=== PATIENT | female | born 1980 | race Caucasian/White ===

== ENCOUNTER 2016-03-23 07:42 | Emergency (ER) | payer MEDICARE, BC ==
[2016-03-23 07:46] VITALS: BP 146/93; PULSE 120; RESP 20; TEMP 97.9
[2016-03-23] MEDS ORDERED: KETOROLAC 60 MG/2 ML VIAL IM STA (08:20)
--- NOTE | 2016-03-23 08:23 | ED ---
ENT HPI - General Chief complaint: Dental/Oral Stated complaint: dental Time Seen by Provider: 03/23/16 08:09 Source: patient, RN notes reviewed Mode of arrival: ambulatory Limitations: no limitations - History of Present Illness Initial comments: 36-year-old female presents emergency Department with chief complaint of dental pain. Patient states she's been having on and off dental pain since beginning of the year. Patient was on penicillin and multiple other antibiotics for pneumonia. Patient states that over the last which she's had increased pain. She states that she just got dental insurance no she has not scheduled appointment as she states she has to wait for her taxes to come in. I did explain to her that she should follow-up sooner and scheduled appointment if there is awaiting period. Patient denies fever, chills, neck stiffness, headache or dizziness. Patient states she has right upper dental pain. She states she's missing almost all her teeth. - Related Data Home Medications Medication Instructions Recorded Confirmed Gabapentin 800 mg PO QID 05/12/14 03/23/16 oxyCODONE-APAP 10-325MG [Percocet 1 tab PO QID PRN 08/21/15 03/23/16 10-325 mg] ALPRAZolam [Xanax] 0.5 mg PO BID PRN 03/23/16 03/23/16 Baclofen [Lioresal] 10 mg PO TID PRN 03/23/16 03/23/16 Lisdexamfetamine Dimesylate 70 mg PO QAM 03/23/16 03/23/16 [Vyvanse] Promethazine HCl/Codeine 5 ml PO TID PRN 03/23/16 03/23/16 [Prometh-Codein 6.25-10 mg/5 ml] Previous Rx's Medication Instructions Recorded Clindamycin HCl 300 mg PO Q6HR #40 cap 03/23/16 Allergies Allergy/AdvReac Type Severity Reaction Status Date / Time magnesium Allergy Unknown Verified 03/23/16 08:17 ondansetron HCl Allergy Unknown Verified 03/23/16 08:17 [From Zofran (as hydrochloride)] prochlorperazine Allergy Unknown Verified 03/23/16 08:17 [From Compazine] Sulfa (Sulfonamide Allergy Unknown Verified 03/23/16 08:17 Antibiotics) terbutaline sulfate Allergy Unknown Verified 03/23/16 08:17 [From Hari] Review of Systems ROS Statement: Those systems with pertinent positive or pertinent negative responses have been documented in the HPI. ROS Other: All systems not noted in ROS Statement are negative. Past Medical History Past Medical History: Osteoarthritis (OA) History of Any Multi-Drug Resistant Organisms: None Reported Past Surgical History: Appendectomy, Cholecystectomy, Hysterectomy, Orthopedic Surgery Additional Past Surgical History / Comment(s): chronic back pain herniated discs Past Psychological History: No Psychological Hx Reported Smoking Status: Current every day smoker Past Alcohol Use History: Occasional Past Drug Use History: None Reported General Exam Limitations: no limitations General appearance: alert, in no apparent distress Head exam: Present: atraumatic, normocephalic, normal inspection Eye exam: Present: normal appearance, PERRL, EOMI. Absent: scleral icterus, conjunctival injection, periorbital swelling ENT exam: Present: mucous membranes moist, TM's normal bilaterally, normal external ear exam, other (No trismus patient has no mandible tenderness). Absent: normal exam, normal oropharynx (Edentulous, all dentition are eroded with no definite abscess there is mild swelling the right upper region with no erythema) Neck exam: Present: normal inspection, tenderness, full ROM, lymphadenopathy Respiratory exam: Present: normal lung sounds bilaterally. Absent: respiratory distress, wheezes, rales, rhonchi, stridor Cardiovascular Exam: Present: regular rate, normal rhythm, normal heart sounds. Absent: systolic murmur, diastolic murmur, rubs, gallop, clicks GI/Abdominal exam: Present: soft, normal bowel sounds. Absent: distended, tenderness, guarding, rebound, rigid Neurological exam: Present: alert, oriented X3, CN II-XII intact Skin exam: Present: warm, dry, intact, normal color. Absent: rash Course Vital Signs 03/23/16 07:43 Temperature 97.9 F Pulse Rate 120 H Respiratory 20 Rate Blood Pressure 146/93 O2 Sat by Pulse 97 Oximetry Medical Decision Making - Medical Decision Making 28-year-old female presented for dental pain. Patient is very edentulous and has all her teeth eroded. Patient is advised to follow-up with dentist in one to 2 days. Patient was started on clindamycin. Patient has normal pain meds by her primary care physician Dr. Pineda. Patient is advised to follow-up with him for further pain medication which includes Percocet. Disposition Clinical Impression: Pain due to dental caries, Fracture of tooth Disposition: HOME SELF-CARE Condition: Stable Instructions: Dental Caries (ED), Toothache (ED) Additional Instructions: Please return to the Emergency Department if symptoms worsen or any other concerns. Follow-up with your primary care physician for pain medications.Schedule an appointment in one to 2 days with your dentist. Referrals: Tom Anguiano MD [Primary Care Provider] - 1-2 days Time of Disposition: 08:23
== END 2016-03-23 08:42 | disposition home or self-care (01) ==
LOC: EC 07:42
DX: S02.5XXA Fracture of tooth (traumatic), initial encounter for closed fracture (principal); K02.9 Dental caries, unspecified; M19.90 Unspecified osteoarthritis, unspecified site; F17.200 Nicotine dependence, unspecified, uncomplicated; Z79.899 Other long term (current) drug therapy; Z88.2 Allergy status to sulfonamides; Z88.8 Allergy status to other drugs, medicaments and biological substances
CPT/HCPCS: 99282; 96372; J1885

== ENCOUNTER → 2016-04-06 | Outpatient (CLI) | payer BC, MEDICARE ==
[2016-04-03 17:40] VITALS: BMI 23.9
[2016-04-06 13:21] VITALS: BP 125/84; PULSE 90; RESP 16; TEMP 97.8
--- NOTE | 2016-04-06 13:34 | P.HPIM ---
History of Present Illness H&P Date: 04/06/16 Chief Complaint: neck and low back pain This is a 36-year-old patient referred by Dr. Anguiano for chronic pain in neck and low back with some radiation to legs. Patient has been taking medications from primary care physician including Percocet medications with some relief; patient states that she used to be on Oxycontin at extremely high doses but came off these medications herself. Patient denies adverse drug effects from medications. Patient also denies new-onset weakness, bowel/bladder incontinence , or any other signs or symptoms of cauda equina syndrome. There are no signs of acute intoxication, and no indications of medication diversion or overuse. Patient notes that pain worsens significantly with physical activity and walking , and improves with rest, ice and medication. Patient has used several types of medications for pain, including NSAIDS, OPIOIDS (including Percocet and Oxycontin), TRAMADOL, ANTIDEPRESSANTS, and BENZODIAZEPINES. Patient HAS NOT had surgery, but has been told that she needs it on her lumbar spine. Patient HAS had injections previously at our institution, but records are unavailable at this time. Patient HAS NOT had physical therapy recently. In addition to above, 13-point review of systems is also negative for chest pain , shortness of breath, changes in vision, changes in hearing, new onset weakness , abdominal pain, diarrhea, extreme fatigue, malaise, fever, skin changes, homicidal or suicidal ideation, or bowel or bladder incontinence. Vital Signs: Reviewed in EMR Gen: WDWN, AAOx3, NAD HEENT: NCAT, EOMI, hearing grossly normal; + tenderness over bilateral occipital ridges Pulm: resp unlabored Abd: soft, NT, ND Neck: supple, trachea midline ROM in flexion cervical spine: reduced ROM in extension cervical spine: reduced Cervical paravertebral tenderness: + Cervical Facet tenderness: + bilateral Spurling's: negative Upper extremity: decreased artist color separation strength due to pain ROM in flexion lumbar spine: reduced ROM in extension lumbar spine: reduced Lumbar paravertebral tenderness: + Facet loading: + bilateral SI joint tenderness: + R side Raman's test: + R side Straight leg raise: neg Neuro: CN II-XII grossly intact, muscle strength lower extremities PRESERVED Past Medical History Past Medical History: Hypertension, Musculoskeletal Disorder, Osteoarthritis (OA ), Syncope Additional Past Medical History / Comment(s): herniated & ruptured discs, on & off issues w/elevated BP-not taking anything for @this time, hx. of low potassium, dysregulation of brain per pt-has had some "passing out" spells-last one August 2015 History of Any Multi-Drug Resistant Organisms: None Reported Past Surgical History: Appendectomy, Cholecystectomy, Hysterectomy, Orthopedic Surgery Additional Past Surgical History / Comment(s): 14 knee surgeries, recent dental surg. Past Anesthesia/Blood Transfusion Reactions: No Reported Reaction Past Psychological History: No Psychological Hx Reported Smoking Status: Current every day smoker Past Alcohol Use History: None Reported Additional Past Alcohol Use History / Comment(s): up to 1ppd >20 yrs. Past Drug Use History: None Reported - Past Family History Mother Family Medical History: Cancer Father Family Medical History: Cancer Medications and Allergies Home Medications Medication Instructions Recorded Confirmed Type Gabapentin 800 mg PO QID 05/12/14 04/06/16 History oxyCODONE-APAP 10-325MG [Percocet 1 tab PO QID PRN 08/21/15 04/06/16 History 10-325 mg] ALPRAZolam [Xanax] 0.5 mg PO BID PRN 03/23/16 04/06/16 History Baclofen [Lioresal] 10 mg PO TID PRN 03/23/16 04/06/16 History Ibuprofen [Motrin] 800 mg PO Q8HR PRN 04/06/16 04/06/16 History Allergies Allergy/AdvReac Type Severity Reaction Status Date / Time ondansetron HCl Allergy Anaphylaxis Verified 04/06/16 13:01 [From Zofran (as hydrochloride)] prochlorperazine Allergy Anaphylaxis Verified 04/06/16 13:01 [From Compazine] terbutaline sulfate Allergy Anaphylaxis Verified 04/06/16 13:01 [From Brethine] magnesium sulfate Allergy Anaphylaxis Uncoded 04/06/16 13:01 Physical Exam Vitals: Vital Signs Temp Pulse Resp BP Pulse Ox 04/06/16 13:03 97.8 F 90 16 125/84 96 Results Comments: MRI lumbar spine dated 12/28/2013 demonstrates degenerative disc disease at multiple levels in lumbar spine and also spondylosis and facet arthropathy at the L3 through S1 levels. Patient does have mild circumferential disc bulges at the L2-L3 L3-L4 L4-L5 and L5-S1 levels. There is effacement of the thecal sac at the L5-S1 and L4-L5 levels. There is also mild central canal stenosis at the L4-L5 level secondary to ligamentum flavum hypertrophy and facet joint arthropathy. Assessment and Plan (1) Occipital neuralgia Status: Chronic (2) Spondylosis of lumbar region without myelopathy or radiculopathy Status: Chronic (3) Cervical spondylosis without myelopathy Status: Chronic Plan: Plan: 1. Explanation: Opioid and psychological risk scores were reviewed. Diagnoses , prognoses, and multiple treatment options including but not limited to physical therapy, interventional therapies, adjuvant medical therapies, narcotic medication therapies, and surgery were discussed with the patient and all questions were answered to the patient's satisfaction. 2. Opioid agreement: no opioids prescribed today 3. Counseling: The patient was counseled extensively on SMOKING CESSATION, BODY MASS INDEX, EXERCISE. Specifically, the patient was instructed regarding the importance of smoking cessation, obesity, and exercise in the context of both chronic pain and overall health. 4. Procedures: awaiting new MRI scans of cervical and lumbar spines 5. Consultations: none 6. Investigations: MRIs ordered 7. Medications: none prescribed 8. Disposition: The patient will obtain MRIs of her lumbar and cervical spine and will return for further evaluation in 4-6 weeks to see if she is a candidate for any procedures. I anticipate that occipital nerve blocks and lumbar medial branch RFAs will help her most. PQRS measures: 1-Patient's medications are documented in the chart. 2-Tobacco use is positive, counseling given 3-Patient has not had a pneumococcal vaccine. 4-Advanced care planning discussed, patient unable to give. 5-Opioid contract NOT signed with the patient today. 6-Pain positive, follow-up visit or procedure scheduled 7-Patient's blood pressure measured and documented, and WNL. 8-Patient's weight was measured, and body mass index within the normal limits. 9-Patient WAS NOT identified as an unhealthy alcohol user. Time with Patient: Greater than 30
== END | disposition home or self-care (01) ==
LOC: PNWHC3 12:45
PROVIDERS: ATTEND Anesthesiology
DX: M54.81 Occipital neuralgia (principal); M47.816 Spondylosis without myelopathy or radiculopathy, lumbar region; M47.812 Spondylosis without myelopathy or radiculopathy, cervical region; M51.36 Other intervertebral disc degeneration, lumbar region; M51.26 Other intervertebral disc displacement, lumbar region; M46.96 Unspecified inflammatory spondylopathy, lumbar region; M48.06 Spinal stenosis, lumbar region; Z79.899 Other long term (current) drug therapy; F17.200 Nicotine dependence, unspecified, uncomplicated; Z88.8 Allergy status to other drugs, medicaments and biological substances; I10 Essential (primary) hypertension; M19.90 Unspecified osteoarthritis, unspecified site
CPT/HCPCS: 99201

== ENCOUNTER → 2016-11-05 | Outpatient (CLI) | payer MEDICARE, BC ==
--- NOTE | 2016-11-05 23:26 | MR ---
EXAMINATION TYPE: MR lumbar spine wo con DATE OF EXAM: 11/05/2016 COMPARISON: NONE HISTORY: Radiculopathy TECHNIQUE: Multiplanar, multisequence images of the lumbar spine were acquired. There is 6 mm anterior subluxation of L4 in relation L5. There is mild narrowing of the spinal canal due to the subluxation. There is probably bilateral L4 spondylolysis. There is no compression fracture. There is narrowing of L4-5 and L5-S1 disc spaces. I see no focal ghulam ne destruction. There is no paraspinal mass. The sacroiliac joints appear intact. There is a moderate disc herniation posteriorly at T10-11. The neural foramina are fairly well maintained. IMPRESSION: Moderate-sized posterior disc herniation at T10-11 without change. spondylolysis of L4 with first deg ree L4-5 spondylolisthesis. This is slightly worse than last exam. There is a mild relative spinal st enosis at this level. There is posterior right-sided L5-S1 disc herniation on the old exam that appears significantly small er on today's exam. This is best seen on the sagittal T2 images.
== END | disposition home or self-care (01) ==
LOC: RADMRIMAIN 17:57
PROVIDERS: ATTEND Family Medicine
DX: M48.06 Spinal stenosis, lumbar region (principal); M51.17 Intervertebral disc disorders with radiculopathy, lumbosacral region; M43.16 Spondylolisthesis, lumbar region
CPT/HCPCS: 72148

== ENCOUNTER 2018-09-15 11:34 | Inpatient (IN) | payer MEDICARE, BC ==
[2018-09-15] MEDS ORDERED: LORazepam 1 MG TAB PO PRN (13:20)
[2018-09-15] MEDS ORDERED: MAGNESIUM HYDROXIDE 2,400 MG/10 ML CUP PO PRN (13:20)
[2018-09-15] MEDS ORDERED: ACETAMINOPHEN TAB 325 MG TAB PO PRN (13:20)
[2018-09-15] MEDS ORDERED: MAG HYDROX/AL HYDROX/SIMETH 30 ML CUP PO PRN (13:20)
[2018-09-15] MEDS ORDERED: ZIPRASIDONE 20 MG VIAL IM PRN (13:20)
[2018-09-15] MEDS ORDERED: LORazepam 2 MG/ML INJ IM PRN (13:27)
[2018-09-15] MEDS: GABAPENTIN 400 MG CAP PO SCH ×3 (13:57→21:07)
[2018-09-15] MEDS: HYDROcodone/APAP 5-325MG 1 EACH TAB PO PRN (13:57)
[2018-09-15] MEDS: NICOTINE 14MG/24HR PATCH TRANSDERM SCH (13:57)
[2018-09-15 14:39] VITALS: BMI 25.7
[2018-09-15 19:04] LABS: Appearance,Urine Clear (Clear); Bilirubin,Urine Negative (Negative); Blood,Urine Negative (Negative); Color,Urine Yellow; Glucose,Urine (UA) Negative (Negative); Ketones,Urine Negative (Negative); Leukocyte Esterase,Urine Moderate (Negative); Mucus,Urine Many /hpf; Nitrite,Urine Negative (Negative); Protein,Urine Negative (Negative); RBC,Urine 1 /hpf (0-5); Specific Gravity,Urine 1.018 (1.001-1.035); Squamous Epithelial Cell,Urine 3 /hpf (0-4); Urobilinogen,Urine <2.0 mg/dL (<2.0); WBC,Urine 1 /hpf (0-5)
[2018-09-16 01:07] LABS: Urine Alcohol Negative (Negative); Urine Barbiturate Positive (Negative); Urine Cocaine Negative (Negative); Urine Methadone Negative (Negative); Urine Opiates Positive (Negative); Urine Phencyclidine Negative (Negative)
[2018-09-16] MEDS: HYDROcodone/APAP 5-325MG 1 EACH TAB PO PRN ×2 (06:34→15:31)
[2018-09-16] MEDS: GABAPENTIN 400 MG CAP PO SCH ×4 (08:29→20:46)
[2018-09-16] MEDS: NICOTINE 14MG/24HR PATCH TRANSDERM SCH (08:29)
[2018-09-16 10:34] LABS: Basophils % (A) 0 %; Eosinophils # (A) 0.3 k/uL (0-0.7); Eosinophils % (A) 3 %; HCT 40.3 % (34.0-46.0); HGB 13.6 gm/dL (11.4-16.0); Lymphocytes # (A) 2.3 k/uL (1.0-4.8); Lymphocytes % (A) 28 %; MCH 30.6 pg (25.0-35.0); MCHC 33.8 g/dL (31.0-37.0); MCV 90.7 fL (80.0-100.0); Mean Platelet Volume 7.2; Monocytes # (A) 0.4 k/uL (0-1.0); Monocytes % (A) 5 %; Neutrophils # (A) 5.1 k/uL (1.3-7.7); Neutrophils % (A) 62 %; Platelet Count 372 k/uL (150-450); RBC 4.44 m/uL (3.80-5.40); RDW 13.2 % (11.5-15.5); WBC 8.2 k/uL (3.8-10.6)
[2018-09-16 10:46] LABS: ALT 10 U/L (9-52); AST 14 U/L (14-36); African American GFR (CKD) >90 (>60 ml/min/1.73 sqM); Albumin 4.7 g/dL (3.5-5.0); Alkaline Phosphatase 61 U/L (38-126); Anion Gap 10 mmol/L; Bilirubin,Unconjugated 0.3 mg/dL (0.0-1.1); Blood Urea Nitrogen 14 mg/dL (7-17); Calcium 10.2 mg/dL (8.4-10.2); Carbon Dioxide 28 mmol/L (22-30); Chloride 104 mmol/L (98-107); Cholesterol 258 mg/dL (<200); Glucose 89 mg/dL (74-99); HDL Cholesterol 42 mg/dL (40-60); LDL Cholesterol,Calculated 152 mg/dL (0-99); Non-African American GFR(CKD) >90 (>60 ml/min/1.73 sqM); Potassium 4.1 mmol/L (3.5-5.1); Sodium 142 mmol/L (137-145); Total Bilirubin 0.2 mg/dL (0.2-1.3); Total Protein 7.7 g/dL (6.3-8.2); Triglycerides 318 mg/dL (<150)
[2018-09-16 10:49] LABS: Bilirubin, Delta -0.1 mg/dL (0.0-0.2)
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
[2018-09-16] MEDS ORDERED: NAPROXEN 250 MG TAB PO STA (13:09)
[2018-09-16] MEDS ORDERED: FAMOTIDINE 20 MG TAB PO STA (13:09)
[2018-09-16] MEDS ORDERED: ACETAMINOPHEN TAB 500 MG TAB PO STA (13:09)
[2018-09-16 17:43] LABS: Hemoglobin A1C 5.7 % (4.0-6.0)
--- NOTE | 2018-09-16 17:44 | P.CONS ---
History of Present Illness - Reason for Consult Consult date: 09/16/18 Medical management requested by Dr. Keller Requesting physician: Ivan Keller - Chief Complaint Suicidal - History of Present Illness History of presenting complaint: This is a 38-year-old patient who follows with Dr. maxwell out of [place]. Patient is a long-standing history of anxiety depression. 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 Patient has 3 teenagers sons in school. Patient started getting depressed anxious and her relationship with her is not very good. Moneys divided up and about the spent things. Patient took 1 g of methamphetamine and about 50 Percocet that was about 4 days ago. Then she wanted to take effect and kill her. As nothing really happen she went down next to the the [place] and hoping the overdose to take effect. She realizes what she was doing and she feels that the children needed her and she decided to present to the hospital. She says is rather anxious depressed. Patient has a chronic pain in the lower back from slipped disc. No fever no chills. Appetite is okay. No bowel or urinary symptoms. No trouble with getting about. Patient is not employed. Is on disability. Review of systems: GEN.: None EYES: None HEENT: None NECK: None RESPIRATORY: None CARDIOVASCULAR: None GASTROINTESTINAL: None GENITOURINARY: None MUSCULOSKELETAL: Chronic low back pain LYMPHATICS: None HEMATOLOGICAL: None PSYCHIATRY: Anxious depression NEUROLOGICAL: None Past medical history: Anxiety depression, or back pain from slipped disc Social history: Smokes about a pack a day. Denies alcohol. Is on disability. with 3 children. 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 EYES: Pupils equal. Conjunctiva normal. HEENT: External appearance of nose and ears normal, oral cavity grossly normal. NECK: JVD not raised; masses not palpable. HEART: First and second heart sounds are normal; no edema. LUNGS: Respiratory rate normal; clear to auscultation. ABDOMEN: Soft, nontender, liver spleen not palpable, no masses palpable. PSYCH: Alert and oriented x3; mood and affect anxiousl. NEUROLOGICAL: Cranial nerves grossly intact; no facial asymmetry, power and sensation grossly intact. LYMPHATICS: No lymph nodes palpable in the axilla and neck INVESTIGATIONS, reviewed in the clinical context: White count 8.2 hemoglobin 13.6 potassium 4.1 creatinine 0.59 LDL 152 TSH 0.169 Assessment: -Overdose of 1 g of meth and 50 Percocet about 4 days ago. Patient liver functions are normal. -Chronic nicotine dependence patient cigarette smoker -Chronic low back pain from slipped disc -Abdominal TSH Plan: We'll repeat patient's TSH and a free T4. To rule out hyperthyroidism. Patient advised against smoking and will be given a nicotine patch. The psychiatry floor has policies about pain medication to be followed. Patient advised to get a second fall in different activities and get a good [facility] getting good care at the psychiatry unit [address] Keller Past Medical History Past Medical History: Osteoarthritis (OA) History of Any Multi-Drug Resistant Organisms: None Reported Past Surgical History: Appendectomy, Cholecystectomy, Hysterectomy, Orthopedic Surgery Additional Past Surgical History / Comment(s): chronic back pain herniated discs Past Psychological History: No Psychological Hx Reported Smoking Status: Current every day smoker Past Alcohol Use History: Occasional Additional Past Alcohol Use History / Comment(s): Stated she use to drink 10 years ago Past Drug Use History: Methamphetamine, Opiates Medications and Allergies Home Medications Medication Instructions Recorded Confirmed Type Gabapentin 800 mg PO QID 05/12/14 09/15/18 History oxyCODONE-APAP 10-325MG [Percocet 1 tab PO QID PRN 08/21/15 09/15/18 History 10-325 mg] Baclofen [Lioresal] 10 mg PO TID PRN 03/23/16 09/15/18 History ALPRAZolam [Xanax] 0.25 mg PO BID PRN 09/15/18 09/15/18 History Rizatriptan Benzoate [Maxalt] 10 mg PO DAILY PRN 09/15/18 09/15/18 History Allergies Allergy/AdvReac Type Severity Reaction Status Date / Time ondansetron HCl Allergy Anaphylaxis Verified 09/15/18 14:17 [From Zofran (as hydrochloride)] prochlorperazine Allergy Anaphylaxis Verified 09/15/18 14:17 [From Compazine] terbutaline sulfate Allergy Anaphylaxis Verified 08/08/19 14:17 [From Brethine] magnesium sulfate Allergy Anaphylaxis Uncoded 09/15/18 14:17 Physical Exam Vitals: Vital Signs Temp Pulse Pulse Resp BP BP Pulse Ox 09/16/18 06:48 98.2 F 95 16 123/74 09/15/18 14:28 97.5 F L 106 H 18 144/112 97 09/15/18 14:16 97.5 F L 106 H 18 144/112 97 09/15/18 11:42 98.8 F 108 H 20 142/96 98 Results CBC & Chem 7: 09/16/18 09:48 09/16/18 09:48 Labs: Abnormal Lab Results - Last 24 Hours (Table) 09/15/18 09/15/18 Range/Units 18:50 18:50 Ur Leukocyte Esterase Moderate H (Negative) Urine Mucus Many H (None) /hpf Urine Opiates Screen Positive H (Negative) ng/mL Urine Barbiturates Positive H (Negative) ng/mL Ur Amphetamine Screen Positive H (Negative) ng/mL
[2018-09-16] MEDS ORDERED: hydrOXYzine PAMOATE 25 MG CAP PO STA (22:04)
[2018-09-17] MEDS: HYDROcodone/APAP 5-325MG 1 EACH TAB PO PRN ×3 (06:27→22:07)
[2018-09-17 06:39] VITALS: RESP 16
[2018-09-17] MEDS: GABAPENTIN 400 MG CAP PO SCH ×4 (08:29→21:14)
[2018-09-17] MEDS: NICOTINE 21MG/24HR PATCH TRANSDERM SCH ×2 (08:29→13:16)
[2018-09-17] MEDS ORDERED: FAMOTIDINE 20 MG TAB PO STA (11:47)
[2018-09-17] MEDS ORDERED: NAPROXEN 250 MG TAB PO STA (11:48)
[2018-09-17] MEDS ORDERED: ACETAMINOPHEN TAB 500 MG TAB PO STA (11:48)
--- NOTE | 2018-09-17 16:26 | P.PN ---
Progress Note - Text Progress Note Date: 09/17/18 Interval history: Patient is seen in cross coverage today. She describes that she feels she's having some opioid withdrawal type symptoms. She does inquire regarding something as needed for anxiety, she recently was on Xanax. We discussed Vistaril when necessary which she states the one-time dose last night did give her a little benefit. She makes reference to wanting to be discharged in time for her son's birthday on Wednesday. She states the last time she had any thoughts of suicide was on . She is agreeable with initiating mood stabilizer Lamictal. MEntal status exam: She is alert and cooperative with the interview. Her speech is fluent, not rapid or pressured. Her thought processes are organized. She states the last time she had a thought of suicide was on . She does not show any active psychosis symptoms. Mood overall seems to be improved. Plan: We will initiate Lamictal 25 motives at bedtime for mood stabilization. We'll order Vistaril as needed for any significant anxiety. We'll continue to cover this patient through the weekend. We'll continue to monitor for any medication side effects and monitor her ongoing response to treatment.
[2018-09-17] MEDS: hydrOXYzine PAMOATE 25 MG CAP PO PRN (17:08)
[2018-09-17] MEDS: lamoTRIgine 25 MG TAB PO SCH (21:14)
--- NOTE | 2018-09-17 21:27 | XR ---
EXAMINATION TYPE: XR knee limited LT DATE OF EXAM: 09/17/2018 COMPARISON: NONE HISTORY: Knee pain TECHNIQUE: 2 views FINDINGS: I see no fracture nor dislocation. There is some hypertrophic osteoarthritis in the medial and lateral joint space of the knee. There is no sign of joint effusion. There is spurring at the tib ial tubercle. IMPRESSION: Moderate osteoarthritis for the patient's age. No fracture seen.
[2018-09-18] MEDS: HYDROcodone/APAP 5-325MG 1 EACH TAB PO PRN ×3 (07:07→22:49)
[2018-09-18] MEDS: NICOTINE 21MG/24HR PATCH TRANSDERM SCH (08:32)
[2018-09-18] MEDS: GABAPENTIN 400 MG CAP PO SCH ×4 (08:32→21:05)
[2018-09-18] MEDS: hydrOXYzine PAMOATE 25 MG CAP PO PRN ×2 (08:35→21:50)
--- NOTE | 2018-09-18 08:50 | P.CNOR ---
History of Present Illness - HPI Consult date: 09/18/18 History of present illness: This is a 38-year-old female who is admitted for major depression with psychosis. Orthopedics is consulted due to left knee pain. Patient states that she has had multiple surgeries on the left knee by Dr. Joe. Patient states that yesterday she hit her left knee on the corner of her bed and feels that her kneecap is moving out of place. Patient states that this has happened to her before and she has multiple knee braces. Patient states that she has been able to ambulate, but she feels clicking in the knee. Patient denies any fever/chills, numbness, weakness, tingling, abdominal pain, shortness of breath or chest pain. Review of Systems See HPI. Past Medical History Past Medical History: Osteoarthritis (OA) History of Any Multi-Drug Resistant Organisms: None Reported Past Surgical History: Appendectomy, Cholecystectomy, Hysterectomy, Orthopedic Surgery Additional Past Surgical History / Comment(s): chronic back pain herniated discs Past Psychological History: No Psychological Hx Reported Smoking Status: Current every day smoker Past Alcohol Use History: Occasional Additional Past Alcohol Use History / Comment(s): Stated she use to drink 10 years ago Past Drug Use History: Methamphetamine, Opiates Medications and Allergies Home Medications Medication Instructions Recorded Confirmed Type Gabapentin 800 mg PO QID 05/12/14 09/15/18 History oxyCODONE-APAP 10-325MG [Percocet 1 tab PO QID PRN 08/21/15 09/15/18 History 10-325 mg] Baclofen [Lioresal] 10 mg PO TID PRN 03/23/16 09/15/18 History ALPRAZolam [Xanax] 0.25 mg PO BID PRN 09/15/18 09/15/18 History Rizatriptan Benzoate [Maxalt] 10 mg PO DAILY PRN 09/15/18 09/15/18 History Allergies Allergy/AdvReac Type Severity Reaction Status Date / Time ondansetron HCl Allergy Anaphylaxis Verified 09/15/18 14:17 [From Zofran (as hydrochloride)] prochlorperazine Allergy Anaphylaxis Verified 09/15/18 14:17 [From Compazine] terbutaline sulfate Allergy Anaphylaxis Verified 09/15/18 14:17 [From Brethine] magnesium sulfate Allergy Anaphylaxis Uncoded 09/15/18 14:17 Physical Examination On exam patient is able to ambulate with a mild limp. There is mild tenderness to palpation over the inferior border of the patella and over the tibial tubercle. There is minimal swelling. Patient has well-healed surgical scars present. Skin is intact. Patient has flexion of the left knee to 95. Patient has limited active knee extension due to pain. 4/5 strength with resisted knee extension. Calf is soft and nontender to palpation. Sensation intact. Neurovascular status and circulatory status are intact. Results X-rays of the left knee dated 09/17/2018 are negative for any fracture or dislocation. There are mild arthritic changes. - Labs Labs: H & H 09/16/18 Range/Units 09:48 Hgb 13.6 (11.4-16.0) gm/dL Hct 40.3 (34.0-46.0) % Result Diagrams: 09/16/18 09:48 09/16/18 09:48 Assessment and Plan (1) Contusion of left knee Current Visit: Yes Status: Acute Code(s): S80.02XA - CONTUSION OF LEFT KNEE, INITIAL ENCOUNTER SNOMED Code(s): 83680659 (2) Left knee sprain Current Visit: Yes Status: Acute Code(s): S83.92XA - SPRAIN OF UNSPECIFIED SITE OF LEFT KNEE, INITIAL ENCOUNTER SNOMED Code(s): 04919268 (3) Left knee pain Current Visit: Yes Status: Acute Code(s): M25.562 - PAIN IN LEFT KNEE SNOMED Code(s): 52031658 Plan: 1. Recommend rest, ice and elevation. 2. Recommend use of a hinged knee brace when ambulating. 3. No surgical intervention is planned. Patient may follow up as an outpatient.
--- NOTE | 2018-09-18 12:08 | P.PN ---
Progress Note - Text Progress Note Date: 09/18/18 Interval history: Patient is seen again in cross coverage today. She reports that her mood is doing better. She did fine with taking the Lamictal last night. She talks about her son's birthday on Wednesday. She would like to be able to be discharged soon. She talks about catching her knee on a bed yesterday, history of multiple knee surgeries. She did have a knee x-ray and was seen by orthopedics and has been fitted for a brace. She is supposed to follow-up with orthopedics as an outpatient and have an MRI as an outpatient. Mental status exam: She is alert and cooperative with the interview. Her speech is fluent, not rapid or pressured. Her affect shows range. Her mood is improv ed. She denies any thoughts of harm to self or others. No evidence of psychosis or agitation. Plan: Patient will be maintained on current psychotropic medication regimen. Continue to monitor for any medication side effects and monitor her ongoing response to treatment.
[2018-09-18] MEDS: lamoTRIgine 25 MG TAB PO SCH (21:05)
--- NOTE | 2018-09-19 00:28 | XR ---
EXAM: XR Right Hand Complete, 3 or More Views CLINICAL HISTORY: ITS.REASON XR Reason: Punched the wall TECHNIQUE: Frontal, lateral and oblique views of the right hand. COMPARISON: No relevant prior studies available. FINDINGS: Bones/joints: No acute fracture. No dislocation. Soft tissues: Unremarkable. No radiopaque foreign body. IMPRESSION: No acute osseous findings.
[2018-09-19] MEDS: GABAPENTIN 400 MG CAP PO SCH ×4 (09:03→20:59)
[2018-09-19] MEDS: NICOTINE 21MG/24HR PATCH TRANSDERM SCH (09:03)
[2018-09-19] MEDS: HYDROcodone/APAP 5-325MG 1 EACH TAB PO PRN ×2 (09:05→17:54)
--- NOTE | 2018-09-19 12:36 | P.GSCN ---
<Lina Frias A - Last Filed: 09/19/18 12:29> History of Present Illness Consult date: 09/19/18 Reason for Consult: evaluate right hand Requesting physician: Mingo Hansen History of present illness: CHIEF COMPLAINT: evaluate right hand after patient punched a wall HISTORY OF PRESENT ILLNESS: 38-year-old female who is currently admitted to the mental health unit secondary to depression and suicidal ideation. Apparently the patient punched a wall yesterday. General surgery was consulted for further evaluation. Patient currently denies pain to right hand. No obvious deformities. No abrasions or wounds to hand. PAST MEDICAL HISTORY: See list. PAST SURGICAL HISTORY: See list. MEDICATIONS: See list. ALLERGIES: See list. SOCIAL HISTORY: history of illicit drug use. REVIEW OF SYSTEMS: CONSTITUTIONAL: Denies fever or chills. HEENT: Denies blurred vision, vision changes, or eye pain. Denies hemoptysis ENDOCRINE: Denies heat or cold intolerance. CARDIOVASCULAR: Denies chest pain or pressure. RESPIRATORY: No shortness of breath. GASTROINTESTINAL: Denies abdominal pain. Denies nausea or vomiting. NEURO: Denies history of seizures. PSYCH: History of depression and suicidal ideation HEMATOLOGIC: Denies bleeding disorders. LYMPHATIC: The patient denies any lumps and bumps around the neck. GENITOURINARY: Denies any blood in urine or increased urinary frequency. MUSCULOSKELETAL: Denies myalgias. Denies joint swelling. Denies decreased range of motion beyond patients baseline. SKIN: Denies pruitis. Denies rash. PHYSICAL EXAM: VITAL SIGNS: Currently stable. GENERAL: Well-developed in no acute distress. HEENT: No sclera icterus. Extraocular movements grossly intact. Moist buccal mucosa. Head is atraumatic, normocephalic. Hears conversational speech. No nasal drainage. NECK: Supple without lymphadenopathy. CHEST: Non-labored respirations and equal bilateral excursions. CARDIOVASCULAR: Regular rate with regular rhythm. Palpable 2+ radial pulses. ABDOMEN: Soft. Nondistended. Nontender. MUSCULOSKELETAL: No clubbing, cyanosis or edema. Right hand without obvious deformities. No abrasions or open wounds. Palpable pulses. No edema to right hand. Capillary refill less than 3 seconds. NEUROLOGIC: No focal or lateralizing signs. Cranial nerves II through XII grossly intact. PSYCH: Appropriate affect. Alert and oriented to person, place and time. SKIN: Well perfused. Good skin turgor. LABORATORY DATA: No recent lab work completed. Lab results from 09/16/18 reviewed. IMAGING: Right hand XR: negative for fracture or dislocation. No soft tissue abnormality noted. ASSESSMENT: 1. Right hand pain, s/p punching a wall, XR negative PLAN: 1. Pain management per psychiatry and internal medicine 2. Patient may benefit from ice and elevation of right upper extremity 3. Will defer further evaluation and treatment to orthopedics who is on consult for left knee pain 4. We will sign off. Nurse practitioner note has been reviewed by physician. Signing provider agrees with the documented findings, assessment, and plan of care. Past Medical History Past Medical History: Osteoarthritis (OA) History of Any Multi-Drug Resistant Organisms: None Reported Past Surgical History: Appendectomy, Cholecystectomy, Hysterectomy, Orthopedic Surgery Additional Past Surgical History / Comment(s): chronic back pain herniated discs Past Psychological History: No Psychological Hx Reported Smoking Status: Current every day smoker Past Alcohol Use History: Occasional Additional Past Alcohol Use History / Comment(s): Stated she use to drink 10 years ago Past Drug Use History: Methamphetamine, Opiates Medications and Allergies Home Medications Medication Instructions Recorded Confirmed Type Gabapentin 800 mg PO QID 05/12/14 09/15/18 History oxyCODONE-APAP 10-325MG [Percocet 1 tab PO QID PRN 08/21/15 09/15/18 History 10-325 mg] Baclofen [Lioresal] 10 mg PO TID PRN 03/23/16 09/15/18 History ALPRAZolam [Xanax] 0.25 mg PO BID PRN 09/15/18 09/15/18 History Rizatriptan Benzoate [Maxalt] 10 mg PO DAILY PRN 09/15/18 09/15/18 History Allergies Allergy/AdvReac Type Severity Reaction Status Date / Time ondansetron HCl Allergy Anaphylaxis Verified 09/15/18 14:17 [From Zofran (as hydrochloride)] prochlorperazine Allergy Anaphylaxis Verified 09/15/18 14:17 [From Compazine] terbutaline sulfate Allergy Anaphylaxis Verified 09/15/18 14:17 [From Brethine] magnesium sulfate Allergy Anaphylaxis Uncoded 09/15/18 14:17 Surgical - Exam Vital Signs Temp Pulse Resp BP Pulse Ox 98.8 F 108 H 20 142/96 98 09/15/18 11:42 09/15/18 11:42 09/15/18 11:42 09/15/18 11:42 09/15/18 11:42 Results - Labs 09/16/18 09:48 09/16/18 09:48 <Latanya Geiger - Last Filed: 09/20/18 00:55> History of Present Illness History of present illness: Patient seen and evaluated. No skin breakdown along the left hand. No open cuts or sores. Xray's of hand personally reviewed without finding of fractures. Follow-up with ortho. General surgery will sign off. Surgical - Exam Vital Signs Temp Pulse Resp BP Pulse Ox 98.8 F 108 H 20 142/96 98 09/15/18 11:42 09/15/18 11:42 09/15/18 11:42 09/15/18 11:42 09/15/18 11:42 Results - Labs 09/16/18 09:48 09/16/18 09:48
[2018-09-19] MEDS: hydrOXYzine PAMOATE 25 MG CAP PO PRN ×2 (12:43→21:51)
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
[2018-09-19] MEDS: lamoTRIgine 25 MG TAB PO SCH (20:59)
[2018-09-20] MEDS: HYDROcodone/APAP 5-325MG 1 EACH TAB PO PRN (02:04)
[2018-09-20 06:34] VITALS: BP 129/76; PULSE 91; TEMP 97.8
[2018-09-20] MEDS: NICOTINE 21MG/24HR PATCH TRANSDERM SCH (08:25)
[2018-09-20] MEDS: GABAPENTIN 400 MG CAP PO SCH (08:25)
--- NOTE | 2018-09-20 10:44 | DS ---
DISCHARGE SUMMARY DATE OF SERVICE: 09/20/2018 DATE OF ADMISSION: 09/15/2018 DATED OF DISCHARGE: 09/20/2018 ADMISSION AND DISCHARGE DIAGNOSES: 1. Bipolar 1 disorder. 2. Substance use disorder. 3. Possible PTSD. 4. Osteoarthritis. HISTORY OF PRESENTING ILLNESS: The patient is a 38-year-old female. She lives with her . She was evaluated through the ED, admitted for depression with suicidal thinking. She stated that 4 days prior to admission, she attempted suicide by overdose of methamphetamine and Percocet. She was feeling overwhelmed and hopeless. She noted a history of 20 suicide attempts in the past. She reported current problems with poor sleep, poor energy, crying spells, marital distress, intermittent voices. This is her fourth psychiatric hospitalization with the last previous hospitalization occurring in 1998. Current psychoactive medications prescribed by her primary care physician including Xanax, Percocet, baclofen, and Fioricet. She had a past history of alcohol dependence in remission for over 10 years. She has a current use of methamphetamines on and off in the last year. She acknowledged abusing Percocet and Xanax recently. She also acknowledged over use of Fioricet. Urine drug screen was positive for opiates and barbiturates and amphetamines. She was admitted for further evaluation. PAST MEDICAL HISTORY AND PHYSICAL EXAM: As per medical consultation of Dr. Hansen. MENTAL STATUS EXAM: On admission, she had a disheveled appearance. Eye contact was appropriate. She had spontaneous, non pressured speech. Mood was depressed. She had hopeless thinking. She had suicidal thinking. She was tearful through the interview. Her thought process was clear she was cooperative. She was reporting recent auditory hallucinations. He she was hyperactive. She was oriented and alert. Course of hospitalization the patient was admitted for comprehensive medical psychiatric and psychosocial evaluation will engage the patient in individual and group therapeutic activities. She was started on Lamictal 25 mg a day. She had previously been on Lamictal and was in agreement that might be helpful for her. Again, she there was a focus on her chemical dependency issues. She was given hydrocodone 5 mg q.8 hours p.r.n. She was not prescribed any benzodiazepines or other opioids as early on patient acknowledged some withdrawal issues. She noted that suicide thoughts had seemed to dissipate. She showed improvement in her mood by day 2 over hospitalization. She was focused on family issues and hoping to be discharged for her son's birthday on Wednesday. She had some distress 1 evening when she watched a movie that included a mother having lost a child./ She got very distressed over this as she said that was in her history as well and it set off flashbacks for her. She attended most of the groups and seem to be appropriate and due for fairly well with group activities. She was able to focus on discharge planning on the day of discharge today. A family meeting was held with the patient and her . CONDITION AT DISCHARGE: Patient was stable. mood was improved. She tolerated her psychotropic medications. She voiced no thoughts of harm to self or others. RECOMMENDATIONS AND FOLLOWUP: Patient is discharged to home. DISCHARGE MEDICATIONS: 1. Lamictal 25 mg a day as her only psychotropic medication. 2. She is also on Neurontin 800 mg q.i.d. She has followup at [facility] 09/26/2018 at 3 pm with followup with Dr. Anguiano for primary care. MMODL / IJN: [id number] /
== END 2018-09-20 09:24 | disposition home or self-care (01) | DRG 885 ==
LOC: EC 11:34 → 3MHU 13:10
PROVIDERS: ADMIT Psychiatry & Neurology Psychiatry; ATTEND Psychiatry & Neurology Psychiatry
DX: F31.5 Bipolar disorder, current episode depressed, severe, with psychotic features (principal); R45.851 Suicidal ideations; F11.10 Opioid abuse, uncomplicated; F15.10 Other stimulant abuse, uncomplicated; F41.9 Anxiety disorder, unspecified; F43.10 Post-traumatic stress disorder, unspecified; S80.02XA Contusion of left knee, initial encounter; S83.92XA Sprain of unspecified site of left knee, initial encounter; M79.641 Pain in right hand; M19.90 Unspecified osteoarthritis, unspecified site; F10.11 Alcohol abuse, in remission; G89.29 Other chronic pain; M54.5 Low back pain; Z91.5 Personal history of self-harm; F17.210 Nicotine dependence, cigarettes, uncomplicated; Z71.6 Tobacco abuse counseling; Z79.899 Other long term (current) drug therapy; Z62.810 Personal history of physical and sexual abuse in childhood; Z85.43 Personal history of malignant neoplasm of ovary; Z90.710 Acquired absence of both cervix and uterus; Z90.79 Acquired absence of other genital organ(s); Z90.722 Acquired absence of ovaries, bilateral; Z90.49 Acquired absence of other specified parts of digestive tract; Z65.3 Problems related to other legal circumstances; Z88.8 Allergy status to other drugs, medicaments and biological substances; Z81.8 Family history of other mental and behavioral disorders; W22.03XA Walked into furniture, initial encounter; W22.01XA Walked into wall, initial encounter; Y92.231 Patient bathroom in hospital as the place of occurrence of the external cause
CPT/HCPCS: 80053; 80061; 80306; 81001; 81025; 82075; 82248; 83036; 84439; 84443; 85025

== ENCOUNTER → 2019-03-20 | Outpatient (CLI) | payer MEDICARE, BC ==
--- NOTE | 2019-03-21 09:06 | MM ---
Reason for exam: clinical finding. Last mammogram was performed 13 years and 2 months ago. History: Patient is postmenopausal. Took hormonal contraceptives for 2 years. Took estrogen for 1 year beginning at age 24. Indicated problem(s): pain in the left breast. Physical Findings: Nurse did not find any significant physical abnormalities on exam. MG 3D Diag Mammo W/Cad KEITH Bilateral CC and MLO view(s) were taken. Prior study comparison: January 12, 2006, CAD bilateral diagnostic mammogram. There are scattered fibroglandular densities. No suspicious abnormality. These results were verbally communicated with the patient and result sheet given to the patient on 03/20/19. ASSESSMENT: Incomplete: need additional imaging evaluation, BI-RAD 0 RECOMMENDATION: Ultrasound of the left breast. (for pain and swelling as well as milky and clear nipple discharge)
--- NOTE | 2019-03-21 09:07 | USB ---
Reason for exam: additional evaluation requested from abnormal screening. History: Patient is postmenopausal. Took hormonal contraceptives for 2 years. Took estrogen for 1 year beginning at age 24. US Breast LT Left complete breast ultrasound includes all four quadrants, the retroareolar region and axilla. Finding demonstrates no cystic or solid lesion seen. No suspicious sonographic finding. These results were verbally communicated with the patient and result sheet given to the patient on 03/20/19. ASSESSMENT: Negative, BI-RAD 1 RECOMMENDATION: Routine screening mammogram of both breasts in 1 year. Manage patient on a clinical basis. Surgical consultation recommended if clear persistent left nipple discharge.
== END | disposition home or self-care (01) ==
LOC: RADMAMWWP 13:49
PROVIDERS: ATTEND Family Medicine
DX: R92.8 Other abnormal and inconclusive findings on diagnostic imaging of breast (principal); N64.4 Mastodynia
CPT/HCPCS: 77066; 76641; G0279; 77062

== ENCOUNTER → 2019-12-05 | Outpatient (CLI) | payer MEDICARE, BC ==
--- NOTE | 2019-12-06 10:52 | ECHOF ---
Referral Reason:R00.0 Tachycardia, unspecified MEASUREMENTS -------- HEIGHT: 170.2 cm WEIGHT: 91.6 kg BP: RVIDd: 2.0 cm (< 3.3) IVSd: 1.1 cm (0.6 - 1.1) LVIDd: 2.5 cm (3.9 - 5.3) LVPWd: 1.3 cm (0.6 - 1.1) IVSs: 1.5 cm LVIDs: 1.5 cm LVPWs: 1.7 cm LAESV Index (A-L): 27.20 ml/m Ao Diam: 2.8 cm (2.0 - 3.7) AV Cusp: 1.9 cm (1.5 - 2.6) LA Diam: 3.7 cm (2.7 - 3.8) MV EXCURSION: 17.874 mm (> 18.000) MV EF SLOPE: 57 mm/s (70 - 150) EPSS: 0.7 cm MV E Catrachito: 0.70 m/s MV DecT: 159 ms MV A Catr[place]ito: 0.85 m/s MV E/A Ratio: 0.83 AR PHT: 254 ms RAP: 5.00 mmHg RVSP: 24.04 mmHg TAPSE: 23.64 mm FINDINGS -------- This was a technically good study. The left ventricular size is normal. Left ventricular wall thickness is normal. Overall left vent ricular systolic function is normal with, an EF between 55 - 60 %. The diastolic filling pattern is normal for the age of the patient 9.33. The right ventricle is normal in size. The left atrial size is normal. Normal LA size by volume 22+/-6 ml/m2. The right atrial size is normal. Patent foramen ovale present with right to left shunt. Aneurysmal Interatrial septum. The aortic valve is trileaflet and appears structurally normal. Trace amount of aortic regurgitatio n. The mitral valve is normal. There is trace mitral regurgitation. The tricuspid valve appears structurally normal. Trace tricuspid regurgitation present. Right amador tricular systolic pressure is normal at < 35 mmHg. There is no pulmonic regurgitation present. The aortic root size is normal. Normal inferior vena cava with normal inspiratory collapse consistent with estimated right atrial pre ssure of 5 mmHg. There is no pericardial effusion. CONCLUSIONS -------- 1. The left ventricular size is normal. 2. Left ventricular wall thickness is normal. 3. Overall left ventricular systolic function is normal with, an EF between 55 - 60 %. 4. The diastolic filling pattern is normal for the age of the patient 9.33 5. Patent foramen ovale present with right to left shunt. 6. Aneurysmal Interatrial septum. 7. Trace amount of aortic regurgitation. 8. There is trace mitral regurgitation. 9. Trace tricuspid regurgitation present. 10. There is no pericardial effusion. PERSONNEL TECHNICIAN: Rufina Kim RDCS
== END | disposition home or self-care (01) ==
LOC: RADECHMAIN 13:05
PROVIDERS: ATTEND Family Medicine
DX: Q21.1 Atrial septal defect (principal); I25.3 Aneurysm of heart; Z95.2 Presence of prosthetic heart valve
CPT/HCPCS: 93306

== ENCOUNTER 2020-02-08 14:42 | Emergency (ER) | payer MEDICARE, BC ==
[2020-02-08 15:01] VITALS: TEMP 98.5
[2020-02-08] MEDS ORDERED: HYDROmorphone 0.5 MG/0.5 ML SYRINGE IVP STA ×2 (15:18→17:08)
--- NOTE | 2020-02-08 15:23 | ED ---
General Adult HPI - General Chief complaint: Chest Pain Stated complaint: Leg Swelling/SOB/Left Hip Pain/Fall Time Seen by Provider: 02/08/20 15:04 Source: patient Mode of arrival: ambulatory Limitations: no limitations - History of Present Illness Initial comments: Dictation was produced using [employer] dictation software. please excuse any grammatical, word or spelling errors. This patient was cared for during a federal and state declared state of emergency secondary to Covid 19 Chief Complaint: 39-year-old female with past medical history of methamphetamine abuse, opiate use, chronic pain, neuropathy, diabetes since to the emergency department after being told by her primary care physician to come to the emergency department for Lasix. History of Present Illness: 39-year-old female she was told by her primary care physician come to the emergency department for Lasix to treat total body swelling. Patient states that over the last 4-5 days she has developed new onset total body swelling. She states worse in her legs however it feels like it's in her face arms chest and abdomen. Patient states she fell several days ago and is having severe sharp back pain. She is however been ambulatory. She states the main reason why she is in the emergency department for the total body swelling. She states she gained 30 pounds of water weight over the last week or so. She is told she had an abnormal EKG at the PCPs office and abnormal vital signs. Patient states that pain in her lower legs are so severe. She has never had history of heart failure. She does report shortness of breath. The ROS documented in this emergency department record has been reviewed and confirmed by me. Those systems with pertinent positive or negative responses have been documented in the HPI. All other systems are other negative and/or noncontributory. PHYSICAL EXAM: General Impression: Alert and oriented x3, hysterical HEENT: Normocephalic atraumatic, extra-ocular movements intact, pupils equal and reactive to light bilaterally, mucous membranes moist. Cardiovascular: Heart regular rate and rhythm Chest: Able to complete full sentences, no retractions, no tachypnea Abdomen: abdomen soft, non-tender, non-distended, no organomegaly Musculoskeletal: Pulses present and equal in all extremities, 3+ pitting edema to the lower extremities, pitting edema is not appreciated in upper extremities or face. Motor: no focal deficits noted Neurological: CN II-XII grossly intact, no focal motor or sensory deficits noted Skin: Intact with no visualized rashes Psych: Anxious, tearful ED course:39-year-old female presents to the emergency department after being redirected here from PCPs office for Lasix treatment. As upon arrival shows heart rate of 117, worse vital signs within acceptable limits. Patient is very anxious at bedside. She starts crying when I press on her legs to measure pitting edema. She has history of chronic pain and neuropathy for which she takes ibuprofen and gabapentin. Chest x-ray and spinal x-ray unremarkable. Labs are unremarkable. Patient given Lasix. Urine studies are unremarkable. Laboratory results and imaging results were discussed with patient. She is agreeable for discharge. She is advised to follow-up with her primary care physician for outpatient management of her symptoms. EKG interpretation: Ventricular rate 105, sinus tachycardia,. Interval 142, QRS 82, QTC 481. No AR prolongation, no QTC prolongation, no ST or T-wave changes noted. EKG compared to 05/05/2015 showing no changes. Overall, this EKG is unremarkable - Related Data Home Medications Medication Instructions Recorded Confirmed Albuterol Sulfate [Proair Hfa] 2 puff INHALATION RT-QID PRN 02/08/20 02/08/20 Atorvastatin [Lipitor] 20 mg PO DAILY 02/08/20 02/08/20 Buprenorphine HCl/Naloxone HCl 1 film SL TID 02/08/20 02/08/20 [Suboxone 8 mg-2 mg Sl Film] Doxepin HCl 50 mg PO HS 02/08/20 02/08/20 Gabapentin 1,200 mg PO TID 02/08/20 02/08/20 Levothyroxine Sodium [Synthroid] 75 mcg PO DAILY 02/08/20 02/08/20 Metoprolol Tartrate [Lopressor] 50 mg PO AC-BID 02/08/20 02/08/20 OLANZapine [ZyPREXA] 10 mg PO DAILY 02/08/20 02/08/20 Pantoprazole Sodium [Protonix] 40 mg PO DAILY 02/08/20 02/08/20 Prazosin [Minipress] 5 mg PO HS 02/08/20 02/08/20 Rizatriptan Odt [Maxalt [employer]] 10 mg PO BID PRN 02/08/20 02/08/20 Topiramate [Topamax] 200 mg PO BID 02/08/20 02/08/20 guanFACINE HCL [guanFACINE HCL ER] 2 mg PO DAILY 02/08/20 02/08/20 hydrOXYzine HCL [Atarax] 100 mg PO Q6H PRN 02/08/20 02/08/20 metFORMIN HCL [Glucophage] 500 mg PO BID 02/08/20 02/08/20 tiZANidine HCL [Zanaflex] 4 mg PO Q6H 02/08/20 02/08/20 Allergies Allergy/AdvReac Type Severity Reaction Status Date / Time lamotrigine [From Lamictal] Allergy Unknown Verified 02/08/20 17:12 ondansetron HCl Allergy Anaphylaxis Verified 02/08/20 17:12 [From Zofran (as hydrochloride)] prochlorperazine Allergy Anaphylaxis Verified 02/08/20 17:12 [From Compazine] terbutaline sulfate Allergy Anaphylaxis Verified 02/08/20 17:12 [From Brethine] magnesium sulfate Allergy Anaphylaxis Uncoded 02/08/20 15:01 Review of Systems ROS Statement: Those systems with pertinent positive or pertinent negative responses have been documented in the HPI. ROS Other: All systems not noted in ROS Statement are negative. Past Medical History Past Medical History: Osteoarthritis (OA) History of Any Multi-Drug Resistant Organisms: None Reported Past Surgical History: Appendectomy, Cholecystectomy, Hysterectomy, Orthopedic Surgery Additional Past Surgical History / Comment(s): chronic back pain herniated discs Past Psychological History: No Psychological Hx Reported Past Alcohol Use History: Occasional Past Drug Use History: Methamphetamine, Opiates General Exam Limitations: no limitations Course Vital Signs 02/08/20 02/08/20 02/08/20 14:56 15:57 17:04 Temperature 98.5 F Pulse Rate 117 H 98 96 Respiratory 20 16 18 Rate Blood Pressure 130/84 119/68 113/65 O2 Sat by Pulse 98 98 95 Oximetry Medical Decision Making - Lab Data Result diagrams: 02/08/20 15:10 02/08/20 15:10 Lab Results 02/08/20 02/08/20 02/08/20 Range/Units 15:10 15:10 15:10 WBC 9.7 (3.8-10.6) k/uL RBC 4.22 (3.80-5.40) m/uL Hgb 12.3 (11.4-16.0) gm/dL Hct 35.6 (34.0-46.0) % MCV 84.3 (80.0-100.0) fL MCH 29.2 (25.0-35.0) pg MCHC 34.6 (31.0-37.0) g/dL RDW 13.7 (11.5-15.5) % Plt Count 252 (150-450) k/uL MPV 6.9 Neutrophils % 55 % Lymphocytes % 32 % Monocytes % 5 % Eosinophils % 5 % Basophils % 1 % Neutrophils # 5.3 (1.3-7.7) k/uL Lymphocytes # 3.1 (1.0-4.8) k/uL Monocytes # 0.5 (0-1.0) k/uL Eosinophils # 0.5 (0-0.7) k/uL Basophils # 0.1 (0-0.2) k/uL PT 10.2 (9.0-12.0) sec INR 1.0 (<1.2) APTT 25.1 (22.0-30.0) sec Sodium 137 (137-145) mmol/L Potassium 3.9 (3.5-5.1) mmol/L Chloride 106 (98-107) mmol/L Carbon Dioxide 24 (22-30) mmol/L Anion Gap 7 mmol/L BUN 14 (7-17) mg/dL Creatinine 0.69 (0.52-1.04) mg/dL Est GFR (CKD-EPI)AfAm >90 (>60 ml/min/1.73 sqM) Est GFR (CKD-EPI)NonAf >90 (>60 ml/min/1.73 sqM) Glucose 114 H (74-99) mg/dL Plasma Lactic Acid Mitchel (0.7-2.0) mmol/L Calcium 9.8 (8.4-10.2) mg/dL Magnesium 1.6 (1.6-2.3) mg/dL Total Bilirubin 0.4 (0.2-1.3) mg/dL AST 21 (14-36) U/L ALT 19 (4-34) U/L Alkaline Phosphatase 83 (38-126) U/L Troponin I (0.000-0.034) ng/mL NT-Pro-B Natriuret Pep pg/mL Total Protein 7.2 (6.3-8.2) g/dL Albumin 4.4 (3.5-5.0) g/dL Lipase 52 (23-300) U/L Urine Color Urine Appearance (Clear) Urine pH (5.0-8.0) Ur Specific [place] (1.001-1.035) Urine Protein (Negative) Urine Glucose (UA) (Negative) Urine Ketones (Negative) Urine Blood (Negative) Urine Nitrite (Negative) Urine Bilirubin (Negative) Urine Urobilinogen (<2.0) mg/dL Ur Leukocyte Esterase (Negative) Urine Opiates Screen (NotDetected) Ur Oxycodone Screen (NotDetected) Urine Methadone Screen (NotDetected) Ur Propoxyphene Screen (NotDetected) Ur Barbiturates Screen (NotDetected) U Tricyclic Antidepress (NotDetected) Ur Phencyclidine Scrn (NotDetected) Ur Amphetamines Screen (NotDetected) U Methamphetamines Scrn (NotDetected) U Benzodiazepines Scrn (NotDetected) Urine Cocaine Screen (NotDetected) U Marijuana (THC) Screen (NotDetected) 02/08/20 02/08/20 02/08/20 Range/Units 15:10 15:10 15:27 WBC (3.8-10.6) k/uL RBC (3.80-5.40) m/uL Hgb (11.4-16.0) gm/dL Hct (34.0-46.0) % MCV (80.0-100.0) fL MCH (25.0-35.0) pg MCHC (31.0-37.0) g/dL RDW (11.5-15.5) % Plt Count (150-450) k/uL MPV Neutrophils % % Lymphocytes % % Monocytes % % Eosinophils % % Basophils % % Neutrophils # (1.3-7.7) k/uL Lymphocytes # (1.0-4.8) k/uL Monocytes # (0-1.0) k/uL Eosinophils # (0-0.7) k/uL Basophils # (0-0.2) k/uL PT (9.0-12.0) sec INR (<1.2) APTT (22.0-30.0) sec Sodium (137-145) mmol/L Potassium (3.5-5.1) mmol/L Chloride (98-107) mmol/L Carbon Dioxide (22-30) mmol/L Anion Gap mmol/L BUN (7-17) mg/dL Creatinine (0.52-1.04) mg/dL Est GFR (CKD-EPI)AfAm (>60 ml/min/1.73 sqM) Est GFR (CKD-EPI)NonAf (>60 ml/min/1.73 sqM) Glucose (74-99) mg/dL Plasma Lactic Acid Mitchel 1.8 (0.7-2.0) mmol/L Calcium (8.4-10.2) mg/dL Magnesium (1.6-2.3) mg/dL Total Bilirubin (0.2-1.3) mg/dL AST (14-36) U/L ALT (4-34) U/L Alkaline Phosphatase (38-126) U/L Troponin I <0.012 (0.000-0.034) ng/mL NT-Pro-B Natriuret Pep 90 pg/mL Total Protein (6.3-8.2) g/dL Albumin (3.5-5.0) g/dL Lipase (23-300) U/L Urine Color Urine Appearance (Clear) Urine pH (5.0-8.0) Ur Specific [place] (1.001-1.035) Urine Protein (Negative) Urine Glucose (UA) (Negative) Urine Ketones (Negative) Urine Blood (Negative) Urine Nitrite (Negative) Urine Bilirubin (Negative) Urine Urobilinogen (<2.0) mg/dL Ur Leukocyte Esterase (Negative) Urine Opiates Screen (NotDetected) Ur Oxycodone Screen (NotDetected) Urine Methadone Screen (NotDetected) Ur Propoxyphene Screen (NotDetected) Ur Barbiturates Screen (NotDetected) U Tricyclic Antidepress (NotDetected) Ur Phencyclidine Scrn (NotDetected) Ur Amphetamines Screen (NotDetected) U Methamphetamines Scrn (NotDetected) U Benzodiazepines Scrn (NotDetected) Urine Cocaine Screen (NotDetected) U Marijuana (THC) Screen (NotDetected) 02/08/20 02/08/20 Range/Units 17:55 17:55 WBC (3.8-10.6) k/uL RBC (3.80-5.40) m/uL Hgb (11.4-16.0) gm/dL Hct (34.0-46.0) % MCV (80.0-100.0) fL MCH (25.0-35.0) pg MCHC (31.0-37.0) g/dL RDW (11.5-15.5) % Plt Count (150-450) k/uL MPV Neutrophils % % Lymphocytes % % Monocytes % % Eosinophils % % Basophils % % Neutrophils # (1.3-7.7) k/uL Lymphocytes # (1.0-4.8) k/uL Monocytes # (0-1.0) k/uL Eosinophils # (0-0.7) k/uL Basophils # (0-0.2) k/uL PT (9.0-12.0) sec INR (<1.2) APTT (22.0-30.0) sec Sodium (137-145) mmol/L Potassium (3.5-5.1) mmol/L Chloride (98-107) mmol/L Carbon Dioxide (22-30) mmol/L Anion Gap mmol/L BUN (7-17) mg/dL Creatinine (0.52-1.04) mg/dL Est GFR (CKD-EPI)AfAm (>60 ml/min/1.73 sqM) Est GFR (CKD-EPI)NonAf (>60 ml/min/1.73 sqM) Glucose (74-99) mg/dL Plasma Lactic Acid Mitchel (0.7-2.0) mmol/L Calcium (8.4-10.2) mg/dL Magnesium (1.6-2.3) mg/dL Total Bilirubin (0.2-1.3) mg/dL AST (14-36) U/L ALT (4-34) U/L Alkaline Phosphatase (38-126) U/L Troponin I (0.000-0.034) ng/mL NT-Pro-B Natriuret Pep pg/mL Total Protein (6.3-8.2) g/dL Albumin (3.5-5.0) g/dL Lipase (23-300) U/L Urine Color Colorless Urine Appearance Clear (Clear) Urine pH 5.0 (5.0-8.0) Ur Specific [place] 1.006 (1.001-1.035) Urine Protein Negative (Negative) Urine Glucose (UA) Negative (Negative) Urine Ketones Negative (Negative) Urine Blood Negative (Negative) Urine Nitrite Negative (Negative) Urine Bilirubin Negative (Negative) Urine Urobilinogen <2.0 (<2.0) mg/dL Ur Leukocyte Esterase Negative (Negative) Urine Opiates Screen Not Detected (NotDetected) Ur Oxycodone Screen Not Detected (NotDetected) Urine Methadone Screen Not Detected (NotDetected) Ur Propoxyphene Screen Not Detected (NotDetected) Ur Barbiturates Screen Not Detected (NotDetected) U Tricyclic Antidepress Detected H (NotDetected) Ur Phencyclidine Scrn Not Detected (NotDetected) Ur Amphetamines Screen Not Detected (NotDetected) U Methamphetamines Scrn Not Detected (NotDetected) U Benzodiazepines Scrn Not Detected (NotDetected) Urine Cocaine Screen Not Detected (NotDetected) U Marijuana (THC) Screen Not Detected (NotDetected) Disposition Clinical Impression: Leg swelling Disposition: HOME SELF-CARE Condition: Good Instructions (If sedation given, give patient instructions): Leg Edema (ED) Is patient prescribed a controlled substance at d/c from ED?: No Referrals: Tom Anguiano MD [Primary Care Provider] - 1-2 days Time of Disposition: 18:20
[2020-02-08 15:34] LABS: Basophils # (A) 0.1 k/uL (0-0.2); Basophils % (A) 1 %; Eosinophils # (A) 0.5 k/uL (0-0.7); Eosinophils % (A) 5 %; HCT 35.6 % (34.0-46.0); HGB 12.3 gm/dL (11.4-16.0); Lymphocytes # (A) 3.1 k/uL (1.0-4.8); Lymphocytes % (A) 32 %; MCH 29.2 pg (25.0-35.0); MCHC 34.6 g/dL (31.0-37.0); MCV 84.3 fL (80.0-100.0); Mean Platelet Volume 6.9; Monocytes # (A) 0.5 k/uL (0-1.0); Monocytes % (A) 5 %; Neutrophils # (A) 5.3 k/uL (1.3-7.7); Neutrophils % (A) 55 %; Platelet Count 252 k/uL (150-450); RBC 4.22 m/uL (3.80-5.40); RDW 13.7 % (11.5-15.5); WBC 9.7 k/uL (3.8-10.6)
[2020-02-08 15:47] LABS: Partial Thromboplastin Time 25.1 sec (22.0-30.0); Prothrombin Time 10.2 sec (9.0-12.0)
[2020-02-08 15:49] LABS: ALT 19 U/L (4-34); AST 21 U/L (14-36); African American GFR (CKD) >90 (>60 ml/min/1.73 sqM); Albumin 4.4 g/dL (3.5-5.0); Alkaline Phosphatase 83 U/L (38-126); Anion Gap 7 mmol/L; Blood Urea Nitrogen 14 mg/dL (7-17); Calcium 9.8 mg/dL (8.4-10.2); Carbon Dioxide 24 mmol/L (22-30); Chloride 106 mmol/L (98-107); Glucose 114 mg/dL (74-99); Lipase 52 U/L (23-300); Magnesium 1.6 mg/dL (1.6-2.3); Non-African American GFR(CKD) >90 (>60 ml/min/1.73 sqM); Potassium 3.9 mmol/L (3.5-5.1); Sodium 137 mmol/L (137-145); Total Bilirubin 0.4 mg/dL (0.2-1.3); Total Protein 7.2 g/dL (6.3-8.2)
[2020-02-08] MEDS ORDERED: FUROSEMIDE 10 MG/ML 4 ML VIAL IV STA (16:42)
--- NOTE | 2020-02-08 16:47 | XR ---
EXAMINATION TYPE: XR spine complete AP and Lat DATE OF EXAM: 02/08/2020 COMPARISON: NONE HISTORY: Neck pain. Back pain TECHNIQUE: 9 views FINDINGS: Thoracic cervical and lumbar vertebra show no compression fracture. There is a mild degener ative first-degree L4-5 spondylolisthesis. There is no significant disc space narrowing. There is no evidence of focal bone destruction. There is no thoracic paraspinal mass. Atlantoaxial facet joint is normal. There are no cervical ribs. There is degenerative hypertrophic anterior spurring at C5-6 and C6-7. IMPRESSION: Spondylotic changes in the lower cervical spine and lower lumbar spine with a degenerativ e L4-5 mild spondylolisthesis. No acute fracture seen.
[2020-02-08 17:06] VITALS: BP 113/65; PULSE 96; RESP 18
--- NOTE | 2020-02-08 17:08 | XR ---
EXAMINATION TYPE: XR chest 2V DATE OF EXAM: 02/08/2020 COMPARISON: 05/05/2015 HISTORY: Abnormal cardiogram TECHNIQUE: 2 views FINDINGS: Heart and mediastinum are normal. Lungs are clear. Diaphragm is normal. Bony thorax appears normal. IMPRESSION: Normal chest. No change.
[2020-02-08 18:02] LABS: Appearance,Urine Clear (Clear); Bilirubin,Urine Negative (Negative); Blood,Urine Negative (Negative); Color,Urine Colorless; Glucose,Urine (UA) Negative (Negative); Ketones,Urine Negative (Negative); Leukocyte Esterase,Urine Negative (Negative); Nitrite,Urine Negative (Negative); Protein,Urine Negative (Negative); Specific Gravity,Urine 1.006 (1.001-1.035); Urobilinogen,Urine <2.0 mg/dL (<2.0)
[2020-02-08 18:10] LABS: Amphetamine Screen,Urine Not Detected (NotDetected); Barbiturate Screen,Urine Not Detected (NotDetected); Benzodiazepines Screen,Urine Not Detected (NotDetected); Cocaine Screen,Urine Not Detected (NotDetected); Methadone Screen, Urine Not Detected (NotDetected); Opiate Screen,Urine Not Detected (NotDetected); Oxycodone Screen, Urine Not Detected (NotDetected); Phencyclidine Screen,Urine Not Detected (NotDetected); Tricyclic Antidepressant,Urine Detected (NotDetected); Urn Cannabinoid Scrn Not Detected (NotDetected)
== END 2020-02-08 18:40 | disposition home or self-care (01) ==
LOC: EC 14:42
DX: M79.89 Other specified soft tissue disorders (principal); R00.0 Tachycardia, unspecified; E11.40 Type 2 diabetes mellitus with diabetic neuropathy, unspecified; G89.29 Other chronic pain; M54.9 Dorsalgia, unspecified; Z79.899 Other long term (current) drug therapy; Z79.890 Hormone replacement therapy; Z79.84 Long term (current) use of oral hypoglycemic drugs; Z88.8 Allergy status to other drugs, medicaments and biological substances; Z88.5 Allergy status to narcotic agent
CPT/HCPCS: 36415; 93005; 83880; 80053; 83605; 83690; 83735; 84484; 85025; 85610; 85730; 81003; 80306; 72082; 71046; 99285; J1940; J1170

== ENCOUNTER → 2020-04-15 | Outpatient (CLI) | payer MEDICARE, BC ==
--- NOTE | 2020-04-15 16:01 | CT ---
EXAMINATION TYPE: CT abdomen pelvis wo con DATE OF EXAM: 04/15/2020 HISTORY: lower abdominal pain, loss of bladder control. CT DLP: 1061 mGycm. Automated Exposure Control for Dose Reduction was Utilized. TECHNIQUE: CT scan of the abdomen and pelvis is performed without oral or IV contrast. COMPARISON: CT May 12, 2014 FINDINGS: Within the limitations of a non-contrast study, the following observations are made. LUNG BASES: Focal linear scarring or atelectasis in the lingula axial image 4.. LIVER/GB: Stable hepatomegaly with heterogeneous hypodense appearance of liver consistent with diffus e fatty infiltration. Cholecystectomy clips redemonstrated. PANCREAS: No significant abnormality is seen. SPLEEN: Stable 1.4 cm splenule axial image 39. ADRENALS: No significant abnormality is seen. KIDNEYS: No renal stones or hydronephrosis seen bilaterally. Poor distention of bladder makes evaluat ion suboptimal. Nondistended focus of the rectum is 139 BOWEL: Suboptimal evaluation bowel without enteric contrast. Mild wall thickening sigmoid rectal colo n is present near site of mild fluid and fat stranding. No suspicious small or large bowel dilatation . GENITAL ORGANS: Uterus surgically absent. Trace free fluid in pelvis with phleboliths axial image 136 LYMPH NODES: No greater than 1cm abdominal or pelvic lymph nodes are appreciated. OSSEOUS STRUCTURES: Grade 1 anterolisthesis L4 and L5 redemonstrated. Prominent facet arthropathy low er lumbar levels. Some ossific fusion of the posterior elements is now present lower lumbar spine. Fi ndings prominent for patient's chronologic age. OTHER: No significant additional abnormality is seen. IMPRESSION: Small focus of nondependent air in the poorly distended bladder. Correlate clinically for recent catheterization otherwise other etiologies such as fistula needs to be considered as there is mild fluid and fat stranding in the pelvis at site of hysterectomy. Mild to moderate adjacent wall t hickening in the sigmoid rectal colon raises concern for acute uncomplicated colitis. Correlate clini koko. Differential includes infectious and/or inflammatory etiologies. Ulcerative colitis is in diff erential for patient of this age.
== END | disposition home or self-care (01) ==
LOC: RADCTMAIN 15:19
PROVIDERS: ATTEND Family Medicine
DX: N32.89 Other specified disorders of bladder (principal); R93.3 Abnormal findings on diagnostic imaging of other parts of digestive tract
CPT/HCPCS: 74176

== ENCOUNTER → 2020-08-16 | Outpatient (CLI) | payer MEDICARE, BC ==
--- NOTE | 2020-08-20 12:29 | MM ---
Reason for exam: screening (asymptomatic). Last mammogram was performed 1 year and 5 months ago. History: Patient is postmenopausal. Took hormonal contraceptives for 2 years. Took estrogen for 1 year beginning at age 24. Physical Findings: A clinical breast exam by your physician is recommended on an annual basis and results should be correlated with mammographic findings. MG 3D Screening Mammo W/Cad Bilateral CC and MLO view(s) were taken. Prior study comparison: March 20, 2019, bilateral MG 3d diag mammo w/cad KEITH. There are scattered fibroglandular densities. Right XCCL is 3D only. ASSESSMENT: Incomplete: need additional imaging evaluation, BI-RAD 0 RECOMMENDATION: Ultrasound of the left breast. (for pain and swelling) [facility] will attempt to contact patient to return for ultrasound.
== END | disposition home or self-care (01) ==
LOC: RADMAMWWP 11:27
PROVIDERS: ATTEND Family Medicine
DX: Z12.31 Encounter for screening mammogram for malignant neoplasm of breast (principal); Z78.0 Asymptomatic menopausal state; Z79.3 Long term (current) use of hormonal contraceptives
CPT/HCPCS: 77063; 77067

== ENCOUNTER → 2020-08-23 | Outpatient (CLI) | payer MEDICARE, BC ==
--- NOTE | 2020-08-23 14:20 | USB ---
EXAMINATION TYPE: US breast workup limited LT DATE OF EXAM: 08/23/2020 COMPARISON: Screening mammogram 08/16/2020 CLINICAL HISTORY: R92.8 abnormal mammogram. Findings: The left breast was scanned with ultrasound from 1:00 to 10:00 and in the axillary tail and retroareo lar regions. A normal-appearing lymph node is noted in the left axillary tail. There is no sonographic correlate with the left breast pain. Clinical follow-up is recommended. IMPRESSION: Clinical follow-up is recommended for left breast pain and reported scab. BI-RADS 2, benign. Screening mammogram is recommended in one year.
== END | disposition home or self-care (01) ==
LOC: RADUSWWP 13:36
PROVIDERS: ATTEND Family Medicine
DX: R92.8 Other abnormal and inconclusive findings on diagnostic imaging of breast (principal)

== ENCOUNTER 2020-09-04 09:34 | Day surgery (SDC) | payer MEDICARE, BC ==
[2020-09-02 15:18] VITALS: BMI 35.0
[~2020-09-04 09:34] MED LIST: LACTATED RINGERS 1,000 ML IV SCH; LIDOCAINE 1% (10MG/ML) FOR IV START INTRADERMA PRN
[2020-09-04 09:50] VITALS: TEMP 97
[2020-09-04] MEDS ORDERED: PROPOFOL 10 MG/ML 20 ML VIAL IV ONE (10:16)
[2020-09-04] MEDS ORDERED: IV FLUID CONTINUATION 1,000 ML IV ONE (10:30)
--- NOTE | 2020-09-04 10:36 | P.PCN ---
Date of Procedure: 09/04/20 Procedure(s) Performed: BRIEF HISTORY: Patient is a 40-year-old pleasant white female scheduled for an elective colonoscopy as a part of lower abdominal pain and diarrhea for the last 2 months duration. She has 4-5 loose watery bowel movements daily with occasional blood in the stool. PROCEDURE PERFORMED: Colonoscopy with biopsy. PREOPERATIVE DIAGNOSIS: Chronic diarrhea and lower abdominal. IV sedation per Anesthesia. PROCEDURE: After informed consent was obtained, the patient, was brought into [facility] endoscopy unit. IV sedation was administered by Anesthesia under continuous monitoring. Digital rectal examination was normal. Initially the Olympus CF-160 flexible video colonoscope was then inserted in the rectum, gradually advanced into the cecum without any difficulty. Careful examination was performed as the scope was gradually being withdrawn. Ileocecal valve and the appendiceal orifice were visualized and appeared normal. Prep was excellent. Mucosa of the cecum, ascending colon, transverse colon, descending colon, sigmoid colon, and rectum appeared normal. In the sigmoid: There was a 3 mm polyp that was removed by cold biopsy. Random biopsies were done from ascending and descending colon to rule out metastatic/collagenous colitis. Retroflexion was performed in the rectum and no lesions were seen. The patient tolerated the procedure well. IMPRESSION: Normal-appearing colon from rectum to cecum with no evidence of colitis. 3 mm sigmoid polyp status post biopsy . RECOMMENDATIONS: Findings of this examination were discussed with the patient as a family. She was advised to follow with the biopsy results. She can have a repeat colonoscopy in 5-10 years from now based the biopsy.
[2020-09-04 12:00] VITALS: BP 112/76; PULSE 90; RESP 20
== END 2020-09-04 11:15 | disposition home or self-care (01) ==
LOC: ORWHC2ENDO 09:34
PROVIDERS: ATTEND Internal Medicine Gastroenterology
DX: R19.7 Diarrhea, unspecified (principal); K63.5 Polyp of colon; F17.210 Nicotine dependence, cigarettes, uncomplicated; J44.9 Chronic obstructive pulmonary disease, unspecified; F41.9 Anxiety disorder, unspecified; F32.9 Major depressive disorder, single episode, unspecified; Z88.8 Allergy status to other drugs, medicaments and biological substances; Z79.899 Other long term (current) drug therapy
CPT/HCPCS: 45380; J2704; 88305

== ENCOUNTER → 2020-12-13 | Outpatient (CLI) | payer MEDICARE, BC ==
--- NOTE | 2020-12-13 14:04 | US ---
EXAMINATION TYPE: US kidneys/renal and bladder DATE OF EXAM: 12/13/2020 COMPARISON: CT 2020 CLINICAL HISTORY: R10.9 Flank pain. Intermittent bilateral flank pain x couple months EXAM MEASUREMENTS: Right Kidney: 12.0 x 6.7 x 4.5 cm Left Kidney: 11.4 x 5.0 x 5.3 cm Difficult and limited study due to patient body habitus Right Kidney: No hydronephrosis or masses seen Left Kidney: No hydronephrosis or masses seen Bladder: wnl Bilateral Jets seen: yes IMPRESSION: 1. Normal renal ultrasound
== END | disposition home or self-care (01) ==
LOC: RADUSWWP 13:30
PROVIDERS: ATTEND Urology
DX: R10.9 Unspecified abdominal pain (principal)
CPT/HCPCS: 76770

== ENCOUNTER 2021-02-18 15:27 | Inpatient (IN) | payer MEDICARE, BC ==
[2021-02-18] MEDS ORDERED: HEPARIN SODIUM 1,000 UN/ML (10ML VL) IV ONE (16:42)
[2021-02-18] MEDS ORDERED: HEPARIN SODIUM 1,000 UN/ML (10ML VL) IV PRN (16:42)
--- NOTE | 2021-02-18 17:19 | ED ---
General Adult HPI - General Chief complaint: Shortness of Breath Stated complaint: Abdormal CT Time Seen by Provider: 02/18/21 16:41 Source: family Mode of arrival: ambulatory Limitations: no limitations - History of Present Illness Initial comments: Dictation was produced using [employer] dictation software. please excuse any grammatical, word or spelling errors. Chief Complaint: 40-year-old feel presents with outpatient CT positive for bilateral pulmonary emboli History of Present Illness: Is a 40-year-old female she was admitted to the hospital for 11 days last month for complications secondary to COVID-19. She was discharged with supplemental oxygen. She states she's she's been recovering since being discharged per she states she's been doing fine except until the last 3-4 day she felt like her shortness of breath has been getting worse. She had a follow-up appointment with her lung doctor who ordered a computed tomogr aphy scan of the chest looking for pulmonary emboli. She had a CT angios performed earlier today that showed acute bilateral pulmonary embolism. Patient denies any history of DVTs or PEs. She denies any lower extremity swelling or tenderness. Patient has history of hysterectomy. She does not take any medications. She states she is healthy besides all the issues secondary to virus. She denies any blood disorders. She has not had issues with bleeding. The ROS documented in this emergency department record has been reviewed and confirmed by me. Those systems with pertinent positive or negative responses have been documented in the HPI. All other systems are other negative and/or noncontributory. PHYSICAL EXAM: General Impression: Alert and oriented x3, not in acute distress HEENT: Normocephalic atraumatic, extra-ocular movements intact, pupils equal and reactive to light bilaterally, mucous membranes moist. Cardiovascular: Heart regular rate and rhythm Chest: Able to complete full sentences, no retractions, no tachypnea, lungs clear to auscultation bilaterally Abdomen: abdomen soft, non-tender, non-distended, no organomegaly Musculoskeletal: Pulses present and equal in all extremities, no peripheral edema Motor: no focal deficits noted Neurological: CN II-XII grossly intact, no focal motor or sensory deficits noted Skin: Intact with no visualized rashes Psych: Normal affect and mood ED course: 40-year-old female presents to the emergency Department for outpatient CT showing acute bilateral pulmonary emboli. vital signs upon arrival shows heart rate 115, rest of vital signs within acceptable limits. She is normotensive and not hypoxic on her baseline supplemental oxygen. Patient's well-appearing at the bedside. This is likely secondary to complication from Covid. She has never had a history of PE or DVTs for she's not having lower extremity symptoms. EKG interpretation: Ventricular rate 100, normal sinus rhythm, AK interval 134, QRS 82, QTc 469. No AK prolongation, no QTC prolongation. There is a isolated ST depression in V3 there is benign early repolarization. EKG compared to EKG from February 07 and is comparable. Laboratory evaluation obtained. CBC unremarkable. Coag is negative. Metabolic panel is normal. Negative cardiac labs. Coronal virus test is negative. Patient started on heparin. She will be admitted to the hospital with consultation to pulmonology. - Related Data Home Medications Medication Instructions Recorded Confirmed Albuterol Sulfate [Proair Hfa] 2 puff INHALATION RT-QID PRN 02/08/20 02/18/21 Atorvastatin [Lipitor] 20 mg PO DAILY 02/08/20 02/18/21 Buprenorphine HCl/Naloxone HCl 1 film SL TID 02/08/20 02/18/21 [Suboxone 8 mg-2 mg Sl Film] Doxepin HCl 50 mg PO HS 02/08/20 02/18/21 Gabapentin 1,200 mg PO TID 02/08/20 02/18/21 Levothyroxine Sodium [Synthroid] 75 mcg PO DAILY 02/08/20 02/18/21 OLANZapine [ZyPREXA] 10 mg PO DAILY 02/08/20 02/18/21 Pantoprazole Sodium [Protonix] 40 mg PO DAILY 02/08/20 02/18/21 Rizatriptan Odt [Maxalt Wood Box Maker] 10 mg PO BID PRN 02/08/20 02/18/21 Topiramate [Topamax] 200 mg PO BID 02/08/20 02/18/21 Phentermine HCl [Adipex-P] 37.5 mg PO DAILY 09/02/20 02/18/21 Albuterol Nebulized [Ventolin 2.5 mg INHALATION RT-TID PRN 02/18/21 02/18/21 Nebulized] Ascorbic Acid [Vitamin C] 500 mg PO DAILY 02/18/21 02/18/21 Cholecalciferol [Vitamin D3 (25 25 mcg PO DAILY 02/18/21 02/18/21 Mcg = 1000 Iu)] Dapagliflozin Propanediol [Farxiga] 10 mg PO DAILY 02/18/21 02/18/21 Dicyclomine HCl 20 mg PO QID 02/18/21 02/18/21 Ergocalciferol (Vitamin D2) 1,250 mcg PO DIRECTED 02/18/21 02/18/21 [Drisdol (50,000 Iu)] Linaclotide [Linzess] 145 mcg PO DAILY 02/18/21 02/18/21 Montelukast [Singulair] 10 mg PO HS 02/18/21 02/18/21 Rivaroxaban [Xarelto] 2.5 mg PO BID 02/18/21 02/18/21 Solifenacin Succinate 5 mg PO DAILY 02/18/21 02/18/21 Zinc 50 mg PO DAILY 02/18/21 02/18/21 busPIRone HCl [Buspar] 10 mg PO TID 02/18/21 02/18/21 Allergies Allergy/AdvReac Type Severity Reaction Status Date / Time lamotrigine [From Lamictal] Allergy tachycardia Verified 02/18/21 17:31 ,rash morphine Allergy Hallucinati Verified 02/18/21 17:31 ons ondansetron HCl Allergy Anaphylaxis Verified 02/18/21 17:31 [From Zofran (as hydrochloride)] prochlorperazine Allergy Anaphylaxis Verified 02/18/21 17:31 [From Compazine] terbutaline sulfate Allergy Anaphylaxis Verified 02/18/21 17:31 [From Brethine] magnesium sulfate Allergy Anaphylaxis Uncoded 09/04/20 09:56 Review of Systems ROS Statement: Those systems with pertinent positive or pertinent negative responses have been documented in the HPI. ROS Other: All systems not noted in ROS Statement are negative. Past Medical History Past Medical History: Osteoarthritis (OA) Additional Past Medical History / Comment(s): Covid + January 2021 History of Any Multi-Drug Resistant Organisms: None Reported Past Surgical History: Appendectomy, Cholecystectomy, Hysterectomy, Orthopedic Surgery Additional Past Surgical History / Comment(s): chronic back pain herniated discs Past Psychological History: Anxiety, Bipolar Smoking Status: Former smoker Past Alcohol Use History: Occasional Past Drug Use History: None Reported General Exam Limitations: no limitations Course Vital Signs 02/18/21 02/18/21 02/18/21 16:25 17:42 17:43 Temperature 97.1 F L 98.1 F Pulse Rate 115 H 115 H Respiratory 19 16 18 Rate Blood Pressure 163/107 117/79 O2 Sat by Pulse 98 97 Oximetry 02/18/21 18:45 Temperature Pulse Rate 105 H Respiratory 18 Rate Blood Pressure 116/79 O2 Sat by Pulse 97 Oximetry Medical Decision Making - Lab Data Result diagrams: 02/18/21 18:14 02/18/21 18:14 Lab Results 02/18/21 02/18/21 02/18/21 Range/Units 18:14 18:14 18:14 WBC 8.0 (3.8-10.6) k/uL RBC 4.00 (3.80-5.40) m/uL Hgb 12.0 (11.4-16.0) gm/dL Hct 35.4 (34.0-46.0) % MCV 88.4 (80.0-100.0) fL MCH 30.0 (25.0-35.0) pg MCHC 33.9 (31.0-37.0) g/dL RDW 15.3 (11.5-15.5) % Plt Count 192 (150-450) k/uL MPV 8.6 Neutrophils % 52 % Lymphocytes % 35 % Monocytes % 5 % Eosinophils % 6 % Basophils % 0 % Neutrophils # 4.2 (1.3-7.7) k/uL Lymphocytes # 2.8 (1.0-4.8) k/uL Monocytes # 0.4 (0-1.0) k/uL Eosinophils # 0.5 (0-0.7) k/uL Basophils # 0.0 (0-0.2) k/uL Hypochromasia Slight Poikilocytosis Slight PT 11.1 (9.0-12.0) sec INR 1.1 (<1.2) APTT 25.5 (22.0-30.0) sec Sodium 136 L (137-145) mmol/L Potassium 4.1 (3.5-5.1) mmol/L Chloride 102 (98-107) mmol/L Carbon Dioxide 24 (22-30) mmol/L Anion Gap 10 mmol/L BUN 6 L (7-17) mg/dL Creatinine 0.53 (0.52-1.04) mg/dL Est GFR (CKD-EPI)AfAm >90 (>60 ml/min/1.73 sqM) Est GFR (CKD-EPI)NonAf >90 (>60 ml/min/1.73 sqM) Glucose 185 H (74-99) mg/dL Calcium 9.4 (8.4-10.2) mg/dL Troponin I (0.000-0.034) ng/mL NT-Pro-B Natriuret Pep pg/mL Coronavirus (PCR) (Not Detectd) 02/18/21 02/18/21 02/18/21 Range/Units 18:14 18:14 18:14 WBC (3.8-10.6) k/uL RBC (3.80-5.40) m/uL Hgb (11.4-16.0) gm/dL Hct (34.0-46.0) % MCV (80.0-100.0) fL MCH (25.0-35.0) pg MCHC (31.0-37.0) g/dL RDW (11.5-15.5) % Plt Count (150-450) k/uL MPV Neutrophils % % Lymphocytes % % Monocytes % % Eosinophils % % Basophils % % Neutrophils # (1.3-7.7) k/uL Lymphocytes # (1.0-4.8) k/uL Monocytes # (0-1.0) k/uL Eosinophils # (0-0.7) k/uL Basophils # (0-0.2) k/uL Hypochromasia Poikilocytosis PT (9.0-12.0) sec INR (<1.2) APTT (22.0-30.0) sec Sodium (137-145) mmol/L Potassium (3.5-5.1) mmol/L Chloride (98-107) mmol/L Carbon Dioxide (22-30) mmol/L Anion Gap mmol/L BUN (7-17) mg/dL Creatinine (0.52-1.04) mg/dL Est GFR (CKD-EPI)AfAm (>60 ml/min/1.73 sqM) Est GFR (CKD-EPI)NonAf (>60 ml/min/1.73 sqM) Glucose (74-99) mg/dL Calcium (8.4-10.2) mg/dL Troponin I <0.012 (0.000-0.034) ng/mL NT-Pro-B Natriuret Pep 44 pg/mL Coronavirus (PCR) Not Detected (Not Detectd) Critical Care Time Critical Care Time: Yes Total Critical Care Time: 33 Disposition Clinical Impression: Pulmonary emboli Disposition: ADMITTED IP TO THIS HOSP Condition: Critical Referrals: Tom Anguiano MD [Primary Care Provider] - 1-2 days
[2021-02-18 18:36] LABS: African American GFR (CKD) >90 (>60 ml/min/1.73 sqM); Anion Gap 10 mmol/L; Blood Urea Nitrogen 6 mg/dL (7-17); Calcium 9.4 mg/dL (8.4-10.2); Carbon Dioxide 24 mmol/L (22-30); Chloride 102 mmol/L (98-107); Glucose 185 mg/dL (74-99); Non-African American GFR(CKD) >90 (>60 ml/min/1.73 sqM); Sodium 136 mmol/L (137-145)
[2021-02-18 18:39] LABS: Potassium 4.1 mmol/L (3.5-5.1)
[2021-02-18] MEDS: HEPARIN SOD,PORK IN 0.45% NACL 25,000 UNIT in 0.45% NACL 1 250ML.BAG IV SCH (18:43)
[2021-02-18 18:47] LABS: Basophils % (A) 0 %; Eosinophils # (A) 0.5 k/uL (0-0.7); Eosinophils % (A) 6 %; HCT 35.4 % (34.0-46.0); Hypochromasia Slight; Lymphocytes # (A) 2.8 k/uL (1.0-4.8); Lymphocytes % (A) 35 %; MCHC 33.9 g/dL (31.0-37.0); MCV 88.4 fL (80.0-100.0); Mean Platelet Volume 8.6; Monocytes # (A) 0.4 k/uL (0-1.0); Monocytes % (A) 5 %; Neutrophils # (A) 4.2 k/uL (1.3-7.7); Neutrophils % (A) 52 %; Platelet Count 192 k/uL (150-450); Poikilocytosis Slight; RDW 15.3 % (11.5-15.5)
[2021-02-18 19:07] LABS: INR 1.1 (<1.2); Partial Thromboplastin Time 25.5 sec (22.0-30.0); Prothrombin Time 11.1 sec (9.0-12.0)
[2021-02-18] MEDS ORDERED: NALOXONE 0.4 MG/ML 1 ML VIAL IV PRN (19:35)
[2021-02-18] MEDS ORDERED: ERGOCALCIFEROL 1,250 MCG (50,000 IU) CAPSULE PO SCH (21:15)
[2021-02-18] MEDS ORDERED: ALBUTEROL NEBULIZED 2.5 MG/3 ML INHALATION PRN (21:38)
--- NOTE | 2021-02-18 22:00 | P.HPIM ---
History of Present Illness H&P Date: 02/18/21 Chief Complaint: SOB 40-year-old female with diabetes mellitus, bipolar disorder, hyperlipidemia patient diagnosed with COVID Jan 24 when she was hospitalized untill Feb 04 discharged with low dose xarelto and supplemental oxygen 4 LPM , she has been doing well and slowly recovering , up until 4 days ago , when she started experiencing shortness of breath and worsening over the past few days despite using supplemental oxygen , she went to a follow up appointment with her lung doctor , who ordered CT of the lungs and diagnosed acute PE. otherwise , she denies any history of bleeding, or blood clots. she claims to have been compliant with her meds and xarelto (low dose at 2.5), she denies any leg swelling , but does report some new petechial rash rash on her left leg blood work unremarkable COVID test negative Review of Systems Pertinent positives as noted in HPI. All other systems were reviewed and are negative Past Medical History Past Medical History: Diabetes Mellitus, GERD/Reflux, Hyperlipidemia, Osteoarthritis (OA), Pneumonia (COVID 19) Additional Past Medical History / Comment(s): Covid + January 2021. Diabetes mellitus -. Hyperlipidemia -. Morbid obesity -. Bipolar disorder -. Mixed anxiety and depressive disorder. Drug dependence. Attention deficit hyperactivity disorder. Chronic pain syndrome. Allergic rhinitis. Asthma. Acute respiratory failure - Onset: 01/21/2021. Gastroesophageal reflux disease - Onset: 01/21/2021. Irritable bowel syndrome History of Any Multi-Drug Resistant Organisms: None Reported Past Surgical History: Appendectomy, Cholecystectomy, Hysterectomy, Orthopedic Surgery Additional Past Surgical History / Comment(s): chronic back pain herniated discs Past Psychological History: Anxiety, Bipolar Smoking Status: Former smoker Past Alcohol Use History: Occasional Past Drug Use History: None Reported - Past Family History Family Family Medical History: No Reported History Medications and Allergies Home Medications Medication Instructions Recorded Confirmed Type Albuterol Sulfate [Proair Hfa] 2 puff INHALATION RT-QID PRN 02/08/20 02/18/21 History Atorvastatin [Lipitor] 20 mg PO DAILY 02/08/20 02/18/21 History Buprenorphine HCl/Naloxone HCl 1 film SL TID 02/08/20 02/18/21 History [Suboxone 8 mg-2 mg Sl Film] Doxepin HCl 50 mg PO HS 02/08/20 02/18/21 History Gabapentin 1,200 mg PO TID 02/08/20 02/18/21 History Levothyroxine Sodium [Synthroid] 75 mcg PO DAILY 02/08/20 02/18/21 History OLANZapine [ZyPREXA] 10 mg PO DAILY 02/08/20 02/18/21 History Pantoprazole Sodium [Protonix] 40 mg PO DAILY 02/08/20 02/18/21 History Rizatriptan Odt [Maxalt Composition Floor Setter] 10 mg PO BID PRN 02/08/20 02/18/21 History Topiramate [Topamax] 200 mg PO BID 02/08/20 02/18/21 History Phentermine HCl [Adipex-P] 37.5 mg PO DAILY 09/02/20 02/18/21 History Albuterol Nebulized [Ventolin 2.5 mg INHALATION RT-TID PRN 02/18/21 02/18/21 History Nebulized] Ascorbic Acid [Vitamin C] 500 mg PO DAILY 02/18/21 02/18/21 History Cholecalciferol [Vitamin D3 (25 25 mcg PO DAILY 02/18/21 02/18/21 History Mcg = 1000 Iu)] Dapagliflozin Propanediol [Farxiga] 10 mg PO DAILY 02/18/21 02/18/21 History Dicyclomine HCl 20 mg PO QID 02/18/21 02/18/21 History Ergocalciferol (Vitamin D2) 1,250 mcg PO DIRECTED 02/18/21 02/18/21 History [Drisdol (50,000 Iu)] Linaclotide [Linzess] 145 mcg PO DAILY 02/18/21 02/18/21 History Montelukast [Singulair] 10 mg PO HS 02/18/21 02/18/21 History Rivaroxaban [Xarelto] 2.5 mg PO BID 02/18/21 02/18/21 History Solifenacin Succinate 5 mg PO DAILY 02/18/21 02/18/21 History Zinc 50 mg PO DAILY 02/18/21 02/18/21 History busPIRone HCl [Buspar] 10 mg PO TID 02/18/21 02/18/21 History Allergies Allergy/AdvReac Type Severity Reaction Status Date / Time lamotrigine [From Lamictal] Allergy tachycardia Verified 02/18/21 17:31 ,rash morphine Allergy Hallucinati Verified 02/18/21 17:31 ons ondansetron HCl Allergy Anaphylaxis Verified 02/18/21 17:31 [From Zofran (as hydrochloride)] prochlorperazine Allergy Anaphylaxis Verified 02/18/21 17:31 [From Compazine] terbutaline sulfate Allergy Anaphylaxis Verified 02/18/21 17:31 [From Brethine] magnesium sulfate Allergy Anaphylaxis Uncoded 09/04/20 09:56 Physical Exam Vitals: Vital Signs Temp Pulse Resp BP Pulse Ox 02/18/21 20:18 116 H 20 124/89 96 02/18/21 18:45 105 H 18 116/79 97 02/18/21 17:43 98.1 F 115 H 18 117/79 97 02/18/21 17:42 16 02/18/21 16:25 97.1 F L 115 H 19 163/107 98 Intake and Output 02/18/21 02/18/21 02/18/21 06:59 14:59 22:59 Other: Weight 100.244 kg Constitutional: No acute distress, conversant, pleasant Eyes: Anicteric sclerae, moist conjunctiva, Pupils equal round reactive to light ENMT: NC/AT Oropharynx clear, no erythema, or exudates Neck: Supple, no masses, or JVD No carotid bruits No thyromegaly Lungs: Clear to auscultation Clear to percussion Normal respiratory effort, no accessory muscle use Cardiovascular: Heart regular in rate and rhythm, No murmurs, gallops, or rubs No peripheral edema Abdominal: Soft Nontender, no guarding, rebound or rigidity Abdomen moving with respiration Normoactive bowel sounds No hepatomegaly, No splenomegaly No palpable mass No abdominal wall hernia noted Skin: Small area of petechial rash over the lower third of the frontal left leg no warmth to the touch no swelling some discomfort to deep palpation Normal temperature, tone, texture, turgor Extremities: No digital cyanosis No clubbing Pedal pulses intact and symmetrical Radial pulses intact and symmetrical No calf tenderness Psychiatric: Alert and oriented to person, place and time Appropriate affect fair judgement Neuro Muscles Strength 5/5 in all 4 extremities Sensation to light touch grossly present throughout Cranial nerves II-XII grossly intact No focal sensory deficits Lymphatics: no palpable cervical or supraclavicular , or inguinal lymph nodes Results CBC & Chem 7: 02/18/21 18:14 02/18/21 18:14 Labs: Abnormal Lab Results - Last 24 Hours (Table) 02/18/21 Range/Units 18:14 Sodium 136 L (137-145) mmol/L BUN 6 L (7-17) mg/dL Glucose 185 H (74-99) mg/dL Assessment and Plan Assessment: Acute hypoxic respiratory failure Acute PE symptomatic with dyspnea Post Covid Plan Supplemental oxygen Echocardiogram Heparin drip Supportive care IV fluid hydration with normal saline Consider starting full dose Xarelto prior to discharge Ambulatory oxygen saturation CT imaging done outpatient showed bilateral PE Monitor vital signs Diabetes mellitus Insulin sliding scale Bipolar disorder Resume psych medications Xanax for anxiety Ambien for sleep Hypothyroidism Levothyroxine Hyperlipidemia Statin Full code DVT prophylaxis on heparin drip Anticipated length of stay more than 2 midnights
--- NOTE | 2021-02-19 00:02 | US ---
EXAMINATION TYPE: US venous doppler duplex LE BI DATE OF EXAM: 02/18/2021 11:42 PM COMPARISON: NONE CLINICAL HISTORY: PE. PE. SIDE PERFORMED: Bilateral TECHNIQUE: The lower extremity deep venous system is examined utilizing real time linear array sonog herve with graded compression, doppler sonography and color-flow sonography. VESSELS IMAGED: Common Femoral Vein Deep Femoral Vein Greater Saphenous Vein * Femoral Vein Popliteal Vein Small Saphenous Vein * Proximal Calf Veins (* superficial vessels) Exam is limited due to edema. Right Leg: No definite evidence of DVT in veins imaged at this time. Left Leg: No definite evidence of DVT in veins imaged at this time. IMPRESSION: No sign of deep vein thrombosis in both legs.
[2021-02-19] MEDS: DICYCLOMINE 20 MG TAB PO SCH ×5 (00:50→21:23)
[2021-02-19] MEDS: busPIRone HCl 10 MG TAB PO SCH ×4 (00:50→21:23)
[2021-02-19] MEDS: GABAPENTIN 400 MG CAP PO SCH ×4 (00:50→21:23)
[2021-02-19] MEDS: TOPIRAMATE 100 MG TAB PO SCH ×2 (00:51→10:33)
[2021-02-19] MEDS: INSULIN ASPART (NovoLOG) 100 UNIT/ML VIAL SQ SCH ×5 (01:11→21:22)
[2021-02-19] MEDS: ZOLPIDEM 5 MG TAB PO PRN ×2 (01:11→23:34)
[2021-02-19] MEDS: HEPARIN SOD,PORK IN 0.45% NACL 25,000 UNIT in 0.45% NACL 1 250ML.BAG IV SCH (06:37)
[2021-02-19] MEDS: LEVOTHYROXINE 75 MCG TAB PO SCH (06:40)
--- NOTE | 2021-02-19 09:56 | P.CNPUL ---
History of Present Illness Consult date: 02/19/21 Reason for consult: dyspnea History of present illness: 40-year-old female patient, multiple medical problems who was recently hospitalized at [facility] on 01/26/2021 with increased shortness of breath, nausea, emesis, intermittent diarrhea, loss of taste and smell and cough and shortness of breath. The patient tested positive for COVID-19 infection. She was noted to the hospital and the patient hasn't patchy bilateral pulmonary infiltrates consistent with pneumonia. CT angiogram showed no evidence of any pulmonary embolism. It confirmed the presence of COVID-19 pneumonia. The patient was treated with multivitamins, steroids and Remdesivir. Following that, the patient was discharged home. Today, the patient came into our office and the patient post COVID-19 infection. The patient was complaining of increased shortness of breath. The patient was found to be also hypoxic. The patient was given a prednisone burst taper and the patient was asked to undergo a CT angiogram. The CT angiogram came back positive and the patient was further referred to emergency department for hospitalization. The patient is c urrently on IV heparin. Noted the patient was discharged from [facility] with supplemental oxygen. She stated that she has been recovering since her discharge from the hospital until around 3-4 days ago when she experienced worsening shortness of breath. The CT angiogram showed ambika ateral pulmonary embolism, acute. She denies having any previous history of DVT or pulmonary embolism. She also denies having any swelling or redness or pain in lower extremities bilaterally. She has no other complaints. The patient is currently on 40 to approximately nasal cannula with a pulse ox of 96% to CTA of the chest showed diffuse airspace disease consistent with COVID-19 related pneum onia. 8 mm nodule in the left upper lobe, 1 cm nodule in the right upper lobe in addition to bilateral hilar lymphadenopathy measuring less than 1 cm. There was filling defect in the right main pulmonary artery and in addition to the tertiary branches compatible with acute pulmonary embolism. Filling defect was also seen in the upper lobe pulmonary artery branch on the left. Review of Systems Constitutional: Reports fatigue, Reports weakness Eyes: denies as per HPI, denies blurred vision, denies bulging eye, denies decreased vision, denies diplopia, denies discharge, denies dry eye, denies irritation, denies itching, denies pain, denies photophobia, denies loss of peripheral vision, denies loss of vision, denies tunnel vision/blind spots Ears: deny: decreased hearing, ear discharge, earache, tinnitus Ears, nose, mouth and throat: Reports as per HPI Breasts: absent: as per HPI, change in shape, gynecomastia, masses, nipple discharge, pain, skin changes, swelling Cardiovascular: Reports as per HPI, Reports decreased exercise tolerance, Reports dyspnea on exertion Respiratory: Reports dyspnea Gastrointestinal: Reports as per HPI Genitourinary: Reports as per HPI Menstruation: Reports as per HPI Musculoskeletal: Reports as per HPI Musculoskeletal: absent: ankle pain, ankle stiffness, ankle swelling, as per HPI, elbow pain, elbow stiffness, elbow swelling, foot pain, foot stiffness, foot swelling, hand pain, hand stiffness, hand swelling, hip pain, hip stiffness, hip swelling, knee pain, knee stiffness, knee swelling, shoulder pain, shoulder stiffness, shoulder swelling, wrist pain, wrist stiffness, wrist swelling Neurological: Reports as per HPI Psychiatric: Reports as per HPI Endocrine: Reports as per HPI Hematologic/Lymphatic: Reports as per HPI Allergic/Immunologic: Reports as per HPI Past Medical History Past Medical History: Diabetes Mellitus, GERD/Reflux, Hyperlipidemia, Osteoarthritis (OA), Pneumonia (COVID 19) Additional Past Medical History / Comment(s): Covid + January 2021. Diabetes mellitus -. Hyperlipidemia -. Morbid obesity -. Bipolar disorder -. Mixed anxiety and depressive disorder. Drug dependence. Attention deficit hyperactivity disorder. Chronic pain syndrome. Allergic rhinitis. Asthma. Acute respiratory failure - Onset: 01/21/2021. Gastroesophageal reflux disease - Onset: 01/21/2021. Irritable bowel syndrome History of Any Multi-Drug Resistant Organisms: None Reported Past Surgical History: Appendectomy, Cholecystectomy, Hysterectomy, Orthopedic Surgery Additional Past Surgical History / Comment(s): chronic back pain herniated discs Past Psychological History: Anxiety, Bipolar Smoking Status: Former smoker Past Alcohol Use History: Occasional Past Drug Use History: None Reported - Past Family History Family Family Medical History: No Reported History Medications and Allergies Home Medications Medication Instructions Recorded Confirmed Type Albuterol Sulfate [Proair Hfa] 2 puff INHALATION RT-QID PRN 02/08/20 02/18/21 History Atorvastatin [Lipitor] 20 mg PO DAILY 02/08/20 02/18/21 History Buprenorphine HCl/Naloxone HCl 1 film SL TID 02/08/20 02/18/21 History [Suboxone 8 mg-2 mg Sl Film] Doxepin HCl 50 mg PO HS 02/08/20 02/18/21 History Gabapentin 1,200 mg PO TID 02/08/20 02/18/21 History Levothyroxine Sodium [Synthroid] 75 mcg PO DAILY 02/08/20 02/18/21 History OLANZapine [ZyPREXA] 10 mg PO DAILY 02/08/20 02/18/21 History Pantoprazole Sodium [Protonix] 40 mg PO DAILY 02/08/20 02/18/21 History Rizatriptan Odt [Maxalt Gum Rolling Machine Tender] 10 mg PO BID PRN 02/08/20 02/18/21 History Topiramate [Topamax] 200 mg PO BID 02/08/20 02/18/21 History Phentermine HCl [Adipex-P] 37.5 mg PO DAILY 09/02/20 02/18/21 History Albuterol Nebulized [Ventolin 2.5 mg INHALATION RT-TID PRN 02/18/21 02/18/21 History Nebulized] Ascorbic Acid [Vitamin C] 500 mg PO DAILY 02/18/21 02/18/21 History Cholecalciferol [Vitamin D3 (25 25 mcg PO DAILY 02/18/21 02/18/21 History Mcg = 1000 Iu)] Dapagliflozin Propanediol [Farxiga] 10 mg PO DAILY 02/18/21 02/18/21 History Dicyclomine HCl 20 mg PO QID 02/18/21 02/18/21 History Ergocalciferol (Vitamin D2) 1,250 mcg PO DIRECTED 02/18/21 02/18/21 History [Drisdol (50,000 Iu)] Linaclotide [Linzess] 145 mcg PO DAILY 02/18/21 02/18/21 History Montelukast [Singulair] 10 mg PO HS 02/18/21 02/18/21 History Rivaroxaban [Xarelto] 2.5 mg PO BID 02/18/21 02/18/21 History Solifenacin Succinate 5 mg PO DAILY 02/18/21 02/18/21 History Zinc 50 mg PO DAILY 02/18/21 02/18/21 History busPIRone HCl [Buspar] 10 mg PO TID 02/18/21 02/18/21 History Allergies Allergy/AdvReac Type Severity Reaction Status Date / Time lamotrigine [From Lamictal] Allergy tachycardia Verified 02/18/21 17:31 ,rash morphine Allergy Hallucinati Verified 02/18/21 17:31 ons ondansetron HCl Allergy Anaphylaxis Verified 02/18/21 17:31 [From Zofran (as hydrochloride)] prochlorperazine Allergy Anaphylaxis Verified 02/18/21 17:31 [From Compazine] terbutaline sulfate Allergy Anaphylaxis Verified 02/18/21 17:31 [From Brethine] magnesium sulfate Allergy Anaphylaxis Uncoded 09/04/20 09:56 Physical Exam Vitals: Vital Signs Temp Pulse Resp BP Pulse Ox 02/18/21 20:18 116 H 20 124/89 96 02/18/21 18:45 105 H 18 116/79 97 02/18/21 17:43 98.1 F 115 H 18 117/79 97 02/18/21 17:42 16 02/18/21 16:25 97.1 F L 115 H 19 163/107 98 Intake and Output 02/18/21 02/18/21 02/18/21 06:59 14:59 22:59 Other: Weight 100.244 kg Physical exam revealed 40-year-old female in no distress. Very pleasant. She is obese and she has been on 02 at 4 liters/min Head: Atraumatic, normocephalic HEENT: Anicteric sclerae, pink and moist conjunctivae. Extraocular movements intact, pupils are reactive to light they are round and equal. External inspection of ears and nose showed normal mucosa. Oral mucosa, soft and hard palate tongue and posterior pharynx are intact. Neck: Supple no neck masses, no JVD, no thyroid enlargement, no adenopathy. Lungs: Symmetrical expansion, Minimal fine crackles at the bases CVS: Regular rate and rhythm, normal S1 and S2, no gallops, no murmur, no rubs. Abdomen: Soft, nontender, no megaly, no rebound, no guarding, positive bowel sounds. Extremities: No clubbing, no edema, no cyanosis, 2+ pulses in upper and lower extremities. Musculoskeletal: Muscle strength and tone normal. Neurologic: Alert and oriented 3, normal affect, no focal neurologic deficits. Results - Laboratory Findings CBC and BMP: 02/18/21 18:14 02/18/21 18:14 PT/INR, D-dimer PT 11.1 sec (9.0-12.0) 02/18/21 18:14 INR 1.1 (<1.2) 02/18/21 18:14 Abnormal lab findings: Abnormal Labs 02/18/21 18:14 Sodium 136 L BUN 6 L Glucose 185 H Assessment and Plan Plan: 1. Acute bilateral pulmonary embolism, a complication of COVID-19 related pneumonia/infection. The patient is presenting with worsening shortness of breath following a recent hospitalization for COVID-19 related pneumonia back in 01/26/2021. The patient was taken although Xarelto 2.5 mg by mouth twice a day on outpatient basis. Patient presents with worsening shortness of breath. CT angios is revealing bilateral pulmonary embolism and the patient is currently on 4 L of oxygen by nasal cannula 2 acute hypoxic respiratory failure secondary to above currently on 4 L of O2. Noted the patient also had COVID-19 related pneumonia related hypoxemia and the patient was discharged home on O2 at 4 L to abuse on outpatient basis. 3 Pneumonia caused by SARS-CoV-2 with secondary hypoxic respiratory failure. Treated at [facility] during her recent hospitalization back in 01/26/2021 and the patient received O2, steroids and Remdesivir. 4 Type 2 diabetes mellitus without complication 5 Chronic pain syndrome 6. Bipolar disorder 7. Gastroesophageal reflux disease without esophagitis 8 Mild asthma 9 morbid obesity Plan This patient is clinically stable. The patient is currently on 4 L of oxygen by nasal cannula which is the same amount of flow that she was given at a time of discharge from the hospital from COVID 19 infection. Nevertheless, she has developed pulmonary embolism despite her being on Xarelto 2.5 mg by mouth twice a day. She is currently on IV heparin. We are awaiting the Doppler of the lower extremities. Echocardiogram was completed. She will need a higher dose of Xarelto or Eliquis and this had to be within the therapeutic range. The patient is eager to go home. We are going to make ADJUSTMENTS. Make sure she is able to tolerate anticoagulants and following that plan for discharge.
[2021-02-19] MEDS: PANTOPRAZOLE 40 MG TABLET PO SCH (10:30)
[2021-02-19] MEDS: ASCORBIC ACID 500 MG TAB PO SCH (10:31)
[2021-02-19] MEDS: OLANZapine 10 MG TAB PO SCH (10:31)
[2021-02-19] MEDS: ZINC SULFATE 220 MG CAP PO SCH (10:32)
[2021-02-19] MEDS: CHOLECALCIFEROL 25 MCG (1000 IU) TABLET PO SCH (10:32)
[2021-02-19] MEDS: TROSPIUM CHLORIDE 20 MG TABLET PO SCH (10:33)
[2021-02-19] MEDS: ATORVASTATIN 20 MG TAB PO SCH (10:34)
[2021-02-19] MEDS: NON FORMULARY DRUG (Linaclotide [Linzess] 145 MCG Capsule) PO SCH (10:44)
[2021-02-19] MEDS: ALPRAZolam 0.5 MG TAB PO PRN ×2 (10:50→19:52)
[2021-02-19] MEDS: RIVAROXABAN 15 MG TAB PO SCH ×2 (10:50→21:23)
--- NOTE | 2021-02-19 11:01 | ECHOF ---
Referral Reason:PE MEASUREMENTS -------- HEIGHT: 170.2 cm WEIGHT: 100.2 kg BP: 133/76 RVIDd: 2.7 cm (< 3.3) IVSd: 1.4 cm (0.6 - 1.1) LVIDd: 2.5 cm (3.9 - 5.3) LVPWd: 1.5 cm (0.6 - 1.1) IVSs: 1.9 cm LVIDs: 1.6 cm LVPWs: 1.6 cm Ao Diam: 3.0 cm (2.0 - 3.7) AV Cusp: 2.1 cm (1.5 - 2.6) MV EXCURSION: 15.694 mm (> 18.000) MV EF SLOPE: 92 mm/s (70 - 150) EPSS: 0.3 cm MV E Catr[place]ito: 0.64 m/s MV DecT: 112 ms MV A Catr[place]: 0.89 m/s MV E/A Ratio: 0.72 RAP: 5.00 mmHg RVSP: 25.11 mmHg TAPSE: 30.02 mm FINDINGS -------- Resting tachycardia (HR>100bpm). This was a technically difficult study with suboptimal apical views. The left ventricular size is normal. There is moderate concentric left ventricular hypertrophy. O verall left ventricular systolic function is normal with, an EF between 55 - 60 %. The right ventricle is normal in size. Normal LA size by volume 22+/-6 ml/m2. The right atrium was not well visualized. 3.0mg of Lumason was utilized for enhancement of images Interatrial and interventricular septum intact. There is no evidence of aortic regurgitation. There is no evidence of aortic stenosis. No mitral regurgitation. Mild tricuspid regurgitation present. There is no evidence of pulmonary hypertension. The right v entricular systolic pressure, as measured by Doppler, is 25.11mmHg. There is no pulmonic regurgitation present. The aortic root size is normal. IVC Not well visulized. There is no pericardial effusion. CONCLUSIONS -------- 1. The left ventricular size is normal. 2. There is moderate concentric left ventricular hypertrophy. 3. Overall left ventricular systolic function is normal with, an EF between 55 - 60 %. 4. Mild tricuspid regurgitation present. HISTOLOGY MANAGER: Aubree Diego [facility]
--- NOTE | 2021-02-19 11:10 | P.PN ---
Subjective Progress Note Date: 02/19/21 Pt has no complaints today. Came in with reports of decreasing exercise tolerance. Has been on 4L NC since her covid diagnosis. Now with PE on subtherapeutic xarelto. Doing well on heparin gtt. Echo with no evidence of RHS. Pulmonology following. Likely discharge tomorrow with therapeutic NOAC. Objective - Vital Signs Vital signs: Vital Signs Temp 98.4 F 02/19/21 00:52 Pulse 114 H 02/19/21 06:43 Resp 18 02/19/21 06:43 BP 133/76 02/19/21 06:43 Pulse Ox 97 02/19/21 08:49 Intake & Output 02/18/21 02/19/21 02/19/21 18:59 06:59 18:59 Intake Total 218.634 Balance 218.634 Weight 100.244 kg Intake: Intake, IV Titration 218.634 Amount Heparin Sod,Pork in 0.45% 218.634 NaCl 25,000 unit In 0.45 % NaCl 1 250ml.bag @ 18 UNITS/KG/HR 18.044 mls/hr IV .[id number] [facility] Rx#: [id number] Other: # Voids 1 - Exam Gen: awake, alert HEENT: normocephalic, atraumatic, good hearing acuity, moist mucous membranes Resp: good air exchange, breathing comfortably with no accessory muscle use CVS: good distal perfusion x 4, GI: soft, NTTP, ND : no SPT, no CVAT, melendez catheter not present MSK: no pitting edema, no clubbing Neuro: non-focal, moving all extremities Psych: cooperative, euthymic mood - Labs CBC & Chem 7: 02/18/21 18:14 02/18/21 18:14 Labs: Abnormal Lab Results - Last 24 Hours (Table) 02/18/21 02/19/21 Range/Units 18:14 00:31 APTT 40.5 H (22.0-30.0) sec Sodium 136 L (137-145) mmol/L BUN 6 L (7-17) mg/dL Glucose 185 H (74-99) mg/dL Assessment and Plan Assessment: Acute hypoxic respiratory failure Acute PE symptomatic with dyspnea Post Covid Admitted to inpatient Supplemental oxygen Echocardiogram Heparin drip Xarelto vs Eliquis on discharge CT imaging done outpatient showed bilateral PE Diabetes mellitus Insulin sliding scale Bipolar disorder Anxiety Insomnia Resume psych medications Xanax for anxiety Ambien for sleep Hypothyroidism Levothyroxine Hyperlipidemia Statin Full code DVT prophylaxis on heparin drip Anticipated length of stay more than 2 midnights
[2021-02-19 13:18] LABS: Glucose,Whole Blood 302 mg/dL (75-99)
[2021-02-19] MEDS ORDERED: [UNRECOGNIZED DRUG - REMARK] PO PRN (15:23)
[2021-02-19 17:15] LABS: Glucose,Whole Blood 279 mg/dL (75-99)
[2021-02-19 21:02] LABS: Glucose,Whole Blood 253 mg/dL (75-99)
[2021-02-19] MEDS: DOXEPIN 25 MG CAP PO SCH (21:22)
[2021-02-19] MEDS: MONTELUKAST 10 MG TAB PO SCH (21:23)
[2021-02-20 06:27] LABS: Glucose,Whole Blood 198 mg/dL (75-99)
[2021-02-20] MEDS: INSULIN ASPART (NovoLOG) 100 UNIT/ML VIAL SQ SCH ×4 (06:34→20:37)
[2021-02-20] MEDS: LEVOTHYROXINE 75 MCG TAB PO SCH (06:34)
[2021-02-20] MEDS: PANTOPRAZOLE 40 MG TABLET PO SCH (06:34)
[2021-02-20] MEDS: DICYCLOMINE 20 MG TAB PO SCH ×4 (10:08→20:28)
[2021-02-20] MEDS: ATORVASTATIN 20 MG TAB PO SCH (10:08)
[2021-02-20] MEDS: TROSPIUM CHLORIDE 20 MG TABLET PO SCH (10:08)
[2021-02-20] MEDS: ASCORBIC ACID 500 MG TAB PO SCH (10:08)
[2021-02-20] MEDS: CHOLECALCIFEROL 25 MCG (1000 IU) TABLET PO SCH (10:09)
[2021-02-20] MEDS: GABAPENTIN 400 MG CAP PO SCH ×3 (10:09→20:27)
[2021-02-20] MEDS: ZINC SULFATE 220 MG CAP PO SCH (10:09)
[2021-02-20] MEDS: busPIRone HCl 10 MG TAB PO SCH ×3 (10:09→20:28)
[2021-02-20] MEDS: TOPIRAMATE 100 MG TAB PO SCH ×2 (10:10→20:28)
[2021-02-20] MEDS: NON FORMULARY DRUG (Linaclotide [Linzess] 145 MCG Capsule) PO SCH (10:12)
[2021-02-20] MEDS: RIVAROXABAN 15 MG TAB PO SCH ×2 (10:12→20:28)
--- NOTE | 2021-02-20 11:32 | P.PN ---
Subjective Progress Note Date: 02/20/21 Principal diagnosis: Patient is still short of breath with minimal exertion Constitutional: No acute distress, conversant, pleasant Eyes: Anicteric sclerae, moist conjunctiva, no lid-lag PERRLA ENMT: NC/AT Oropharynx clear, no erythema, exudates Neck: Supple, FROM, no masses, or JVD No carotid bruits No thyromegaly Lungs: crackly , no accessory muscle use Cardiovascular: Heart regular in rate and rhythm, No murmurs, gallops, or rubs No peripheral edema Abdominal: Soft Nontender, no guarding, rebound or rigidity Abdomen moving with respiration Normoactive bowel sounds No hepatomegaly, No splenomegaly No palpable mass No abdominal wall hernia noted Skin: Normal temperature, tone, texture, turgor No induration No subcutaneous nodules No rash, lesions No ulcers Extremities: No digital cyanosis No clubbing Pedal pulses intact and symmetrical Radial pulses intact and symmetrical Normal gait and station No calf tenderness Psychiatric:Alert and oriented to person, place and time Appropriate affect Intact judgement Neuro: Muscles Strength 5/5 in all 4 extremities Sensation to light touch grossly present throughout Cranial nerves II-XII grossly intact No focal sensory deficits Acute hypoxic respiratory failure Acute PE symptomatic with dyspnea Post Covid Admitted to inpatient Supplemental oxygen Echocardiogram Heparin drip Xarelto vs Eliquis on discharge CT imaging done outpatient showed bilateral PE Diabetes mellitus Insulin sliding scale Bipolar disorder Anxiety Insomnia Resume psych medications Xanax for anxiety Ambien for sleep Hypothyroidism Levothyroxine Hyperlipidemia Statin Will continue to monitor the patient patient continued to have episodes of shortness of breath needs to stay for further treatment Full code educated Objective - Vital Signs Vital signs: Vital Signs Temp 98 F 02/20/21 04:00 Pulse 102 H 02/20/21 04:00 Resp 18 02/20/21 04:00 BP 106/67 02/20/21 04:00 Pulse Ox 96 02/20/21 04:00 Intake & Output 02/19/21 02/20/21 02/20/21 18:59 06:59 18:59 Intake Total 97.906 240 Balance 97.906 240 Weight 100.244 kg Intake: Intake, IV Titration 97.906 Amount Heparin Sod,Pork in 0.45% 97.906 NaCl 25,000 unit In 0.45 % NaCl 1 250ml.bag @ 18 UNITS/KG/HR 18.044 mls/hr IV .[id number] [facility] Rx#: [id number] Oral 240 Other: Voiding Method Toilet # Voids 1 2 - Labs CBC & Chem 7: 02/18/21 18:14 02/18/21 18:14 Labs: Abnormal Lab Results - Last 24 Hours (Table) 02/19/21 02/19/21 02/19/21 Range/Units 13:16 17:14 21:01 POC Glucose (mg/dL) 302 H 279 H 253 H (75-99) mg/dL 02/20/21 Range/Units 06:26 POC Glucose (mg/dL) 198 H (75-99) mg/dL
[2021-02-20 11:52] LABS: Glucose,Whole Blood 245 mg/dL (75-99)
[2021-02-20] MEDS: OLANZapine 10 MG TAB PO SCH (13:11)
[2021-02-20] MEDS: ALPRAZolam 0.5 MG TAB PO PRN ×2 (13:15→20:28)
[2021-02-20 16:56] LABS: Glucose,Whole Blood 310 mg/dL (75-99)
--- NOTE | 2021-02-20 17:27 | P.PN ---
Subjective Progress Note Date: 02/20/21 40-year-old female patient, multiple medical problems who was recently hospitalized at [facility] on 01/26/2021 with increased shortness of breath, nausea, emesis, intermittent diarrhea, loss of taste and smell and cough and shortness of breath. The patient tested positive for COVID-19 in fection. She was noted to the hospital and the patient hasn't patchy bilateral pulmonary infiltrates consistent with pneumonia. CT angiogram showed no evidence of any pulmonary embolism. It confirmed the presence of COVID-19 pneumonia. The patient was treated with multivitamins, steroids and Remdesivir. Following that, the patient was discharged home. Today, the patient came into our office and the patient post COVID-19 infection. The patient was complaining of increased shortness of breath. The patient was found to be also hypoxic. The patient was given a prednisone burst taper and the patient was asked to undergo a CT angiogram. The CT angiogram came back positive and the patient was further referred to emergency department for hospitalization. The patient is currently on IV heparin. Noted the patient was discharged from [facility] with supplemental oxygen. She stated that she has been recovering since her discharge from the hospital until around 3-4 days ago when she experienced worsening shortness of breath. The CT angiogram showed bilateral pulmonary embolism, acute. She denies having any previous history of DVT or pulmonary embolism. She also denies having any swelling or redness or pain in lower extremities bilaterally. She has no other complaints. The patient is currently on 40 to approximately nasal cannula with a pulse ox of 96% to CTA of the chest showed diffuse airspace disease consistent with COVID-19 related pneumonia. 8 mm nodule in the left upper lobe, 1 cm nodule in the right upper lobe in addition to bilateral hilar lymphadenopathy measuring less than 1 cm. There was filling defect in the right main pulmonary artery and in addition to the tertiary branches compatible with acute pulmonary embolism. Filling defect was also seen in the upper lobe pulmonary artery branch on the left. 02/20/2021, the patient is doing well. No specific complaints and she is calm and comfortable. No cervical respiratory distress. She was taken off the IV heparin the patient was started on oral articulation with Xarelto 50 mg twice a day. No significant cough sputum production chest tightness or wheezing. Doppler of lower extremity was completed and the patient was not found to have any DVTs of the lower extremities. Patient also had an echocardiogram that showed an ejection fraction of 55-60%. There was moderate LVH. No significant pulmonary hypertension. No evidence of any RV strain pattern. For now, the patient is on 4 L about 2 by nasal cannula and her pulse ox is ranging between 96 and 90%. She is afebrile. She is hemodynamically stable. Objective - Vital Signs Vital signs: Vital Signs Temp 96.8 F L 02/20/21 16:00 Pulse 110 H 02/20/21 16:00 Resp 17 02/20/21 16:00 BP 114/64 02/20/21 16:00 Pulse Ox 98 02/20/21 16:00 Intake & Output 02/19/21 02/20/21 02/20/21 18:59 06:59 18:59 Intake Total 97.906 240 840 Balance 97.906 240 840 Weight 100.244 kg Intake: Intake, IV Titration 97.906 Amount Heparin Sod,Pork in 0.45% 97.906 NaCl 25,000 unit In 0.45 % NaCl 1 250ml.bag @ 18 UNITS/KG/HR 18.044 mls/hr IV .[id number] [facility] Rx#: [id number] Oral 240 840 Other: Voiding Method Toilet Toilet # Voids 1 2 2 - Exam Physical exam revealed 40-year-old female in no distress. Very pleasant. She is obese and she has been on 02 at 4 liters/min Head: Atraumatic, normocephalic HEENT: Anicteric sclerae, pink and moist conjunctivae. Extraocular movements intact, pupils are reactive to light they are round and equal. External inspection of ears and nose showed normal mucosa. Oral mucosa, soft and hard palate tongue and posterior pharynx are intact. Neck: Supple no neck masses, no JVD, no thyroid enlargement, no adenopathy. Lungs: Symmetrical expansion, Minimal fine crackles at the bases CVS: Regular rate and rhythm, normal S1 and S2, no gallops, no murmur, no rubs. Abdomen: Soft, nontender, no megaly, no rebound, no guarding, positive bowel sounds. Extremities: No clubbing, no edema, no cyanosis, 2+ pulses in upper and lower extremities. Musculoskeletal: Muscle strength and tone normal. Neurologic: Alert and oriented 3, normal affect, no focal neurologic deficits. - Labs CBC & Chem 7: 02/18/21 18:14 02/18/21 18:14 Labs: Abnormal Lab Results - Last 24 Hours (Table) 02/19/21 02/20/21 02/20/21 Range/Units 21:01 06:26 11:51 POC Glucose (mg/dL) 253 H 198 H 245 H (75-99) mg/dL 02/20/21 Range/Units 16:54 POC Glucose (mg/dL) 310 H (75-99) mg/dL Assessment and Plan Plan: 1. Acute bilateral pulmonary embolism, a complication of COVID-19 related pneumonia/infection. The patient is presenting with worsening shortness of breath following a recent hospitalization for COVID-19 related pneumonia back in 01/26/2021. The patient was taken although Xarelto 2.5 mg by mouth twice a day on outpatient basis. Patient presents with worsening shortness of breath. CT angios is revealing bilateral pulmonary embolism and the patient is currently on 4 L of oxygen by nasal cannula 2 acute hypoxic respiratory failure secondary to above currently on 4 L of O2. Noted the patient also had COVID-19 related pneumonia related hypoxemia and the patient was discharged home on O2 at 4 L to abuse on outpatient basis. 3 Pneumonia caused by SARS-CoV-2 with secondary hypoxic respiratory failure. Treated at [facility] during her recent hospitalization back in 01/26/2021 and the patient received O2, steroids and Remdesivir. 4 Type 2 diabetes mellitus without complication 5 Chronic pain syndrome 6. Bipolar disorder 7. Gastroesophageal reflux disease without esophagitis 8 Mild asthma 9 morbid obesity Plan This patient is clinically stable. Continue anticoagulation with Xarelto 15 mg by mouth twice a day for the next 3 weeks and following the taper the dose to 20 mg once a day. Doppler of the lower extremity has been negative Echocardiac Darrion showing no significant pulmonary hypertension Condition is stable. The patient was discharged home in the next 24 hours and the patient has home O2 at 4 L/m cannula. This will be gradually weaned off.
[2021-02-20] MEDS: DOXEPIN 25 MG CAP PO SCH (20:28)
[2021-02-20] MEDS: MONTELUKAST 10 MG TAB PO SCH (20:28)
[2021-02-20 20:35] LABS: Glucose,Whole Blood 293 mg/dL (75-99)
[2021-02-21 03:27] VITALS: RESP 18
[2021-02-21 06:15] LABS: Glucose,Whole Blood 249 mg/dL (75-99)
[2021-02-21] MEDS: INSULIN ASPART (NovoLOG) 100 UNIT/ML VIAL SQ SCH ×2 (06:43→13:35)
[2021-02-21] MEDS: LEVOTHYROXINE 75 MCG TAB PO SCH (06:43)
[2021-02-21] MEDS: PANTOPRAZOLE 40 MG TABLET PO SCH (06:43)
--- NOTE | 2021-02-21 08:44 | P.DS ---
Providers Date of admission: 02/18/21 19:35 Attending physician: Keyla Aragon MD Consults: 02/18/21 19:35 Consult Physician Routine Consulting Provider: Marguerite Nicholson Consult Reason/Comments: pulmonary emboli Do you want consulting provider notified?: Yes [facility]: 40-year-old female admitted to the hospital with PE patient has been recently treated for culprit pneumonia and hypoxia has been on 4 L oxygen patient has been treated for PE year patient feels better today insisting he wants to go home patient still have episodes of tachycardia explained to the patient that we prefer to patient to stay another night but the patient still wants to go home so patient will be discharged home Constitutional: No acute distress, conversant, pleasant Eyes: Anicteric sclerae, moist conjunctiva, no lid-lag PERRLA ENMT: NC/AT Oropharynx clear, no erythema, exudates Neck: Supple, FROM, no masses, or JVD No carotid bruits No thyromegaly Lungs: Clear to auscultation Clear to percussion Normal respiratory effort, no accessory muscle use Cardiovascular: Heart regular in rate and rhythm, No murmurs, gallops, or rubs No peripheral edema Abdominal: Soft Nontender, no guarding, rebound or rigidity Abdomen moving with respiration Normoactive bowel sounds No hepatomegaly, No splenomegaly No palpable mass No abdominal wall hernia noted Skin: Normal temperature, tone, texture, turgor No induration No subcutaneous nodules No rash, lesions No ulcers Extremities: No digital cyanosis No clubbing Pedal pulses intact and symmetrical Radial pulses intact and symmetrical Normal gait and station No calf tenderness Psychiatric:Alert and oriented to person, place and time Appropriate affect Intact judgement Neuro: Muscles Strength 5/5 in all 4 extremities Sensation to light touch grossly present throughout Cranial nerves II-XII grossly intact No focal sensory deficits Discharge plan Acute hypoxic respiratory failure due to COVID-19 infection stable on 4 L patient has been on 4 L before admission to the hospital after being treated in COVID-19 infection in another hospital PE continues xarelto Bipolar disease Obesity Patient Condition at Discharge: Fair Plan - Discharge Summary Discharge Rx Participant: No New Discharge Prescriptions: New Cefdinir 300 mg PO Q12HR 7 Days #14 cap Rivaroxaban [Xarelto] 20 mg PO DAILY 30 Days #30 tab Rivaroxaban [Xarelto] 15 mg PO BID 20 Days #40 tab Rivaroxaban [Xarelto] 15 mg PO BID tab Continue Topiramate [Topamax] 200 mg PO BID 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] 10 mg PO BID PRN PRN Reason: Migraine Headache Pantoprazole Sodium [Protonix] 40 mg PO DAILY OLANZapine [ZyPREXA] 10 mg PO DAILY Albuterol Sulfate [Proair Hfa] 2 puff INHALATION RT-QID PRN PRN Reason: Shortness Of Breath Levothyroxine Sodium [Synthroid] 75 mcg PO DAILY Gabapentin 1,200 mg PO TID Doxepin HCl 50 mg PO HS Buprenorphine HCl/Naloxone HCl [Suboxone 8 mg-2 mg Sl Film] 1 film SL TID Atorvastatin [Lipitor] 20 mg PO DAILY Phentermine HCl [Adipex-P] 37.5 mg PO DAILY busPIRone HCl [Buspar] 10 mg PO TID Dicyclomine HCl 20 mg PO QID Ascorbic Acid [Vitamin C] 500 mg PO DAILY Cholecalciferol [Vitamin D3 (25 Mcg = 1000 Iu)] 25 mcg PO DAILY Montelukast [Singulair] 10 mg PO HS Zinc 50 mg PO DAILY Dapagliflozin Propanediol [Farxiga] 10 mg PO DAILY Albuterol Nebulized [Ventolin Nebulized] 2.5 mg INHALATION RT-TID PRN PRN Reason: Shortness Of Breath Ergocalciferol (Vitamin D2) [Drisdol (50,000 Iu)] 1,250 mcg PO DIRECTED Solifenacin Succinate 5 mg PO DAILY Linaclotide [Linzess] 145 mcg PO DAILY Discontinued Rivaroxaban [Xarelto] 2.5 mg PO BID Discharge Medication List Albuterol Sulfate [Proair Hfa] 2 puff INHALATION RT-QID PRN 02/08/20 [History] Atorvastatin [Lipitor] 20 mg PO DAILY 02/08/20 [History] Buprenorphine HCl/Naloxone HCl [Suboxone 8 mg-2 mg Sl Film] 1 film SL TID 02/08/20 [History] Doxepin HCl 50 mg PO HS 02/08/20 [History] Gabapentin 1,200 mg PO TID 02/08/20 [History] Levothyroxine Sodium [Synthroid] 75 mcg PO DAILY 02/08/20 [History] OLANZapine [ZyPREXA] 10 mg PO DAILY 02/08/20 [History] Pantoprazole Sodium [Protonix] 40 mg PO DAILY 02/08/20 [History] 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] 10 mg PO BID PRN 02/08/20 [History] Topiramate [Topamax] 200 mg PO BID 02/08/20 [History] Phentermine HCl [Adipex-P] 37.5 mg PO DAILY 09/02/20 [History] Albuterol Nebulized [Ventolin Nebulized] 2.5 mg INHALATION RT-TID PRN 02/18/21 [History] Ascorbic Acid [Vitamin C] 500 mg PO DAILY 02/18/21 [History] Cholecalciferol [Vitamin D3 (25 Mcg = 1000 Iu)] 25 mcg PO DAILY 02/18/21 [History] Dapagliflozin Propanediol [Farxiga] 10 mg PO DAILY 02/18/21 [History] Dicyclomine HCl 20 mg PO QID 02/18/21 [History] Ergocalciferol (Vitamin D2) [Drisdol (50,000 Iu)] 1,250 mcg PO DIRECTED 02/18/21 [History] Linaclotide [Linzess] 145 mcg PO DAILY 02/18/21 [History] Montelukast [Singulair] 10 mg PO HS 02/18/21 [History] Solifenacin Succinate 5 mg PO DAILY 02/18/21 [History] Zinc 50 mg PO DAILY 02/18/21 [History] busPIRone HCl [Buspar] 10 mg PO TID 02/18/21 [History] Rivaroxaban [Xarelto] 15 mg PO BID 20 Days #40 tab 02/20/21 [Rx] Rivaroxaban [Xarelto] 20 mg PO DAILY 30 Days #30 tab 02/20/21 [Rx] Cefdinir 300 mg PO Q12HR 7 Days #14 cap 02/21/21 [Rx] Rivaroxaban [Xarelto] 15 mg PO BID tab 02/21/21 [Rx] Follow up Appointment(s)/Referral(s): Tom Anguiano MD [Primary Care Provider] - 1-2 days Activity/Diet/Wound Care/Special Instructions: Copay for 1st 2 weeks of Xarelto will be $21, then after that copay will be $90, 1st month free card will be applied. Discharge Disposition: HOME SELF-CARE
[2021-02-21] MEDS: ATORVASTATIN 20 MG TAB PO SCH (08:55)
[2021-02-21] MEDS: TOPIRAMATE 100 MG TAB PO SCH (08:55)
[2021-02-21] MEDS: busPIRone HCl 10 MG TAB PO SCH (08:55)
[2021-02-21] MEDS: CHOLECALCIFEROL 25 MCG (1000 IU) TABLET PO SCH (08:55)
[2021-02-21] MEDS: GABAPENTIN 400 MG CAP PO SCH (08:55)
[2021-02-21] MEDS: DICYCLOMINE 20 MG TAB PO SCH ×2 (08:55→13:36)
[2021-02-21] MEDS: ASCORBIC ACID 500 MG TAB PO SCH (08:55)
[2021-02-21] MEDS: RIVAROXABAN 15 MG TAB PO SCH (08:55)
[2021-02-21] MEDS: ZINC SULFATE 220 MG CAP PO SCH (08:55)
[2021-02-21] MEDS: TROSPIUM CHLORIDE 20 MG TABLET PO SCH (08:56)
[2021-02-21] MEDS: OLANZapine 10 MG TAB PO SCH (08:56)
[2021-02-21 09:02] VITALS: BP 138/80; PULSE 121; TEMP 98.1
[2021-02-21 10:17] LABS: Basophils % (A) 0 %; Eosinophils # (A) 0.5 k/uL (0-0.7); Eosinophils % (A) 7 %; HCT 37.7 % (34.0-46.0); HGB 11.8 gm/dL (11.4-16.0); Hypochromasia Slight; Lymphocytes # (A) 2.4 k/uL (1.0-4.8); Lymphocytes % (A) 29 %; MCH 28.8 pg (25.0-35.0); MCHC 31.2 g/dL (31.0-37.0); MCV 92.3 fL (80.0-100.0); Mean Platelet Volume 7.6; Monocytes # (A) 0.4 k/uL (0-1.0); Monocytes % (A) 5 %; Neutrophils # (A) 4.7 k/uL (1.3-7.7); Neutrophils % (A) 57 %; Platelet Count 283 k/uL (150-450); RBC 4.09 m/uL (3.80-5.40); WBC 8.2 k/uL (3.8-10.6)
[2021-02-21 10:28] LABS: ALT 19 U/L (4-34); AST 23 U/L (14-36); African American GFR (CKD) >90 (>60 ml/min/1.73 sqM); Albumin 3.9 g/dL (3.5-5.0); Alkaline Phosphatase 133 U/L (38-126); Anion Gap 7 mmol/L; Blood Urea Nitrogen 10 mg/dL (7-17); Calcium 9.5 mg/dL (8.4-10.2); Carbon Dioxide 26 mmol/L (22-30); Chloride 103 mmol/L (98-107); Glucose 276 mg/dL (74-99); Non-African American GFR(CKD) >90 (>60 ml/min/1.73 sqM); Potassium 4.1 mmol/L (3.5-5.1); Sodium 136 mmol/L (137-145); Total Bilirubin 0.5 mg/dL (0.2-1.3)
[2021-02-21 11:43] LABS: Glucose,Whole Blood 272 mg/dL (75-99)
[2021-02-21] MEDS: NON FORMULARY DRUG (Linaclotide [Linzess] 145 MCG Capsule) PO SCH (12:46)
== END 2021-02-21 14:10 | disposition home or self-care (01) | DRG 175 ==
LOC: EC 15:27 → 3SCARD 19:35
PROVIDERS: ADMIT Internal Medicine; ATTEND Internal Medicine
DX: I26.99 Other pulmonary embolism without acute cor pulmonale (principal); J96.01 Acute respiratory failure with hypoxia; E11.9 Type 2 diabetes mellitus without complications; U09.9 Post COVID-19 condition, unspecified; E66.01 Morbid (severe) obesity due to excess calories; F31.9 Bipolar disorder, unspecified; Z20.822 Contact with and (suspected) exposure to COVID-19; E78.5 Hyperlipidemia, unspecified; G89.4 Chronic pain syndrome; J45.909 Unspecified asthma, uncomplicated; K21.9 Gastro-esophageal reflux disease without esophagitis; M54.9 Dorsalgia, unspecified; K58.9 Irritable bowel syndrome, unspecified; E03.9 Hypothyroidism, unspecified; F41.9 Anxiety disorder, unspecified; F90.9 Attention-deficit hyperactivity disorder, unspecified type; G47.00 Insomnia, unspecified; M19.90 Unspecified osteoarthritis, unspecified site; Z68.34 Body mass index [BMI] 34.0-34.9, adult; Z79.01 Long term (current) use of anticoagulants; Z79.890 Hormone replacement therapy; Z79.84 Long term (current) use of oral hypoglycemic drugs; Z79.899 Other long term (current) drug therapy; Z90.710 Acquired absence of both cervix and uterus; Z90.49 Acquired absence of other specified parts of digestive tract; Z87.42 Personal history of other diseases of the female genital tract; Z87.891 Personal history of nicotine dependence; Z87.01 Personal history of pneumonia (recurrent); Z98.890 Other specified postprocedural states; Z88.5 Allergy status to narcotic agent; Z88.8 Allergy status to other drugs, medicaments and biological substances
CPT/HCPCS: 36415; 71275; 80048; 80053; 83880; 84484; 85025; 85610; 85730; 86850; 86900; 86901; 87635; 93005; 93306; 93970; 94760; 96374; 99291

== ENCOUNTER → 2021-02-18 | Outpatient (CLI) | payer MEDICARE, BC ==
--- NOTE | 2021-02-18 15:08 | CT ---
EXAMINATION TYPE: CT angio chest DATE OF EXAM: 02/18/2021 2:54 PM COMPARISON: 05/12/2014 HISTORY: SOB. Hx Covid 2 weeks ago diagnosed. Pt on 4 l O2, difficulty breathing during test CT DLP: 507.90 mGycm Automated exposure control for dose reduction was used. CONTRAST: CTA scan of the thorax is performed with IV Contrast, patient injected with 100 mL of Isovue 370, pul monary embolism protocol. . FINDINGS: There is a filling defect within the right main pulmonary artery and its territory branches compatibl e with acute pulmonary embolism. Additional filling defect upper lobe pulmonary artery branch pulmona ry embolism. There is diffuse bilateral airspace disease with diffuse bilateral pneumonitis. 8 mm pulmonary nodule left upper lobe axial image increased in size from prior exam 2014 where it measured 4 mm. 1 cm nodu le right upper lobe axial image 57. Additional 5 mm nodule is seen. There is bilateral hilar spinal lymphadenopathy measuring greater than 1 cm in short axis. Coronary artery calcification. No pneumothorax. Interstitial interlobular septal thickening suggestive pulmonary fibrosis. Heart siz e is prominent. Coronary artery calcification noted. There is a small hiatal hernia. Hypertrophic and degenerative changes of the spine. Postcholecystectomy changes seen. IMPRESSION: ACUTE BILATERAL PULMONARY EMBOLISM. REPORT CALLED TO PATIENT'S REFERRING CLINICIAN 3:00 PM 02/18/2021. DIFFUSE BILATERAL AIRSPACE DISEASE CORRELATE FOR DIFFUSE PNEUMONIA OR PNEUMONITIS. MULTIPLE BILATERAL PULMONARY NODULES. MALIGNANCY NOT EXCLUDED CORRELATE CLINICALLY.
== END | disposition home or self-care (01) ==
LOC: RADCTMAIN 14:00
PROVIDERS: ATTEND Internal Medicine
DX: I26.99 Other pulmonary embolism without acute cor pulmonale (principal); R91.8 Other nonspecific abnormal finding of lung field
CPT/HCPCS: 71275; Q9967

== ENCOUNTER → 2021-05-29 | Outpatient (CLI) | payer MEDICARE, BC ==
[2021-05-29 10:33] LABS: Basophils # (A) 0.03 X 10*3/uL (0.00-0.10); Basophils % (A) 0.4 %; Eosinophils # (A) 0.28 X 10*3/uL (0.04-0.35); HCT 40.1 % (37.2-46.3); HGB 13.1 g/dL (12.0-15.0); Immature Grans, Automated 0.6 %; Lymphocytes # (A) 3.32 X 10*3/uL (0.90-5.00); Lymphocytes % (A) 47.7 %; MCH 27.6 pg (27.0-32.0); MCHC 32.7 g/dL (32.0-37.0); MCV 84.4 fL (80.0-97.0); Monocytes # (A) 0.55 X 10*3/uL (0.20-1.00); Monocytes % (A) 7.9 %; NRBC Per 100 WBC 0 /100 WBCS (0.0-0.0); Neutrophils # (A) 2.74 X 10*3/uL (1.80-7.70); Neutrophils % (A) 39.4 %; Platelet Count 282 X 10*3/uL (140-440); RBC 4.75 X 10*6/uL (4.10-5.20); RDW 13.1 % (11.5-14.5); WBC 6.96 X 10*3/uL (4.50-10.00)
[2021-05-29 14:14] LABS: % Iron Saturation 10.79 (12.00-45.00); T4, Free (Free Thyroxine) 1.16 ng/dL (0.800-1.800)
[2021-05-30 13:26] LABS: Zinc, Serum 70 ug/dL (60-130)
[2021-05-30 17:33] LABS: Vitamin D, 1, 25-Dihydroxy 52 pg/mL (20 - 79)
== END | disposition home or self-care (01) ==
LOC: LABWHC1 07:20
PROVIDERS: ATTEND Physician Assistant Medical
DX: L63.1 Alopecia universalis (principal)
CPT/HCPCS: 36415; 82306; 82465; 82652; 83540; 83550; 84439; 84443; 84630; 85025

== ENCOUNTER → 2021-10-06 | Outpatient (CLI) | payer MEDICARE, BC ==
--- NOTE | 2021-10-06 15:46 | MM ---
Reason for Exam: Screening (asymptomatic). Last mammogram was performed 1 year(s) and 1 month(s) ago. Indicated Problems: Pain of the left side (Global) for 3 Month(s). Patient History: Menarche at age 10. First Full-Term at age 23. Left ovary removed at age 24. Right ovary removed at age 24. Hysterectomy at age 24. Postmenopausal. Patient has history of breast feeding. Estrogen for 1 year from age 24 until age 24. Patient used Hormonal Contraceptives for 2 years. Risk Values: Flory 5 year model risk: 0.8%. NCI Lifetime model risk: 10.8%. Prior Study Comparison: 01/12/2006 Bilateral Diagnostic Mammogram, [facility]. 03/20/2019 Bilateral Diagnostic Mammogram, [facility]. 08/16/2020 Bilateral Screening Mammogram, [facility]. Tissue Density: The breast tissue is almost entirely fat. Findings: Analyzed By CAD. No abnormality to correlate with patient's pain. Benign-appearing calcifications are present. There is no suspicious group of microcalcifications or new suspicious mass in either breast. Overall Assessment: Benign, BI-RAD 2 Management: Screening Mammogram of both breasts in 1 year. Clinical management for patient's pain. A clinical breast exam by your physician is recommended on an annual basis and results should be correlated with mammographic findings. Electronically signed and approved by: Miki Morris DO
== END | disposition home or self-care (01) ==
LOC: RADMAMWWP 14:33
PROVIDERS: ATTEND Family Medicine
DX: Z12.31 Encounter for screening mammogram for malignant neoplasm of breast (principal); Z78.0 Asymptomatic menopausal state
CPT/HCPCS: 77063; 77067

== ENCOUNTER → 2021-12-22 | Outpatient (CLI) | payer MEDICARE, BC ==
[2021-12-22 17:28] LABS: Appearance,Urine Clear (Clear); Bilirubin,Urine Negative (Negative); Blood,Urine Negative (Negative); Color,Urine Colorless; Glucose,Urine (UA) 4+ (Negative); Ketones,Urine Negative (Negative); Leukocyte Esterase,Urine Negative (Negative); Nitrite,Urine Negative (Negative); PH, Urine 5.5 (5.0-8.0); Protein,Urine Negative (Negative); Specific Gravity,Urine 1.033 (1.001-1.035); Urobilinogen,Urine <2.0 mg/dL (<2.0)
[2021-12-22 17:32] LABS: Partial Thromboplastin Time 24.4 sec (22.0-30.0); Prothrombin Time 10.7 sec (9.0-12.0)
[2021-12-22 23:01] LABS: Basophils # (A) 0.04 X 10*3/uL (0.00-0.10); Basophils % (A) 0.6 %; Eosinophils # (A) 0.24 X 10*3/uL (0.04-0.35); Eosinophils % (A) 3.6 %; HCT 41.5 % (37.2-46.3); HGB 13.8 g/dL (12.0-15.0); Immature Grans, Automated 0.3 %; Lymphocytes # (A) 3.21 X 10*3/uL (0.90-5.00); Lymphocytes % (A) 48.5 %; MCH 26.9 pg (27.0-32.0); MCHC 33.3 g/dL (32.0-37.0); MCV 80.9 fL (80.0-97.0); Mean Platelet Volume 10.4 fL (9.5-12.2); Monocytes % (A) 7.6 %; NRBC Per 100 WBC 0 /100 WBCS (0.0-0.0); Neutrophils # (A) 2.61 X 10*3/uL (1.80-7.70); Neutrophils % (A) 39.4 %; Platelet Count 290 X 10*3/uL (140-440); RBC 5.13 X 10*6/uL (4.10-5.20); WBC 6.62 X 10*3/uL (4.50-10.00)
[2021-12-22 23:39] LABS: African American GFR (CKD) 102.8 (60.0-200.0); Anion Gap 14.3 mmol/L (10.00-18.00); BUN/Creat Ratio 20.44 Ratio (12.00-20.00); Blood Urea Nitrogen 16.6 mg/dL (9.0-27.0); Calcium 9.7 mg/dL (8.7-10.3); Carbon Dioxide 24.3 mmol/L (20.0-27.5); Non-African American GFR(CKD) 88.7 (60.0-200.0); Potassium 3.4 mmol/L (3.5-5.5)
--- NOTE | 2021-12-23 09:10 | XR ---
EXAMINATION TYPE: XR chest 2V DATE OF EXAM: 12/22/2021 COMPARISON: NONE TECHNIQUE: PA and lateral views submitted. HISTORY: Preop FINDINGS: The lungs are clear and there is no pneumothorax, pleural effusion, or focal pneumonia. Heart size normal with no overt failure. IMPRESSION: 1. No acute process.
== END | disposition home or self-care (01) ==
LOC: LABPAT 16:04
PROVIDERS: ATTEND Orthopaedic Surgery Orthopaedic Surgery of the Spine
DX: Z01.812 Encounter for preprocedural laboratory examination (principal); M43.10 Spondylolisthesis, site unspecified
CPT/HCPCS: 71046; 80048; 81003; 85025; 85610; 85730; 93005

== ENCOUNTER 2021-12-31 10:18 | Inpatient (IN) | payer MEDICARE, BC ==
[~2021-12-31 10:18] MED LIST changes: +DEXAMETHASONE SOD PHOSPHATE 4 MG/ML 1 ML VIAL IV ONE; -LACTATED RINGERS 1,000 ML IV SCH; -LIDOCAINE 1% (10MG/ML) FOR IV START INTRADERMA PRN; +MIDAZOLAM 2 MG/2 ML VIAL IV PRN; +SCOPOLAMINE 1 MG/72 HR PATCH TRANSDERM ONE; +VANCOMYCIN 1,500 MG in SODIUM CHLORIDE 0.9% 500 ML 500 ML IVPB PRN; +ceFAZolin 1,000 MG in SODIUM CHLORIDE 0.9% IRRIGATIO 1,000 ML IRRIGATION PRN; +fentaNYL (PF) 50 MCG/ML 2 ML AMP IV PRN
[2021-12-31] MEDS ORDERED: LACTATED RINGERS 1,000 ML IV ONE ×2 (10:40→15:31)
[2021-12-31 10:52] LABS: Glucose,Whole Blood 99 mg/dL (70-110)
[2021-12-31] MEDS ORDERED: MIDAZOLAM 2 MG/2 ML VIAL IVP ONE ×2 (11:00)
[2021-12-31] MEDS ORDERED: MIDAZOLAM 2 MG/2 ML VIAL ONE (11:16)
[2021-12-31] MEDS ORDERED: fentaNYL (PF) 50 MCG/ML 2 ML AMP ONE (11:16)
[2021-12-31] MEDS ORDERED: ROCURONIUM 10 MG/ML (5 ML VIAL) IV ONE (11:16)
[2021-12-31] MEDS ORDERED: ESMOLOL 100 MG/10 ML VIAL ONE (11:16)
[2021-12-31] MEDS ORDERED: GLYCOPYRROLATE 0.2 MG/ML 2 ML VIAL ONE (11:16)
[2021-12-31] MEDS ORDERED: HYDROmorphone (PF) 1 MG/ML ONE (11:16)
[2021-12-31] MEDS ORDERED: LIDOCAINE 2% INJ 20 MG/ML (2 ML VIAL) ONE (11:16)
[2021-12-31] MEDS ORDERED: KETAMINE 10 MG/ML 20 ML VIAL ONE (11:16)
[2021-12-31] MEDS ORDERED: SUCCINYLCHOLINE CHLORIDE 200 MG/10 ML VIAL IV ONE (11:16)
[2021-12-31] MEDS ORDERED: PROPOFOL 10 MG/ML 20 ML VIAL IV ONE (11:16)
[2021-12-31] MEDS ORDERED: NEOSTIGMINE 1 MG/ML 10 ML VIAL ONE (11:16)
[2021-12-31] MEDS ORDERED: BUPIVACAIN-EPI 0.5%-1:200,000 30 ML VIAL SQ ONE (12:06)
[2021-12-31] MEDS ORDERED: GELATIN SPONGE,ABSORB (LARGE) 1 EACH SPONGE TOPICAL ONE (12:07)
[2021-12-31] MEDS ORDERED: THROMBIN (BOVINE) 5,000 UNIT VIAL TOPICAL ONE (12:07)
[2021-12-31] MEDS ORDERED: LIDOCAINE 2%-EPI 1:100,000 20 ML VIAL SQ ONE ×2 (12:08)
[2021-12-31] MEDS ORDERED: BUPIVACAINE (PF) 0.25% 30 ML VIAL SQ ONE (12:09)
[2021-12-31] MEDS ORDERED: BENZOCAINE/MENTHOL LOZENG 1 EACH LOZENGE MUCOUS MEM PRN (15:39)
[2021-12-31] MEDS ORDERED: HYDROmorphone 0.5 MG/0.5 ML SYRINGE IVP PRN (15:39)
[2021-12-31] MEDS ORDERED: MAGNESIUM HYDROXIDE 2,400 MG/10 ML CUP PO PRN ×2 (15:39)
[2021-12-31] MEDS ORDERED: HYDROmorphone 1 MG/ML 1 ML SYRINGE IVP PRN (15:39)
[2021-12-31] MEDS ORDERED: SUMAtriptan succinate 50 MG TAB PO PRN (15:42)
[2021-12-31] MEDS ORDERED: PROPRANOLOL 10 MG TAB PO PRN (15:42)
--- NOTE | 2021-12-31 15:47 | FL ---
EXAMINATION TYPE: FL guidance operating room DATE OF EXAM: 12/31/2021 HISTORY: Fluoroscopy time 29 seconds of fluoroscopy provided. IMPRESSION: 1. Fluoroscopy time.
--- NOTE | 2021-12-31 15:48 | P.OP ---
Date of Procedure: 12/31/21 Preoperative Diagnosis: Dynamic spondylolisthesis L4 5 L5-S1, spinal stenosis L4 5 L5-S1, degenerative disc disease, lower extremity radiculopathy, lower extremity weakness, neurogenic claudication, facet arthrosis, spondylolysis Postoperative Diagnosis: Same Anesthesia: GETA Pathology: none sent Condition: stable Disposition: PACU Description of Procedure: DESCRIPTION OF PROCEDURE(S): BRIEF OPERATIVE NOTE Preoperative Diagnosis: Dynamic spondylolisthesis L4 5 L5-S1, spinal stenosis L4 5 L5-S1, degenerative disc disease, lower extremity radiculopathy, lower extremity weakness, neurogenic claudication, facet arthrosis, spondylolysis Postoperative Diagnosis: Same Procedure: Laminectomy and decompression L4 5 L5-S1 Computer CT navigation aided Minimally invasive Posterior lateral decompression and facet fusion L4 5 L5-S1 Minimally invasive Transforaminal lumbar interbody fusion for a 360 fusion L4 5 L5-S1 Discectomy for decompression L4 5 L5-S1 Placement of interbody graft L4 5 L5-S1 Use of computer navigation for fusion Local autogenous bone grafting Aspiration of bone marrow from the vertebral body pedicle of L4 on the right Use of bone graft extenders Surgeon: Dr. Eng Microwave Remote Sensing Scientist: Jack PEREIRA who is present throughout the entire the case persistence during positioning, dissection, exposure, visualization, and all crucial elements of the case as well as closure. Anesthesia: General anesthesia per Estimated blood loss: Approximately 500 mL with 125 given back through Cell Saver Complications: None apparent Components implanted: K2M minimally invasive [place] pedicle screw system withscrews measuring 6.5 mm in diameter to rods one [place] interbody cage with 10 mL of osteo amp bio4 bone graft substitute and 30 mL of the BX bone fibers to supplement the local autogenous bone graft and bone marrow aspirate Disposition: To recovery room in good stable condition. OPERATIVE INDICATIONS The patient has had severe issues at their lower extremity in her lower back over the past several years with significant worsening over the past several months. Over the past few months the patient had pain at their back and their lower extremities. The patient is having severe radicular symptoms at their lower extremity with weakness. The patient is having significant pain in their back. They are unable to obtain any comfort. We did aggressive conservative treatment with medications therapy and interventional pain management however thery were not having any relief. The patient also showed evidence of a listhesis with some dynamic instability. The patient had significant listhesis at L4 5 and L5-S1 with evidence for spinal stenosis. These findings correlate well with her low back and lower extremity symptoms and that she was having worsening despite aggressive conservative care. The patient has been through conservative treatment. We discussed various treatment options including surgery, and the patient wishes to proceed with surgery We discussed the risk, patient's alternatives and benefits of surgery including but not limited to, risk of bleeding risk of infection, risk of need for further surgery, risk of decreased, loss of motion, muscle function, malunion nonunion, hardware failure, nerve damage, paralysis, heart attack, blindness and . They understood issues with the current pandemic and the possibility of exposure. OPERATIVE SUMMARY After discussing all the risks, patient alternatives and benefits at length, the patient elected to proceed with surgical intervention, signed informed consent, and presented for their procedure. The patient was seen and examined in the preoperative holding area and the surgical site was marked. The patient was given antibiotics and brought to the operating room. The patient was sedated and intubated by anesthesia in standard fashion. The patient was positioned on to the operating room table in a prone position on the appropriate frame which was well-padded and well molded. We were careful to pad any bony prominences and pressure points. We were careful to maintain the patient's cervical spine and good neutral alignment and position throughout. The patient was prepped and draped in a normal standard fashion. An appropriate timeout and keystone protocol performed. We were able to proceed with the surgery. The local wound area was infiltrated with local anesthetic. Over the right iliac crest I was able to make small stab incisions and establish a guidepin screw fixation to the iliac crest 2. I was able place the computer referencing device over the guidepins to establish an appropriate reference point for the Ziem CT navigation. We then were able to place patient in an appropriate drape and do a navigation spin for visualization and 3-D reconstruction of the lumbar spine. I was able utilize C-arm guidance and navigation to establish appropriate position over the pedicles bilaterally at the appropriate levels at L4 5 and S1. With the appropriate levels confirmed was able to make small incisions over the appropriate pedicle sites bilaterally. Utilizing the computer navigation device I was able to establish bony landmarks at the right iliac crest for a bony reference point for the navigation device. I was able to establish a [place]sh[place] needle over the lateral aspect of the pedicle and advanced the trocar into the pedicle being careful not to breech superiorly inferiorly medially or laterally using computer navigation device. Position was confirmed regularly with AP and lateral images on C-arm and with the computer navigation device at the appropriate levels bilaterally. I was able to establish the trocar into the pedicle appropriately into the posterior aspect of the vertebral body bilaterally at the appropriate levels. This was done at each of the pedicle positions and each of the vertebrae. At the superior vertebrae of L4 on the right I was able to take approximately 25 mL of bone aspiration for use later in the case to supplement the allograft and autograft bone. I was able place the guidewire into the trocar and into the vertebral body appropriately under C-arm guidance. Dissection was taken down over the wire to the appropriate starting position for the screw placed. The appropriate length screw was chosen, threaded over the guidewire and screwed appropriately into the pedicle and vertebral body under C-arm guidance in exc ellent alignment and position with good bony purchase. This is done at each of the screw sites at the appropriate levels at L4-L5 and S1. We did testing and the L5 5 and S1 screws showed some stimulation at approximately 12 mA. We decided to do a second spin after the screws were intact and this showed excellent alignment and position of the hardware without any significant compromise from the screws. I felt that we could leave the screws intact at the positions without any issues with nervous compression With the screws intact I extended the incision to connect the screw hole sites on the most symptomatic side on the left. I dissected down to establish access over the pars and lamina to the base of the spinous process. I was able to expose the facet joint. The capsule the facet was taken down and showed some facet arthrosis at the joint. I was able to use a combination of curettes and [place] rongeurs and a high-speed drill to take down the facet joint and do a facetectomy. I was able get excellent foraminal decompression and central decompression with undermining across midline to perform a laminectomy centrally and contralaterally. As able get good central decompression. There've been severe facet arthrosis and spurring the subarticular space which was remedied with the decompression foraminotomies and partial facetectomy The ligamentum flavum was taken down to further decompress centrally and at bilateral neural foramen. I was able to expose the disc space and visualize the traversing nerve root. Note was made of some disc protrusion and disc herniation that was abutting the traversing nerve root at the level causing further compression of the nerve root. I was able to establish a annulotomy at the appropriate level protecting soft tissue and neural structures. Note was made of some disc desiccation at the disc. I performed a complete discectomy with accommodation of curettes and rasps and scrapers. I was able get good endplate preparation at the disc space. I sized for the appropriate size interbody spacer protecting the soft tissue and neural structures. The wound was copiously irrigated and suctioned dry. There is no evidence of any dural tear or leak. I was able to pack the disc space with local autogenous bone graft as well as a small amount of bone graft which was also placed into the interbody cage itself. Protecting the soft tissue structures and neural structures I was able place the interbody cage in good alignment and good position with good fit and fill at the interbody space. Position was confirmed with C-arm guidance. Good hemostasis maintained. There is no evidence of any dural tear or leak. The wound was irrigated and suctioned dry. With the hardware intact, intraoperative C-arm imaging was again taken which showed good alignment and position of the hardware at the appropriate levels. We were then able to measure, contour and place the rods and appropriate hardware bilaterally. I was able get reduction of the listhesis with placement of screws and rods. I was able to place capcrews, tighten them down, and torque them with the torque screwdriver appropriately. With this intact I was able to place the local autogenous bone graft with additional bone graft enhancer as necessary into the posterior lateral gutters over the decorticated transverse processes and facet joints on the contralateral side. The remainder of the bone graft was placed over the facet joint on the contralateral side after taking down the facet joint capsule. With the bone graft intact, a stable construct, and good decompression at the appropriate levels, we were able to proceed with closure. Good hemostasis was maintained. There is no evidence of dural tear or leak. The fascia was closed for a watertight closure. he subcuticular tissue was closed with absorbable suture. The wound was cleaned and dried and dressed with the appropriate dressing. The drapes were broken down. The patient was gently rolled back onto their hospital bed being careful to maintain their cervical spine and good neutral alignment and position. They were woken up by anesthesia, extubated, and brought to the recovery room in good stable condition. The patient will be admitted to the hospital for appropriate postoperative care, medical management and monitoring. We will continue to follow them closely about the postoperative course.
--- NOTE | 2021-12-31 15:48 | XR ---
EXAM TYPE: LUMBAR SPINE X RAY SERIES COMPARISON: NONE HISTORY: Postop TECHNIQUE: 4 views are submitted. FINDINGS: Limited resolution images are submitted performed intraoperatively. Postsurgical changes demonstrated . IMPRESSION: 1. Intraoperative
[2021-12-31] MEDS ORDERED: METOPROLOL TARTRATE 5 MG/5 ML VIAL IVP ONE (16:15)
[2021-12-31 16:19] LABS: Glucose,Whole Blood 119 mg/dL (70-110)
[2021-12-31] MEDS ORDERED: HYDROmorphone 0.5 MG/0.5 ML SYRINGE IVP ONE ×2 (16:22→16:31)
[2021-12-31] MEDS ORDERED: diphenhydrAMINE 50 MG/ML 1 ML VIAL IVP ONE (16:31)
[2021-12-31] MEDS: LACTATED RINGERS 1,000 ML IV SCH (17:03)
[2021-12-31] MEDS ORDERED: NON FORMULARY DRUG (Buprenorphine Hcl/Naloxone Hcl [Suboxone 8 Mg-2 Mg Sl Film] 1 EACH Fil SUBLINGUAL SCH (17:15)
[2021-12-31 17:35] LABS: Glucose,Whole Blood 121 mg/dL (70-110)
[2021-12-31] MEDS: SODIUM CHLORIDE 0.9% 1,000 ML IV SCH (17:38)
[2021-12-31] MEDS: busPIRone HCl 10 MG TAB PO SCH (17:40)
[2021-12-31] MEDS: GABAPENTIN 400 MG CAP PO SCH (17:40)
[2021-12-31] MEDS: INSULIN ASPART (NovoLOG) 100 UNIT/ML VIAL SQ SCH (17:49)
[2021-12-31] MEDS: NON FORMULARY DRUG (Buprenorphine Hcl/Naloxone Hcl [Suboxone 8 Mg-2 Mg Sl Film] 1 EACH Fil SUBLINGUAL SCH (18:57)
[2021-12-31] MEDS: TOPIRAMATE 100 MG TAB PO SCH (20:19)
[2021-12-31] MEDS: CYCLOBENZAPRINE 10 MG TAB PO PRN (20:19)
[2021-12-31] MEDS: HYDROcodone/APAP 5-325MG 1 EACH TAB PO PRN (20:19)
[2021-12-31 20:55] LABS: Glucose,Whole Blood 172 mg/dL (70-110)
[2021-12-31] MEDS: INSULIN DETEMIR (LEVEMIR) 100 UNIT/ML SYR SQ SCH (21:58)
[2022-01-01] MEDS: busPIRone HCl 10 MG TAB PO SCH ×4 (00:08→21:13)
[2022-01-01] MEDS: NON FORMULARY DRUG (Buprenorphine Hcl/Naloxone Hcl [Suboxone 8 Mg-2 Mg Sl Film] 1 EACH Fil SUBLINGUAL SCH ×4 (00:08→21:14)
[2022-01-01] MEDS: GABAPENTIN 400 MG CAP PO SCH ×4 (00:09→21:13)
[2022-01-01] MEDS: HYDROcodone/APAP 5-325MG 1 EACH TAB PO PRN (01:57)
[2022-01-01] MEDS: diazePAM 5 MG TAB PO PRN ×2 (01:58→17:51)
[2022-01-01] MEDS ORDERED: HYDROmorphone 0.5 MG/0.5 ML SYRINGE IVP PRN (02:24)
[2022-01-01] MEDS: HYDROmorphone 1 MG/ML 1 ML SYRINGE IVP PRN ×4 (02:56→22:36)
[2022-01-01 06:53] LABS: Glucose,Whole Blood 163 mg/dL (70-110)
[2022-01-01] MEDS: HYDROcodone/APAP 7.5-325MG 1 EACH TAB PO PRN ×3 (07:04→17:50)
[2022-01-01] MEDS: CYCLOBENZAPRINE 10 MG TAB PO PRN ×3 (07:04→21:13)
[2022-01-01] MEDS: LEVOTHYROXINE 75 MCG TAB PO SCH (07:05)
[2022-01-01] MEDS: SODIUM CHLORIDE 0.9% 1,000 ML IV SCH ×2 (07:05→18:24)
[2022-01-01] MEDS: INSULIN ASPART (NovoLOG) 100 UNIT/ML VIAL SQ SCH ×3 (07:05→17:51)
[2022-01-01] MEDS: LACTATED RINGERS 1,000 ML IV SCH (07:06)
--- NOTE | 2022-01-01 07:29 | P.PN ---
Progress Note - Text Progress Note Date: 01/01/22 Postoperative day #1 Patient is seen and examined today at bedside. The patient has a significant history with pain and substances. She is on chronic Suboxone. She has some anxiety about her pain and we discussed the pain control at length this morning. She understands that it will be difficult to get a great handle on her pain but we will do all we can to try to keep her as comfortable as possible without putting her respiratory status at risk. She denies any nausea or vomiting. She denies any new numbness tingling in her lower extremity is. The pain is focused primarily at her surgical site of her back as expected. She has not yet been out of bed.. Physical Exam Afebrile she is tachycardic with sinus rhythm and on telemetry. Abdomen is soft nontender. Chest has good excursion deep and space expiration The incision site is clean dry and intact. No erythema there is no purulence. Her abdomen is soft nontender Extremities have not had neurologic change from prior to surgery. She has sustained dorsal flexion plantar flexion and extensor hallucis longus Calves and thighs were soft nontender without evidence of DVT. Assessment/Plan Postoperative day #1 status post minimally invasive decompression and fusion L4 5 L5-S1 for spondylolisthesis with spinal stenosis and lower extremity radiculopathy History of substance issues on chronic Suboxone Difficulty with pain control Patient is progressing as expected from the surgery. She has anxiety with her pain and has some history of chronic issues with substance and it has been somewhat difficult to control her pain though she is managing relatively adequately with the regimen currently. She is on a number of muscle relaxants, pain modifiers with Neurontin, narcotic pain medications as well. I don't think that we can go up on her muscle relaxation Valium as she is asking currently. We will see how she does with the alternating [place] and Dilaudid I think he could be helpful to have pain management see her to consider different drug regimens to help her while she is here in the hospital We will continue to increase the patient's mobilization with therapy. We will continue pain control with oral or IV medications. We'll continue to follow patient closely.
[2022-01-01] MEDS: PANTOPRAZOLE 40 MG TABLET PO SCH ×2 (08:13→15:43)
[2022-01-01] MEDS: TOPIRAMATE 100 MG TAB PO SCH ×2 (08:13→21:13)
[2022-01-01] MEDS: ATORVASTATIN 40 MG TAB PO SCH (08:13)
[2022-01-01] MEDS: SENNOSIDES-DOCUSATE SODIUM 1 EACH TAB PO SCH (08:13)
[2022-01-01] MEDS ORDERED: NON FORMULARY DRUG (Phentermine Hcl [Adipex-P] 37.5 MG Tablet) PO SCH (09:00)
[2022-01-01] MEDS: OLANZapine 10 MG TAB PO SCH (10:15)
[2022-01-01] MEDS: VARENICLINE 1 MG TAB PO SCH (10:15)
[2022-01-01] MEDS: DAPAGLIFLOZIN PROPANEDIOL 10 MG TABLET PO SCH (10:15)
[2022-01-01 10:28] LABS: Basophils % (A) 0 %; Eosinophils % (A) 0 %; HCT 33.8 % (34.0-46.0); HGB 11.3 gm/dL (11.4-16.0); Lymphocytes # (A) 1.7 k/uL (1.0-4.8); Lymphocytes % (A) 20 %; MCH 28.2 pg (25.0-35.0); MCHC 33.5 g/dL (31.0-37.0); MCV 84.3 fL (80.0-100.0); Mean Platelet Volume 7.8; Monocytes # (A) 0.6 k/uL (0-1.0); Monocytes % (A) 7 %; Neutrophils # (A) 5.8 k/uL (1.3-7.7); Neutrophils % (A) 70 %; Platelet Count 226 k/uL (150-450); RBC 4.01 m/uL (3.80-5.40); RDW 14.3 % (11.5-15.5); WBC 8.2 k/uL (3.8-10.6)
[2022-01-01 10:45] LABS: African American GFR (CKD) >90 (>60 ml/min/1.73 sqM); Anion Gap 7 mmol/L; Blood Urea Nitrogen 9 mg/dL (7-17); Carbon Dioxide 23 mmol/L (22-30); Chloride 104 mmol/L (98-107); Glucose 118 mg/dL (74-99); Non-African American GFR(CKD) >90 (>60 ml/min/1.73 sqM); Potassium 3.7 mmol/L (3.5-5.1); Sodium 134 mmol/L (137-145)
[2022-01-01 11:32] LABS: Glucose,Whole Blood 132 mg/dL (70-110)
--- NOTE | 2022-01-01 13:54 | P.CONS ---
History of Present Illness - Reason for Consult Consult date: 01/01/22 Medical management - History of Present Illness Reason for consultation; medical management History of present illness; patient is 41-year-old lady with past medical history of spinal stenosis, degenerative disc disease, lower extremity radiculopathy presented to the hospital for elective procedure, patient underwent laminectomy and decompression of L4 L5-S1. Patient underwent the procedure well, patient had 500 mL of blood loss with 125 mL given back to [facility]. Patient was seen in room 477 for medical consultation. Currently patient is complaining of back pain, patient currently on IV and oral pain medications, pain management has been consulted. REVIEW OF SYSTEMS: CONSTITUTIONAL: No fever, no malaise, no fatigue. HEENT: No recent visual problems or hearing problems. Denied any sore throat. CARDIOVASCULAR: No chest pain, orthopnea, PND, no palpitations, no syncope. PULMONARY: No shortness of breath, no cough, no hemoptysis. GASTROINTESTINAL: No diarrhea, no nausea, no vomiting, no abdominal pain. NEUROLOGICAL: No headaches, no weakness, no numbness. HEMATOLOGICAL: Denies any bleeding or petechiae. GENITOURINARY: Denies any burning micturition, frequency, or urgency. MUSCULOSKELETAL/RHEUMATOLOGICAL: Continues to complain of back pain ENDOCRINE: Denies any polyuria or polydipsia. The rest of the 14-point review of systems is negative. PHYSICAL EXAMINATION: GENERAL: The patient is alert and oriented x3, not in any acute distress. Well developed, well nourished. HEENT: Pupils are round and equally reacting to light. EOMI. No scleral icterus. No conjunctival pallor. Normocephalic, atraumatic. No pharyngeal erythema. No thyromegaly. CARDIOVASCULAR: S1 and S2 present. No murmurs, rubs, or gallops. PULMONARY: Chest is clear to auscultation, no wheezing or crackles. ABDOMEN: Soft, nontender, nondistended, normoactive bowel sounds. No palpable organomegaly. MUSCULOSKELETAL: No joint swelling or deformity. EXTREMITIES: No cyanosis, clubbing, or pedal edema. NEUROLOGICAL: Gross neurological examination did not reveal any focal deficits. SKIN: No rashes. Lumbar regular surgical incision seen Assessment and plan Postoperative day #1 status post minimally invasive decompression and fusion L4 5 L5-S1 for spondylolisthesis with spinal stenosis and lower extremity radiculopathy History of substance issues on chronic Suboxone Insulin-dependent diabetes mellitus. Hypothyroidism Plan; Continue pain management per neurosurgery Continue DVT prophylaxis per neurosurgery Continue current insulin regimen Continue Synthroid PT and OT evaluation pain management consulted Past Medical History Past Medical History: Diabetes Mellitus, GERD/Reflux, Hyperlipidemia, Osteoarthritis (OA), Pneumonia, Pulmonary Embolus (PE) Additional Past Medical History / Comment(s): 01/26/[address] [facility]. IDDM. Neuropathy bilateral feet/legs, past drug addiction, migraines, chronic back pain/herniated disc, arthritis in multiple joints, IBS, hypothyroid, rhinitis. History of Any Multi-Drug Resistant Organisms: None Reported Past Surgical History: Appendectomy, Cholecystectomy, Hysterectomy, Orthopedic Surgery Additional Past Surgical History / Comment(s): chronic back pain herniated discs, multiple L knee surgeries, colonoscopy/benign polypectomy. Past Anesthesia/Blood Transfusion Reactions: No Reported Reaction Past Psychological History: ADD/ADHD, Anxiety, Bipolar, Depression Additional Psychological History / Comment(s): Pt resides with her spouse and 3 children. Pt does not drive, she gets to [email or web address] thru family/friends. Smoking Status: Former smoker Past Alcohol Use History: Occasional Additional Past Alcohol Use History / Comment(s): STARTED UP SMOKING, ABOUT 6 A DAY. Pt started smoking in 1997 and quit 01/2021. Past Drug Use History: Methamphetamine, Opiates Additional Drug Use History / Comment(s): Pt has not used drugs since 2018. - Past Family History Father Family Medical History: No Reported History Additional Family Medical History / Comment(s): Father is healthy Mother Family Medical History: No Reported History Additional Family Medical History / Comment(s): Mother is healthy Family Family Medical History: No Reported History Medications and Allergies Home Medications Medication Instructions Recorded Confirmed Type Atorvastatin [Lipitor] 40 mg PO QAM 02/08/20 12/31/21 History Buprenorphine HCl/Naloxone HCl 1 film SL TID 02/08/20 12/31/21 History [Suboxone 8 mg-2 mg Sl Film] Doxepin HCl 50 mg PO HS 02/08/20 12/31/21 History Gabapentin 1,200 mg PO TID 02/08/20 12/31/21 History Levothyroxine Sodium [Synthroid] 75 mcg PO QAM 02/08/20 12/31/21 History OLANZapine [ZyPREXA] 10 mg PO QAM 02/08/20 12/31/21 History Pantoprazole Sodium [Protonix] 40 mg PO QAM 02/08/20 12/31/21 History Rizatriptan Odt [Maxalt CLINICAL QUALITY ASSURANCE SPECIALIST] 10 mg PO BID PRN 02/08/20 12/31/21 History Topiramate [Topamax] 200 mg PO BID 02/08/20 12/31/21 History Phentermine HCl [Adipex-P] 37.5 mg PO QAM 09/02/20 12/31/21 History Dapagliflozin Propanediol [Farxiga] 10 mg PO QAM 02/18/21 12/31/21 History busPIRone HCl [Buspar] 10 mg PO TID 02/18/21 12/31/21 History Insulin Aspart [NovoLOG] 16 unit SQ AC-TID 12/29/21 12/31/21 History Insulin Glargine,Hum.rec.anlog 60 unit SQ HS 12/29/21 12/31/21 History [Lantus Solostar Pen] Propranolol [Inderal] 10 mg PO TID PRN 12/29/21 12/31/21 History Varenicline [Chantix Starter Pack] 1 mg PO DAILY 12/29/21 12/31/21 History hydrOXYzine HCL [Atarax] 100 mg PO Q6H PRN 12/29/21 12/31/21 History Allergies Allergy/AdvReac Type Severity Reaction Status Date / Time lamotrigine [From Lamictal] Allergy tachycardia Verified 12/31/21 10:36 ,rash morphine Allergy Hallucinati Verified 12/31/21 10:36 ons ondansetron HCl Allergy Anaphylaxis Verified 12/31/21 10:36 [From Zofran (as hydrochloride)] prochlorperazine Allergy Anaphylaxis Verified 12/31/21 10:36 [From Compazine] terbutaline sulfate Allergy Anaphylaxis Verified 12/31/21 10:36 [From Brethine] magnesium sulfate Allergy Anaphylaxis Uncoded 12/31/21 10:36 Physical Exam Vitals: Vital Signs Temp Pulse Pulse Resp BP Pulse Ox 01/01/22 08:00 99.7 F H 128 H 24 124/79 93 L 01/01/22 03:20 126 H 18 01/01/22 01:47 97.9 F 135 H 30 H 131/80 94 L 12/31/21 20:05 110 H 22 12/31/21 19:30 110 H 115/80 97 12/31/21 19:15 104 H 136/86 97 12/31/21 19:00 104 H 114/80 97 12/31/21 18:45 110 H 117/81 96 12/31/21 18:30 104 H 115/79 95 12/31/21 18:15 101 H 121/82 96 12/31/21 18:00 110 H 117/75 95 12/31/21 17:45 111 H 112/72 12/31/21 17:30 107 H 127/84 95 12/31/21 17:20 97.7 F 114 H 22 111/74 95 12/31/21 16:49 110 H 18 115/69 96 12/31/21 16:36 108 H 18 111/55 97 12/31/21 16:21 108 H 22 133/79 98 12/31/21 16:06 125 H 16 140/86 99 12/31/21 15:50 98 F 119 H 16 137/93 99 Intake and Output 12/31/21 01/01/22 01/01/22 22:59 06:59 14:59 Intake Total 1200 Output Total 800 1100 Balance 400 -1100 Intake: IV 1000 Oral 200 Output: Urine 300 1100 Estimated Blood Loss 500 Other: Voiding Method Indwelling Catheter Indwelling Catheter Weight 105.9 kg Results CBC & Chem 7: 01/01/22 10:03 01/01/22 10:03 Labs: Abnormal Lab Results - Last 24 Hours (Table) 12/31/21 12/31/21 12/31/21 Range/Units 16:15 17:33 20:53 Hgb (11.4-16.0) gm/dL Hct (34.0-46.0) % Sodium (137-145) mmol/L Glucose (74-99) mg/dL POC Glucose (mg/dL) 119 H 121 H 172 H (70-110) mg/dL Calcium (8.4-10.2) mg/dL 01/01/22 01/01/22 01/01/22 Range/Units 06:52 10:03 10:03 Hgb 11.3 L (11.4-16.0) gm/dL Hct 33.8 L (34.0-46.0) % Sodium 134 L (137-145) mmol/L Glucose 118 H (74-99) mg/dL POC Glucose (mg/dL) 163 H (70-110) mg/dL Calcium 8.0 L (8.4-10.2) mg/dL 01/01/22 Range/Units 11:30 Hgb (11.4-16.0) gm/dL Hct (34.0-46.0) % Sodium (137-145) mmol/L Glucose (74-99) mg/dL POC Glucose (mg/dL) 132 H (70-110) mg/dL Calcium (8.4-10.2) mg/dL
[2022-01-01 16:13] LABS: Glucose,Whole Blood 198 mg/dL (70-110)
[2022-01-01 19:22] LABS: Glucose,Whole Blood 213 mg/dL (70-110)
[2022-01-01] MEDS: INSULIN DETEMIR (LEVEMIR) 100 UNIT/ML SYR SQ SCH (21:13)
[2022-01-01] MEDS: DOXEPIN 25 MG CAP PO SCH ×2 (22:37)
[2022-01-02] MEDS: diazePAM 5 MG TAB PO PRN ×3 (00:37→14:16)
[2022-01-02] MEDS: HYDROcodone/APAP 7.5-325MG 1 EACH TAB PO PRN ×5 (00:37→22:15)
[2022-01-02] MEDS: hydrOXYzine HCL 25 MG TAB PO PRN ×2 (01:08→09:04)
[2022-01-02] MEDS: CYCLOBENZAPRINE 10 MG TAB PO PRN ×3 (04:45→22:18)
[2022-01-02] MEDS: HYDROmorphone 1 MG/ML 1 ML SYRINGE IVP PRN ×4 (04:45→23:59)
[2022-01-02] MEDS: LEVOTHYROXINE 75 MCG TAB PO SCH (04:45)
[2022-01-02 05:49] LABS: Glucose,Whole Blood 211 mg/dL (70-110)
[2022-01-02] MEDS: LACTATED RINGERS 1,000 ML IV SCH (08:57)
[2022-01-02] MEDS: INSULIN ASPART (NovoLOG) 100 UNIT/ML VIAL SQ SCH ×3 (09:00→17:03)
[2022-01-02] MEDS: ATORVASTATIN 40 MG TAB PO SCH (09:01)
[2022-01-02] MEDS: GABAPENTIN 400 MG CAP PO SCH ×3 (09:01→20:51)
[2022-01-02] MEDS: DAPAGLIFLOZIN PROPANEDIOL 10 MG TABLET PO SCH (09:01)
[2022-01-02] MEDS: PANTOPRAZOLE 40 MG TABLET PO SCH ×2 (09:01→16:31)
[2022-01-02] MEDS: busPIRone HCl 10 MG TAB PO SCH ×3 (09:01→22:15)
[2022-01-02] MEDS: SENNOSIDES-DOCUSATE SODIUM 1 EACH TAB PO SCH (09:02)
[2022-01-02] MEDS: OLANZapine 10 MG TAB PO SCH (09:02)
[2022-01-02] MEDS: VARENICLINE 1 MG TAB PO SCH (09:02)
[2022-01-02] MEDS: TOPIRAMATE 100 MG TAB PO SCH ×2 (09:02→20:50)
[2022-01-02] MEDS: NON FORMULARY DRUG (Buprenorphine Hcl/Naloxone Hcl [Suboxone 8 Mg-2 Mg Sl Film] 1 EACH Fil SUBLINGUAL SCH ×3 (09:44→22:14)
[2022-01-02] MEDS: SODIUM CHLORIDE 0.9% 1,000 ML IV SCH ×2 (09:44→21:12)
[2022-01-02 11:53] LABS: Glucose,Whole Blood 93 mg/dL (70-110)
[2022-01-02] MEDS ORDERED: HYDROcodone/APAP 7.5-325MG 1 EACH TAB PO PRN (12:30)
--- NOTE | 2022-01-02 12:35 | P.PN ---
Subjective Progress Note Date: 01/02/22 Principal diagnosis: Status post minimally invasive decompression and fusion L4 5 L5-S1 Patient is seen at bedside this morning. She is postop day #2 from minimally invasive decompression and fusion L4 5 L5-S1. She has pain at the surgical site as expected but denies any new complaints. She denies numbness, tingling or calf pain. Review of systems is negative for fever, chills, chest pain, shortness of breath or other Objective - Vital Signs Vital signs: Vital Signs Temp 97.9 F 01/02/22 08:00 Pulse 122 H 01/02/22 08:00 Resp 17 01/02/22 08:00 BP 133/76 01/02/22 08:00 Pulse Ox 100 01/02/22 08:00 FiO2 Intake & Output 01/01/22 01/02/22 01/02/22 18:59 06:59 18:59 Output Total 1650 700 200 Balance -1650 -700 -200 Output: Urine 1650 700 200 Other: Voiding Method Indwelling Catheter Toilet # Voids 5 2 - Exam Inspection reveals a benign surgical wound. There is no active bleeding or drainage. Neurovascular status is intact throughout the lower extremities with motor and sensation fully intact. Calves are soft and nontender. 2+ dorsalis pedis pulse and less than 2 second cap refill is present. - Constitutional General appearance: Present: no acute distress - Labs CBC & Chem 7: 01/01/22 10:03 01/01/22 10:03 Labs: Abnormal Lab Results - Last 24 Hours (Table) 01/01/22 01/01/22 01/02/22 Range/Units 16:11 19:20 05:47 POC Glucose (mg/dL) 198 H 213 H 211 H (70-110) mg/dL Assessment and Plan (1) Status post lumbar spinal fusion Narrative/Plan: She will continue with routine postop orthopedic protocol including pain management, wound care, PT, DVT prophylaxis and medical management. Expect that she will transfer to home in next 1-2 days Current Visit: Yes Status: Acute Priority: Medium Code(s): Z98.1 - A RTHRODESIS STATUS SNOMED Code(s): 21615875007580 Time with Patient: Less than 30
--- NOTE | 2022-01-02 13:43 | P.PN ---
Subjective Progress Note Date: 01/02/22 patient is 41-year-old lady with past medical history of spinal stenosis, degenerative disc disease, lower extremity radiculopathy presented to the hospital for elective procedure, patient underwent laminectomy and decompression of L4 L5-S1. Patient underwent the procedure well, patient had 500 mL of blood loss with 125 mL given back to Cell [facility]. Patient was seen in room 477 for medical consultation. Currently patient is complaining of back pain, patient currently on IV and oral pain medications, pain management has been consulted. 01/02/22. Patient seen and examined continues to have back pain. States medications are not working for her. Because of pain, her heart rate is elevated. EKG done overnight shows sinus tach. Denies any shortness of breath. Denies chest pain REVIEW OF SYSTEMS: CONSTITUTIONAL: No fever, no malaise,. CARDIOVASCULAR: No chest pain, no palpitations, no syncope. PULMONARY: No shortness of breath, no cough, GASTROINTESTINAL: No diarrhea, no nausea, no vomiting, no abdominal pain. NEUROLOGICAL: No headaches, no weakness, PHYSICAL EXAMINATION: GENERAL: The patient is alert and oriented x3, not in any acute distress. Well developed, well nourished. HEENT: Pupils are round and equally reacting to light. EOMI. No scleral icterus. No conjunctival pallor. Normocephalic, atraumatic. No pharyngeal erythema. No thyromegaly. CARDIOVASCULAR: S1 and S2 present. Tachycardic No murmurs, rubs, or gallops. PULMONARY: Chest is clear to auscultation, no wheezing or crackles. ABDOMEN: Soft, nontender, nondistended, normoactive bowel sounds. No palpable organomegaly. MUSCULOSKELETAL: No joint swelling or deformity. EXTREMITIES: No cyanosis, clubbing, or pedal edema. NEUROLOGICAL: Gross neurological examination did not reveal any focal deficits. SKIN: Lumbar area surgical incision seen Assessment and plan Postoperative day #2 status post minimally invasive decompression and fusion L4 5 L5-S1 for spondylolisthesis with spinal stenosis and lower extremity radiculopathy History of substance issues on chronic Suboxone Insulin-dependent diabetes mellitus. Hypothyroidism Plan; Continue telemetry monitoring. Will start patient on low-dose Lopressor Continue pain management per neurosurgery Continue DVT prophylaxis per neurosurgery Continue current insulin regimen Continue Synthroid PT and OT evaluation pain management consulted DVT prophylaxis: Objective - Vital Signs Vital signs: Vital Signs Temp 97.9 F 01/02/22 08:00 Pulse 122 H 01/02/22 08:00 Resp 17 01/02/22 08:00 BP 133/76 01/02/22 08:00 Pulse Ox 100 01/02/22 08:00 FiO2 Intake & Output 01/01/22 01/02/22 01/02/22 18:59 06:59 18:59 Output Total 1650 700 200 Balance -1650 -700 -200 Output: Urine 1650 700 200 Other: Voiding Method Indwelling Catheter Toilet # Voids 5 2 - Labs CBC & Chem 7: 01/01/22 10:03 01/01/22 10:03 Labs: Abnormal Lab Results - Last 24 Hours (Table) 01/01/22 01/01/22 01/02/22 Range/Units 16:11 19:20 05:47 POC Glucose (mg/dL) 198 H 213 H 211 H (70-110) mg/dL
[2022-01-02] MEDS: PROPRANOLOL 10 MG TAB PO SCH ×2 (14:16→20:51)
[2022-01-02 16:54] LABS: Glucose,Whole Blood 169 mg/dL (70-110)
[2022-01-02 20:32] LABS: Glucose,Whole Blood 155 mg/dL (70-110)
[2022-01-02] MEDS: DOXEPIN 25 MG CAP PO SCH (20:51)
[2022-01-02] MEDS: INSULIN DETEMIR (LEVEMIR) 100 UNIT/ML SYR SQ SCH (22:15)
[2022-01-03] MEDS: HYDROcodone/APAP 7.5-325MG 1 EACH TAB PO PRN ×2 (03:54→12:46)
[2022-01-03 06:16] LABS: Glucose,Whole Blood 103 mg/dL (70-110)
[2022-01-03] MEDS: INSULIN ASPART (NovoLOG) 100 UNIT/ML VIAL SQ SCH ×3 (06:18→17:26)
[2022-01-03] MEDS: PANTOPRAZOLE 40 MG TABLET PO SCH ×2 (06:20→16:57)
[2022-01-03] MEDS: LEVOTHYROXINE 75 MCG TAB PO SCH (06:20)
[2022-01-03] MEDS: HYDROmorphone 1 MG/ML 1 ML SYRINGE IVP PRN (06:20)
[2022-01-03] MEDS: OLANZapine 10 MG TAB PO SCH (09:13)
[2022-01-03] MEDS: DAPAGLIFLOZIN PROPANEDIOL 10 MG TABLET PO SCH (09:13)
[2022-01-03] MEDS: ATORVASTATIN 40 MG TAB PO SCH (09:13)
[2022-01-03] MEDS: TOPIRAMATE 100 MG TAB PO SCH (09:13)
[2022-01-03] MEDS: busPIRone HCl 10 MG TAB PO SCH ×2 (09:13→16:57)
[2022-01-03] MEDS: SENNOSIDES-DOCUSATE SODIUM 1 EACH TAB PO SCH (09:13)
[2022-01-03] MEDS: GABAPENTIN 400 MG CAP PO SCH ×2 (09:13→16:57)
[2022-01-03] MEDS: VARENICLINE 1 MG TAB PO SCH (09:14)
[2022-01-03] MEDS: PROPRANOLOL 10 MG TAB PO SCH ×2 (09:14→16:57)
[2022-01-03] MEDS: CYCLOBENZAPRINE 10 MG TAB PO PRN (09:25)
[2022-01-03 10:01] LABS: Basophils % (A) 0 %; Eosinophils # (A) 0.3 k/uL (0-0.7); Eosinophils % (A) 3 %; HCT 29.1 % (34.0-46.0); Lymphocytes # (A) 2.6 k/uL (1.0-4.8); Lymphocytes % (A) 28 %; MCHC 32.8 g/dL (31.0-37.0); MCV 85.4 fL (80.0-100.0); Mean Platelet Volume 8.5; Monocytes # (A) 0.4 k/uL (0-1.0); Monocytes % (A) 5 %; Neutrophils # (A) 5.7 k/uL (1.3-7.7); Neutrophils % (A) 62 %; Platelet Count 208 k/uL (150-450); RDW 14.9 % (11.5-15.5); WBC 9.2 k/uL (3.8-10.6)
[2022-01-03 10:05] LABS: HGB 9.5 gm/dL (11.4-16.0)
[2022-01-03] MEDS: LACTATED RINGERS 1,000 ML IV SCH (10:09)
[2022-01-03] MEDS: NON FORMULARY DRUG (Buprenorphine Hcl/Naloxone Hcl [Suboxone 8 Mg-2 Mg Sl Film] 1 EACH Fil SUBLINGUAL SCH ×2 (10:10→17:26)
[2022-01-03 10:15] LABS: African American GFR (CKD) >90 (>60 ml/min/1.73 sqM); Anion Gap 9 mmol/L; Blood Urea Nitrogen 10 mg/dL (7-17); Carbon Dioxide 20 mmol/L (22-30); Chloride 108 mmol/L (98-107); Glucose 181 mg/dL (74-99); Non-African American GFR(CKD) >90 (>60 ml/min/1.73 sqM); Potassium 3.2 mmol/L (3.5-5.1); Sodium 137 mmol/L (137-145)
[2022-01-03] MEDS ORDERED: POTASSIUM CHLORIDE ER 20 MEQ TAB.ER PO STA (11:08)
[2022-01-03 11:25] LABS: Glucose,Whole Blood 170 mg/dL (70-110)
--- NOTE | 2022-01-03 13:59 | P.DS ---
Providers Date of admission: 01/02/22 07:10 Expected date of discharge: 01/03/22 Attending physician: Iesha Eng Consults: 12/31/21 15:39 Consult Physician Routine Consulting Provider: Svetlana Bush Consult Reason/Comments: Medical management Do you want consulting provider notified?: Yes Primary care physician: Kayleen Leon Charbal - Discharge Diagnosis(es) (1) Status post lumbar spinal fusion Patient was admitted to the OR on 12/31/21 to undergo L4-S1 decompression and fusion. She had failed conservative measures as an outpatient and desired to proceed with elective surgery after given informed consent. She underwent the above procedure which she tolerated well without complication. Postoperative hospital course has remained without complication. On day of discharge she is afebrile, vital signs stable, labs within acceptable ranges, tolerating by mouth meds and diet, voiding without difficulty, positive flatus, denies abdominal pain or calf pain, pain is controlled on oral pain medication and has no new complaints. Wound is benign, neurovascular status is intact, calves are soft and nontender, abdomen soft and nontender. Review of systems is negative for numbness, tingling, fever, chills, chest pain, shortness of breath, nausea, vomiting, dizziness, headaches, slurred speech or other. Current Visit: Yes Status: Acute Priority: Medium Procedures: L4-S1 decompression/fusion Patient Condition at Discharge: Good Plan - Discharge Summary Discharge Rx Participant: No New Discharge Prescriptions: New Docusate [Colace] 100 mg PO BID #60 capsule HYDROcodone/APAP 7.5-325MG [Union 7.5-325] 1 - 2 each PO Q6HR PRN #42 tab PRN Reason: Pain No Action Topiramate [Topamax] 200 mg PO BID Rizatriptan Odt [Maxalt TOOTH CLERK] 10 mg PO BID PRN PRN Reason: Migraine Headache Pantoprazole Sodium [Protonix] 40 mg PO QAM OLANZapine [ZyPREXA] 10 mg PO QAM Levothyroxine Sodium [Synthroid] 75 mcg PO QAM Gabapentin 1,200 mg PO TID Doxepin HCl 50 mg PO HS Buprenorphine HCl/Naloxone HCl [Suboxone 8 mg-2 mg Sl Film] 1 film SL TID Atorvastatin [Lipitor] 40 mg PO QAM Phentermine HCl [Adipex-P] 37.5 mg PO QAM busPIRone HCl [Buspar] 10 mg PO TID Insulin Glargine,Hum.rec.anlog [Lantus Solostar Pen] 60 unit SQ HS Insulin Aspart [NovoLOG] 16 unit SQ AC-TID Dapagliflozin Propanediol [Farxiga] 10 mg PO QAM hydrOXYzine HCL [Atarax] 100 mg PO Q6H PRN PRN Reason: Anxiety Propranolol [Inderal] 10 mg PO TID PRN PRN Reason: MIGRAINES Varenicline [Chantix Starter Pack] 1 mg PO DAILY Discharge Medication List Atorvastatin [Lipitor] 40 mg PO QAM 02/08/20 [History] Buprenorphine HCl/Naloxone HCl [Suboxone 8 mg-2 mg Sl Film] 1 film SL TID 02/08/20 [History] Doxepin HCl 50 mg PO HS 02/08/20 [History] Gabapentin 1,200 mg PO TID 02/08/20 [History] Levothyroxine Sodium [Synthroid] 75 mcg PO QAM 02/08/20 [History] OLANZapine [ZyPREXA] 10 mg PO QAM 02/08/20 [History] Pantoprazole Sodium [Protonix] 40 mg PO QAM 02/08/20 [History] Rizatriptan Odt [Maxalt TOOTH CLERK] 10 mg PO BID PRN 02/08/20 [History] Topiramate [Topamax] 200 mg PO BID 02/08/20 [History] Phentermine HCl [Adipex-P] 37.5 mg PO QAM 09/02/20 [History] Dapagliflozin Propanediol [Farxiga] 10 mg PO QAM 02/18/21 [History] busPIRone HCl [Buspar] 10 mg PO TID 02/18/21 [History] Insulin Aspart [NovoLOG] 16 unit SQ AC-TID 12/29/21 [History] Insulin Glargine,Hum.rec.anlog [Lantus Solostar Pen] 60 unit SQ HS 12/29/21 [History] Propranolol [Inderal] 10 mg PO TID PRN 12/29/21 [History] Varenicline [Chantix Starter Pack] 1 mg PO DAILY 12/29/21 [History] hydrOXYzine HCL [Atarax] 100 mg PO Q6H PRN 12/29/21 [History] Docusate [Colace] 100 mg PO BID #60 capsule 01/03/22 [Rx] HYDROcodone/APAP 7.5-325MG [Union 7.5-325] 1 - 2 each PO Q6HR PRN #42 tab 01/03/22 [Rx] Follow up App[facility]ment([facility] - As Needed Iesha Eng DO [Doctor of Osteopathic Medicine] - 1 Week Activity/Diet/Wound Care/Special Instructions: take meds as directed f/u in office keep wound clean and dry Discharge Disposition: HOME SELF-CARE
--- NOTE | 2022-01-03 14:11 | P.PN ---
Subjective Progress Note Date: 01/03/22 patient is 41-year-old lady with past medical history of spinal stenosis, degenerative disc disease, lower extremity radiculopathy presented to the hospital for elective procedure, patient underwent laminectomy and decompression of L4 L5-S1. Patient underwent the procedure well, patient had 500 mL of blood loss with 125 mL given back to Cell [employer]. Patient was seen in room 477 for medical consultation. Currently patient is complaining of back pain, patient currently on IV and oral pain medications, pain management has been consulted. 01/02/22. Patient seen and examined continues to have back pain. States medications are not working for her. Because of pain, her heart rate is elevated. EKG done overnight shows sinus tach. Denies any shortness of breath. Denies chest pain 01/03. Patient seen and examined. States back pain has improved. Came to go home today REVIEW OF SYSTEMS: CONSTITUTIONAL: No fever, no malaise,. CARDIOVASCULAR: No chest pain, no palpitations, no syncope. PULMONARY: No shortness of breath, no cough, GASTROINTESTINAL: No diarrhea, no nausea, no vomiting, no abdominal pain. NEUROLOGICAL: No headaches, no weakness, PHYSICAL EXAMINATION: GENERAL: The patient is alert and oriented x3, not in any acute distress. Well developed, well nourished. HEENT: Pupils are round and equally reacting to light. EOMI. No scleral icterus. No conjunctival pallor. Normocephalic, atraumatic. No pharyngeal erythema. No thyromegaly. CARDIOVASCULAR: S1 and S2 present. Tachycardic No murmurs, rubs, or gallops. PULMONARY: Chest is clear to auscultation, no wheezing or crackles. ABDOMEN: Soft, nontender, nondistended, normoactive bowel sounds. No palpable organomegaly. MUSCULOSKELETAL: No joint swelling or deformity. EXTREMITIES: No cyanosis, clubbing, or pedal edema. NEUROLOGICAL: Gross neurological examination did not reveal any focal deficits. SKIN: Lumbar area surgical incision seen Assessment and plan Postoperative day #2 status post minimally invasive decompression and fusion L4 5 L5-S1 for spondylolisthesis with spinal stenosis and lower extremity radiculopathy History of substance issues on chronic Suboxone Insulin-dependent diabetes mellitus. Hypothyroidism Plan; Continue telemetry monitoring. Continue propranolol Continue pain management per neurosurgery Continue DVT prophylaxis per neurosurgery Continue current insulin regimen Continue Synthroid PT and OT evaluation pain management consulted DVT prophylaxis: Objective - Vital Signs Vital signs: Vital Signs Temp 98.0 F 01/03/22 08:00 Pulse 103 H 01/03/22 08:00 Resp 18 01/03/22 08:00 BP 111/76 01/03/22 08:00 Pulse Ox 97 01/03/22 08:33 FiO2 Intake & Output 01/02/22 01/03/22 01/03/22 18:59 06:59 18:59 Intake Total 600 240 Output Total 400 Balance 200 240 Intake: Oral 600 240 Output: Urine 400 Other: Voiding Method Toilet Toilet # Voids 2 2 - Labs CBC & Chem 7: 01/03/22 09:32 01/03/22 09:32 Labs: Abnormal Lab Results - Last 24 Hours (Table) 01/02/22 01/02/22 01/03/22 Range/Units 16:52 20:31 09:32 RBC 3.40 L (3.80-5.40) m/uL Hgb 9.5 L D (11.4-16.0) gm/dL Hct 29.1 L (34.0-46.0) % Potassium (3.5-5.1) mmol/L Chloride (98-107) mmol/L Carbon Dioxide (22-30) mmol/L Glucose (74-99) mg/dL POC Glucose (mg/dL) 169 H 155 H (70-110) mg/dL Calcium (8.4-10.2) mg/dL 01/03/22 01/03/22 Range/Units 09:32 11:23 RBC (3.80-5.40) m/uL Hgb (11.4-16.0) gm/dL Hct (34.0-46.0) % Potassium 3.2 L (3.5-5.1) mmol/L Chloride 108 H (98-107) mmol/L Carbon Dioxide 20 L (22-30) mmol/L Glucose 181 H (74-99) mg/dL POC Glucose (mg/dL) 170 H (70-110) mg/dL Calcium 8.0 L (8.4-10.2) mg/dL
[2022-01-03 14:30] VITALS: BP 106/68; PULSE 96; RESP 16; TEMP 98.1
[2022-01-03] MEDS: SODIUM CHLORIDE 0.9% 1,000 ML IV SCH (14:37)
[2022-01-03 16:56] LABS: Glucose,Whole Blood 232 mg/dL (70-110)
== END 2022-01-03 18:23 | disposition home or self-care (01) | DRG 460 ==
LOC: OR 10:18 → 4SSUR 15:40 → OR 01-02 07:10 → 4SSUR 01-02 07:10
PROVIDERS: ADMIT Orthopaedic Surgery Orthopaedic Surgery of the Spine; ATTEND Orthopaedic Surgery Orthopaedic Surgery of the Spine
PROC: 0SG00AJ Fusion of Lumbar Vertebral Joint with Interbody Fusion Device, Posterior Approach, Anterior Column, Open Approach (ICD-10-PCS; 2021-12-31)
PROC: 0SG30AJ Fusion of Lumbosacral Joint with Interbody Fusion Device, Posterior Approach, Anterior Column, Open Approach (ICD-10-PCS; 2021-12-31)
PROC: 0ST20ZZ Resection of Lumbar Vertebral Disc, Open Approach (ICD-10-PCS; 2021-12-31)
PROC: 0ST40ZZ Resection of Lumbosacral Disc, Open Approach (ICD-10-PCS; 2021-12-31)
PROC: 0QU007Z Supplement Lumbar Vertebra with Autologous Tissue Substitute, Open Approach (ICD-10-PCS; 2021-12-31)
PROC: 30233H0 Transfusion of Autologous Whole Blood into Peripheral Vein, Percutaneous Approach (ICD-10-PCS; 2021-12-31)
PROC: 01NB0ZZ Release Lumbar Nerve, Open Approach (ICD-10-PCS; principal; 2021-12-31 11:45)
DX: M43.16 Spondylolisthesis, lumbar region (principal); F11.20 Opioid dependence, uncomplicated; M43.17 Spondylolisthesis, lumbosacral region; E11.42 Type 2 diabetes mellitus with diabetic polyneuropathy; E03.9 Hypothyroidism, unspecified; M48.061 Spinal stenosis, lumbar region without neurogenic claudication; M51.36 Other intervertebral disc degeneration, lumbar region; M47.26 Other spondylosis with radiculopathy, lumbar region; M48.062 Spinal stenosis, lumbar region with neurogenic claudication; E78.5 Hyperlipidemia, unspecified; G89.29 Other chronic pain; F41.9 Anxiety disorder, unspecified; R00.0 Tachycardia, unspecified; Z79.4 Long term (current) use of insulin; Z79.890 Hormone replacement therapy; Z79.899 Other long term (current) drug therapy; Z79.84 Long term (current) use of oral hypoglycemic drugs; Z86.16 Personal history of COVID-19; Z86.711 Personal history of pulmonary embolism; Z87.01 Personal history of pneumonia (recurrent); Z87.891 Personal history of nicotine dependence; Z28.310 Unvaccinated for COVID-19
CPT/HCPCS: 72100; 80048; 85025; 86850; 86900; 86901; 87070; 93005; 94760

== ENCOUNTER → 2023-01-25 | Outpatient (CLI) | payer MEDICARE, BC ==
--- NOTE | 2023-01-27 08:40 | MM ---
Reason for Exam: Screening (asymptomatic). Last mammogram was performed 1 year(s) and 4 month(s) ago. Patient History: Menarche at age 10. First Full-Term at age 23. Left ovary removed at age 24. Right ovary removed at age 24. Hysterectomy at age 24. Postmenopausal. Patient has history of breast feeding. Estrogen for 1 year from age 24 until age 24. Patient used Hormonal Contraceptives for 2 years. Risk Values: Flory 5 year model risk: 0.9%. NCI Lifetime model risk: 10.7%. Prior Study Comparison: 03/20/2019 Bilateral Diagnostic Mammogram, [facility]. 08/16/2020 Bilateral Screening Mammogram, [facility]. 10/06/2021 Bilateral MG 3D screening mammo w/cad, [facility]. Tissue Density: There are scattered fibroglandular densities. Findings: Analyzed By CAD. There is no suspicious group of microcalcifications or new suspicious mass in either breast. Overall Assessment: Negative, BI-RAD 1 Management: Screening Mammogram of both breasts in 1 year. . Patient should continue monthly self-breast exams. A clinical breast exam by your physician is recommended on an annual basis. This exam should not preclude additional follow-up of suspicious palpable abnormalities. Note on Flory scores and lifetime risk: 1. A Flory score greater than 3% is considered moderate risk. If this is the case, consider specialist referral to assess eligibility for a risk reducing agent. 2. If overall lifetime risk for the development of breast cancer is 20% or higher, the patient may qualify for future screening with alternating mammogram and breast MRI. Electronically signed and approved by: Saul Dixon M.D. Radiologis
== END | disposition home or self-care (01) ==
LOC: RADMAMWWP 14:50
PROVIDERS: ATTEND Family Medicine
DX: Z12.31 Encounter for screening mammogram for malignant neoplasm of breast (principal); Z78.0 Asymptomatic menopausal state
CPT/HCPCS: 77063; 77067

== ENCOUNTER → 2023-02-22 | Outpatient (CLI) | payer MEDICARE, BC ==
[2023-02-22 09:11] LABS: INR 0.9 (<1.2); Partial Thromboplastin Time 24.7 sec (22.0-30.0); Prothrombin Time 10.4 sec (10.0-12.5)
[2023-02-22 11:08] LABS: HCT 36.6 % (37.2-46.3); HGB 11.8 g/dL (12.0-15.0); MCH 26.7 pg (27.0-32.0); MCHC 32.2 g/dL (32.0-37.0); MCV 82.8 FL (80.0-97.0); Mean Platelet Volume 10.6 FL (9.5-12.2); NRBC Per 100 WBC 0 X 10*3/uL (0.00-0.01); Platelet Count 311 X 10*3/uL (140-440); RBC 4.42 X 10*6/uL (4.10-5.20); RDW 15.9 % (11.5-14.5); WBC 8.14 X 10*3/uL (4.50-10.00)
[2023-02-22 11:25] LABS: ALT 16 U/L (8-44); AST 12 U/L (13-35); Albumin 4.3 g/dL (3.8-4.9); Albumin/Globulin Ratio 1.65 Ratio (1.60-3.17); Alkaline Phosphatase 121 U/L (41-126); BUN/Creat Ratio 17.57 Ratio (12.00-20.00); Blood Urea Nitrogen 12.3 mg/dL (9.0-27.0); Calcium 9.7 mg/dL (8.7-10.3); Carbon Dioxide 22.2 mmol/L (21.6-31.8); Chloride 104 mmol/L (96-109); Globulin 2.6 g/dL (1.6-3.3); Glucose 153 mg/dL (70-110); Sodium 141 mmol/L (135-145); Total Bilirubin 0.3 mg/dL (0.3-1.2); Total Protein 6.9 g/dL (6.2-8.2)
== END | disposition home or self-care (01) ==
LOC: LABPAT 08:08
PROVIDERS: ATTEND Orthopaedic Surgery
DX: Z01.818 Encounter for other preprocedural examination (principal); M17.12 Unilateral primary osteoarthritis, left knee; R00.1 Bradycardia, unspecified; Z22.322 Carrier or suspected carrier of Methicillin resistant Staphylococcus aureus
CPT/HCPCS: 80053; 85027; 85610; 85730; 87070; 93005

== ENCOUNTER 2023-03-22 06:32 | Day surgery (SDC) | payer MEDICARE, BC ==
[~2023-03-22 06:32] MED LIST changes: -DEXAMETHASONE SOD PHOSPHATE 4 MG/ML 1 ML VIAL IV ONE; +LIDOCAINE 1% (10MG/ML) FOR IV START INTRADERMA PRN; -MIDAZOLAM 2 MG/2 ML VIAL IV PRN; -SCOPOLAMINE 1 MG/72 HR PATCH TRANSDERM ONE; +TRANEXAMIC 1,000 MG/100ML-NACL 1,000 MG in SALINE 1 100ML.BAG IVPB PRN; -VANCOMYCIN 1,500 MG in SODIUM CHLORIDE 0.9% 500 ML 500 ML IVPB PRN; -ceFAZolin 1,000 MG in SODIUM CHLORIDE 0.9% IRRIGATIO 1,000 ML IRRIGATION PRN
[2023-03-22 07:14] LABS: Glucose,Whole Blood 121 mg/dL (70-110)
[2023-03-22] MEDS: LACTATED RINGERS 1,000 ML IV SCH (07:18)
[2023-03-22] MEDS: MELOXICAM 7.5 MG TAB PO PRN (07:18)
[2023-03-22] MEDS: ACETAMINOPHEN TAB 500 MG TAB PO PRN (07:18)
[2023-03-22] MEDS: GABAPENTIN 300 MG CAP PO PRN (07:18)
[2023-03-22] MEDS: DEXAMETHASONE SOD PHOSPHATE 4 MG/ML 1 ML VIAL IVP ONE (07:19)
[2023-03-22] MEDS: MIDAZOLAM 2 MG/2 ML VIAL IVP ONE (07:22)
[2023-03-22] MEDS: VANCOMYCIN 1,500 MG in SODIUM CHLORIDE 0.9% 500 ML 500 ML IVPB PRN (07:35)
[2023-03-22] MEDS ORDERED: MIDAZOLAM 2 MG/2 ML VIAL ONE (07:56)
[2023-03-22] MEDS ORDERED: PROPOFOL 10 MG/ML 20 ML VIAL IV ONE (07:56)
[2023-03-22] MEDS ORDERED: fentaNYL (PF) 50 MCG/ML 2 ML AMP ONE (07:56)
[2023-03-22] MEDS ORDERED: ROPIVACAINE 5 MG/ML 30 ML VIAL ONE (07:56)
[2023-03-22] MEDS ORDERED: TRANEXAMIC 1,000 MG/100ML-NACL PREMIX BAG ONE (07:56)
[2023-03-22] MEDS ORDERED: SODIUM CHLORIDE 0.9% (PF) 10 ML VIAL ONE (07:56)
[2023-03-22] MEDS ORDERED: KETAMINE HCL IN 0.9 % NACL 50 MG/5 ML SYRINGE ONE (07:56)
--- NOTE | 2023-03-22 08:39 | P.ANPRN ---
Procedure Note - Anesthesia - Nerve Block Performed Left Adductor Canal Infusion Time Out Performed: Yes (721) Date of Procedure: 03/22/23 Location of Patient: PreOp Indication: Acute Post-Operative Pain, Dx/Pain Location (Left knee), Requested by Surgeon Specifically requested for management of pain by : Austen Alcaraz Sedation Type: Sedate with meaningful contact maintained Preparation: Sterile Prep, Sterile Dressing Position: Supine Catheter: Indwelling Needle Types: Pajunk Needle Gauge: 18 Ultrasound used to visualize needle placement: Yes Ultrasound used to observe medication spread: Yes Injectate: 0.5% Ropivacaine (see comment for volume) (20 mL +10 mL of normal saline) Blood Aspirated: No Pain Paresthesia on Injection Noted: No Resistance on Injection: Normal Image Stored and Saved: Yes Events: Uneventful and Well Tolerated Left iPack Single Time Out Performed: Yes (721) Date of Procedure: 03/22/23 Location of Patient: PreOp Indication: Acute Post-Operative Pain, Dx/Pain Location (Left knee), Requested by Surgeon Specifically requested for management of pain by DrNelia: Austen Alcaraz Sedation Type: Sedate with meaningful contact maintained Preparation: Sterile Prep Position: Right Lateral Catheter: None Needle Types: Pajunk Needle Gauge: 21 Ultrasound used to visualize needle placement: Yes Ultrasound used to observe medication spread: Yes Injectate: 0.5% Ropivacaine (see comment for volume) (3 mL +10 mL of normal saline) Blood Aspirated: No Pain Paresthesia on Injection Noted: No Resistance on Injection: Normal Image Stored and Saved: Yes Events: Uneventful and Well Tolerated
--- NOTE | 2023-03-22 09:09 | P.OP ---
Date of Procedure: 03/22/23 Preoperative Diagnosis: Severe Osteoarthritis left knee Postoperative Diagnosis: Severe osteoarthritis left knee Procedure(s) Performed: Left total knee arthroplasty Implants: Garcia [employer] Nephew Journey II CR Oxinium cruciate retaining femoral component size 5, left [employer]hew Journey nonporous tibial baseplate size 3, left [employer]hew Journey II, XLPE Deep Dished articular insert, size 9 mm, Size 3- 4, left [employer] Journey Felecia II resurfacing patellar component, oval, 32 mm All components were cemented using Palacos R bone cement The articulation is Oxinium on polyethylene Anesthesia: spinal Surgeon: Austen Alcaraz Medical Detail Representative #1: Diane Beltran Estimated Blood Loss (ml): 30 Pathology: none sent Condition: stable Disposition: PACU Indications for Procedure: The patient's knee is end-stage, and conservative management has failed. The operation of knee replacement has been discussed at length in the office, as well as potential risks and complications. These are inclusive of, but not limited to: Infection, bleeding, scarring, discomfort, stiffness, blood vessel and nerve damage, need for further surgery, failure to relieve symptoms, persistence, recurrence, or worsening of problems, loosening, dislocation, wear, blood clot, pulmonary embolism, , gait dysfunction, stiffness, and other risks as discussed in the office. Patient elects to proceed and the consent form has been signed. Operative Findings: The operative findings are consistent with severe osteoarthritis of the left knee Description of Procedure: The patient was seen in the preoperative area, the consent was reviewed and the operative site was marked with a skin marker. The patient verified the procedure and the operative site. An adductor canal pain catheter and an iPACK block were placed by anesthesia in the preoperative area. The patient was then brought to the operating room and positioned on the operating room table in the supine position. Preoperative antibiotics and a gram of tranexamic acid were given intravenously. A spinal anesthetic was administered by the anesthesia department. Care was taken to make sure that all pressure points were adequately padded. A tourniquet was placed on the upper thigh and the lower extremity was prepped with ChloraPrep and draped in usual sterile fashion. A universal time-out was then performed which confirmed the patient's name, surgical site, ALLERGIES, and consent. The lower extremity was then exsanguinated and tourniquet was inflated to 250 mmHg. A standard anterior midline approach to the knee was performed. The skin and subcutaneous tissue were sharply dissected down to the patellar tendon. A medial parapatellar arthrotomy was then performed. The knee was then extended, the patellar was everted, and the knee was flexed. The infra-patellar fat pad was removed in order to enhance exposure. The anterior horns of both menisci were excised, and a release was performed to the posterior medial aspect of the knee. On gross visual inspection, there was complete loss of articular cartilage in the medial and patellofemoral joint spaces. There was also significant cartilage damage in the lateral compartment. There were multiple periarticular osteophytes globally about the knee which were then removed with a Ronguer. The femoral canal was then opened with the 9.5 mm intramedullary drill. The 8 mm intramedullary uriah was then inserted into the femoral canal with the distal femoral cutting guide set for 5 of valgus. The distal femoral cutting block was then pinned in place. The intramedullary uriah was then removed, and the distal femur was then cut. The cutting block was then removed and the cut was checked for symmetry. The resected bone was then measured to confirm the appropriate distal femoral resection. Next, the sizing guide was then placed and set for 3 external rotation based off of the epicondylar axis and Pierson's line. Pins were then placed and the drill holes, and the femur was sized with the sizing stylus. The pins were then removed, and the sizing guide was then removed. The spikes of the appropriate size femoral block was then placed into the predrilled holes, and malleted into place. Two 45 mm pins were then placed into the fixation holes on the cutting block. An lety wing was then used to ensure there would be no notching with the anterior cut. The anterior condyles were cut without notching. The anterior chord cut was then performed, followed by the posterior cut, posterior chamfer cut, and the anterior chamfer cut. The collateral ligaments were protected during the entire process. The cutting block was then removed. Any remaining bone and osteophytes were removed from the femur with a Ronguer. Attention was then directed to the tibia. The remaining ACL was removed with a Ronguer, and the tibia was then gently subluxed forward with a large bent knee retractor. Any remaining menisci were excised. The posterior lateral corner was cauterized in order to coagulate the lateral geniculate artery. The extra medullary tibial cutting guide was then placed, set for the appropriate rotation, slope, and depth of resection. The proximal tibia cutting guide was then pinned in place. Proximal tibia was then cut and sized. A curved osteotome was then used to remove any posterior osteophytes from the distal femur. The femoral trial was placed. A narrow saw blade was then used to remove the anterior intracondylar femoral bone. The CR notch trial was then placed. The tibial trial was placed with the appropriate-sized insert. The knee was able to fully extend and flex to 130 and was stable throughout all range of motion. The knee was then extended and the patella was everted. Patella was then measured, and then using an osteotomy guide, the patella was cut at the appropriate level. The patellar component was sized. The patellar drill guide was placed and the patella was drilled. The patella trial was then placed. The knee was then taken through range of motion with the patella trial and the patella tracked normally using the no thumbs technique. The patella trial was then removed. The knee was then flexed and lug holes were drilled through the femoral trial and the femoral trial was then removed. The tibial was then re- exposed, and the tibial broach guide was then pinned in place after it was set for the appropriate rotation to allow for the most coverage without overhang. The tibia was then reamed and broached. The femoral canal was plugged with autologous bone. The cut surfaces of bone were then irrigated with pulsatile lavage. The knee was also irrigated with Irrisept solution. The components were then opened, the cement was mixed. Cement was placed on the backside of the femoral, tibial, and patellar components. Cement was then applied to the tibial surface and pressurized into the surface using finger pressurization technique. The tibial component was then applied and excess cement was removed after it was impacted securely noted to be flush with the cut surface. In similar fashion, the cement was applied to the cut femoral surface, pressuri zed and using finger pressurization the component was impacted in place. Excess cement was removed. The polyethylene spacer was then implanted and locked into position. Patellar component was then applied in a similar technique and the patellar clamp was used to hold patella in place while the cement hardened. The knee was held in full extension while the cement hardened. Once the cement had fully hardened, the knee was reinspected. Any other cement extrusion was removed the final range of motion testing showed range of motion from 0-130 with excellent stability, both medial and laterally and appropriate alignment of the leg. Patella tracked normally. After the cemented hardened, the tourniquet was released and hemostasis was obtained. A second gram of transexamic acid was given intravenously. The knee was again irrigated. The knee was again taken through range of motion and found to be stable throughout all range of motion of 0-130, and the patella tracked normally. The fascia was then closed with 0 Vicryl followed by #2 strata fix suture. The subcutaneous tissue was closed with 3-0 Vicryl and 3-0 strata fix. Exofin glue was used for the skin and placed with the knee in flexion. After the glue had dried, and Optafoam silver impregnated dressing was applied. A lightly compressive dressing was applied using web roll and Pb wrap. Patient was then transferred to the stretcher and taken to recovery room in stable condition. Sponge and needle counts were correct. The financial assistant KELLI Garcia was required due the complexity surgery and the need for a skilled team assistant. She assisted in positioning, draping, retraction, and closure of the wound.
[2023-03-22] MEDS ORDERED: HYDROmorphone 0.5 MG/0.5 ML SYRINGE IVP PRN (09:39)
[2023-03-22] MEDS ORDERED: NA PHOS,M-B/NA PHOS,DI-BA 133 ML ENEMA RECTAL PRN (09:39)
[2023-03-22] MEDS ORDERED: MAGNESIUM HYDROXIDE 2,400 MG/30 ML CUP PO PRN (09:39)
[2023-03-22] MEDS ORDERED: NALOXONE 0.4 MG/ML 1 ML VIAL IV PRN (09:39)
[2023-03-22] MEDS ORDERED: diazePAM 5 MG TAB PO PRN (09:39)
[2023-03-22] MEDS ORDERED: bisacodyL 10 MG SUPP RECTAL PRN (09:39)
[2023-03-22] MEDS ORDERED: HYDROcodone/APAP 7.5-325MG 1 EACH TAB PO PRN (09:41)
[2023-03-22] MEDS: ROPIVACAINE 0.75% 1,100 MG, SODIUM CHLORIDE 0.9% 500 ML 403 ML, EMPTY PAIN BALL 1 EACH MISCELLANE PRN (10:00)
--- NOTE | 2023-03-22 10:32 | XR ---
EXAMINATION TYPE: XR knee limited LT DATE OF EXAM: 03/22/2023 10:10 AM CLINICAL INDICATION:Female, 43 years old with history of Evaluation for Postop abnormality and alignm ent; COMPARISON: 09/17/2018 TECHNIQUE: XR knee limited LT; examined in Frontal, lateral and oblique projections. FINDINGS: Status post total knee arthroplasty changes with hardware in appropriate alignment and in tact. No evidence of fracture. IMPRESSION: Status post total knee arthroplasty changes with hardware intact and appropriate alignment. No fractu res identified.
[2023-03-22 10:50] LABS: Glucose,Whole Blood 130 mg/dL (70-110)
[2023-03-22 12:03] LABS: Glucose,Whole Blood 150 mg/dL (70-110)
[2023-03-22] MEDS: HYDROmorphone 0.5 MG/0.5 ML SYRINGE IVP PRN (12:09)
[2023-03-22] MEDS: fentaNYL (PF) 50 MCG/ML 2 ML AMP IVP ONE (12:35)
[2023-03-22] MEDS: HYDROcodone/APAP 7.5-325MG 1 EACH TAB PO PRN (14:43)
[2023-03-22] MEDS: SODIUM CHLORIDE 0.9% 1,000 ML IV SCH (15:08)
[2023-03-22] MEDS: droPERidol 5 MG/2 ML VIAL IVP ONE (15:08)
[2023-03-22 16:18] LABS: Glucose,Whole Blood 158 mg/dL (70-110)
[2023-03-22] MEDS ORDERED: hydrOXYzine HCL 25 MG TAB PO PRN (16:27)
[2023-03-22] MEDS ORDERED: PROPRANOLOL 10 MG TAB PO PRN (16:27)
[2023-03-22] MEDS ORDERED: INSULIN DETEMIR (LEVEMIR) 100 UNIT/ML SYR SQ PRN (16:27)
[2023-03-22] MEDS: HYDROmorphone 1 MG/ML 1 ML SYRINGE IVP PRN (16:36)
[2023-03-22] MEDS ORDERED: SUMAtriptan succinate 50 MG TAB PO PRN (20:28)
[2023-03-22] MEDS ORDERED: DEXTROSE 50% SYRINGE 50 ML IVP PRN ×2 (20:31)
[2023-03-22 20:51] LABS: Glucose,Whole Blood 160 mg/dL (70-110)
--- NOTE | 2023-03-22 20:57 | P.CONS ---
History of Present Illness - Reason for Consult Consult date: 03/22/23 Medical management Requesting physician: Austen Alcaraz - Chief Complaint Left knee surgery - History of Present Illness This is a pleasant 43-year-old patient who follows with Dr. Patt Lopez. Chronic stable medical conditions include diabetes, GERD, , hyperlipidemia. Had COVID previously with multiple PEs. Bilateral neuropathy in lower extremity, chronic back pain, arthritis of multiple joints, IBS, hypothyroid, and previous drug addiction. Also history of bipolar/PTSD. Patient underwent left total knee arthroplasty. Some pain at operative site. No nausea vomiting. No chest pain. Laying in bed. Review of systems: GEN.: Tired EYES: None HEENT: None NECK: None RESPIRATORY: None CARDIOVASCULAR: None GASTROINTESTINAL: None GENITOURINARY: None MUSCULOSKELETAL: [Joint pain especially the operative site LYMPHATICS: None HEMATOLOGICAL: None PSYCHIATRY: Anxious e NEUROLOGICAL: None Social history: Lives with her and children. Smoked for many years 2 packs a day. For last 6 months down to about 1/4 pack a day. Also has picked up vaping. In the past patient has done methamphetamines and opiates. None since 2018. Used to also take Adderall. Stopped drinking alcohol 10 years ago. Physical examination: VITAL SIGNS: 97.3, 86, 19, 117/66, 97% room air GENERAL: BMI 34.5, reclining in bed awake slightly uncomfortable. EYES: Pupils equal. Conjunctiva savannah l. HEENT: External appearance of nose and ears normal, oral cavity grossly normal. NECK: JVD not raised; masses not palpable. HEART: First and second heart sounds are normal; no edema. LUNGS: Respiratory rate normal; clear to auscultation. ABDOMEN: Soft, nontender, liver spleen not palpable, no masses palpable. PSYCH: Alert and oriented x3; mood and affect anxious a l. MUSCULOSKELETAL:No Clubbing/cyanosis;muscles-grossly intact. Dressing over the left knee NEUROLOGICAL: Cranial nerves grossly intact; no facial asymmetry, power and sensation grossly intact. LYMPHATICS: No lymph nodes palpable in the axilla and neck INVESTIGATIONS, reviewed in the clinical context: February 22, 2023: White count 8.1 hemoglobin 11.8 platelets 311 sodium 141 potassium 4 creatinine 0.7 EKG tracing personally reviewed by me-February 22: Sinus rhythm Assessment plan: -Left total knee arthroplasty Eliquis resumed. Pain controlled. -Bipolar disorder BuSpar doxepin Zyprexa -Chronic nicotine dependence cigarette smoker Chantix -GERD Protonix -Hypothyroid Synthroid -Diabetes mellitus type 2 chronically insulin Start Levemir 20 units nightly. Accu-Cheks with sliding scale -Chronic pulm embolism Eliquis resumed -Chronic osteoarthritis multiple joints -Peripheral neuropathy -IBS -Chronic pain syndrome Suboxone Care was discussed with the patient question answered. Thank Dr. Alcaraz Past Medical History Past Medical History: Diabetes Mellitus, GERD/Reflux, Hyperlipidemia, Osteoarthritis (OA), Pneumonia, Pulmonary Embolus (PE) Additional Past Medical History / Comment(s): 01/26/21 covid pneumonia hospitalized at [facility]-multiple PE's, NIDDM type II, neuropathy bilateral feet/legs, past drug addiction, frequent migraines, chronic back pain, arthritis in multiple joints, IBS, hypothyroid, rhinitis. History of Any Multi-Drug Resistant Organisms: None Reported Past Surgical History: Appendectomy, Back Surgery, Cholecystectomy, Hysterectomy, Orthopedic Surgery Additional Past Surgical History / Comment(s): multiple L knee surgeries, colonoscopy/benign polypectomy, lumbar fusion 2021 Past Anesthesia/Blood Transfusion Reactions: No Reported Reaction Past Psychological History: ADD/ADHD, Anxiety, Bipolar, Depression, PTSD Additional Psychological History / Comment(s): Pt resides with her spouse and 3 children. 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 Smoking Status: Former smoker, Vaper Past Alcohol Use History: None Reported Additional Past Alcohol Use History / Comment(s): Pt started smoking in 1997 and quit 01/2021. started smoking again, ppweek, does vape Past Drug Use History: Methamphetamine, Opiates Additional Drug Use History / Comment(s): Pt has not used drugs since 2018 - Past Family History Father Family Medical History: No Reported History Additional Family Medical History / Comment(s): Father is healthy Mother Family Medical History: No Reported History Additional Family Medical History / Comment(s): Mother is healthy Family Family Medical History: No Reported History Medications and Allergies Home Medications Medication Instructions Recorded Confirmed Type Atorvastatin [Lipitor] 80 mg PO QAM 02/08/20 03/16/23 History Buprenorphine HCl/Naloxone HCl 1 film SL TID 02/08/20 03/16/23 History [Suboxone 8 mg-2 mg Sl Film] Doxepin HCl 50 mg PO HS 02/08/20 03/16/23 History Gabapentin 1,200 mg PO TID 02/08/20 03/16/23 History Levothyroxine Sodium [Synthroid] 75 mcg PO QAM 02/08/20 03/16/23 History OLANZapine [ZyPREXA] 10 mg PO QAM 02/08/20 03/16/23 History Pantoprazole Sodium [Protonix] 40 mg PO QAM 02/08/20 03/16/23 History Rizatriptan Odt [Maxalt GRINDER DRESSER] 10 mg PO BID PRN 02/08/20 03/16/23 History Topiramate [Topamax] 200 mg PO TID 02/08/20 03/16/23 History Dapagliflozin Propanediol [Farxiga] 10 mg PO QAM 02/18/21 03/16/23 History busPIRone HCl [Buspar] 10 mg PO TID 02/18/21 03/16/23 History Insulin Glargine,Hum.rec.anlog 40 unit SQ HS PRN 12/29/21 03/16/23 History [Lantus Solostar Pen] Propranolol [Inderal] 10 mg PO TID PRN 12/29/21 03/16/23 History Varenicline [Chantix Starter Pack] 1 mg PO BID 12/29/21 03/16/23 History hydrOXYzine HCL [Atarax] 100 mg PO Q6H PRN 12/29/21 03/16/23 History Tirzepatide [Mounjaro] 2.5 mg SQ TH 03/17/23 03/17/23 History Allergies Allergy/AdvReac Type Severity Reaction Status Date / Time lamotrigine [From Lamictal] Allergy tachycardia Verified 03/22/23 06:49 ,rash morphine Allergy Hallucinati Verified 03/22/23 06:49 ons ondansetron HCl Allergy Anaphylaxis Verified 03/22/23 06:49 [From Zofran (as hydrochloride)] prochlorperazine Allergy Anaphylaxis Verified 03/22/23 06:49 [From Compazine] terbutaline sulfate Allergy Anaphylaxis Verified 03/22/23 06:49 [From Brethine] magnesium sulfate Allergy Anaphylaxis Uncoded 03/22/23 06:49 Physical Exam Vitals: Vital Signs Temp Pulse Resp BP BP Pulse Ox 03/22/23 13:47 97.3 F L 86 19 117/66 97 03/22/23 13:20 87 16 111/68 98 03/22/23 13:00 80 16 111/63 96 03/22/23 12:30 83 16 111/68 96 03/22/23 12:00 87 16 112/71 95 03/22/23 11:30 77 16 113/77 95 03/22/23 11:00 81 16 111/73 95 03/22/23 10:45 80 16 115/75 100 03/22/23 10:30 79 16 115/74 100 03/22/23 10:15 80 16 108/71 99 03/22/23 10:00 80 16 116/71 100 03/22/23 09:45 81 16 110/68 99 03/22/23 09:37 97.0 F L 80 16 97/65 99 03/22/23 07:40 87 16 107/57 95 03/22/23 06:52 97.1 F L 63 16 133/81 97 Intake and Output 03/22/23 03/22/23 03/22/23 06:59 14:59 22:59 Intake Total 1550 Output Total 30 Balance 1520 Intake: IV 1550 Output: Estimated Blood Loss 30 Other: # Voids 5 Weight 103 kg 103 kg Results Labs: Abnormal Lab Results - Last 24 Hours (Table) 03/22/23 03/22/23 03/22/23 Range/Units 07:10 10:49 12:01 POC Glucose (mg/dL) 121 H 130 H 150 H (70-110) mg/dL 03/22/23 Range/Units 16:17 POC Glucose (mg/dL) 158 H (70-110) mg/dL
[2023-03-22] MEDS: GABAPENTIN 400 MG CAP PO SCH (21:08)
[2023-03-22] MEDS: SENNOSIDES-DOCUSATE SODIUM 1 EACH TAB PO SCH (21:08)
[2023-03-22] MEDS: TOPIRAMATE 100 MG TAB PO SCH (21:09)
[2023-03-22] MEDS: VARENICLINE 1 MG TAB PO SCH (21:09)
[2023-03-22] MEDS: busPIRone HCl 10 MG TAB PO SCH (21:09)
[2023-03-22] MEDS: NON FORMULARY DRUG (Buprenorphine Hcl/Naloxone Hcl [Suboxone 8 Mg-2 Mg Sl Film] 1 EACH Fil SUBLINGUAL SCH (21:09)
[2023-03-22] MEDS: DOXEPIN 25 MG CAP PO SCH (21:09)
[2023-03-22] MEDS: INSULIN DETEMIR (LEVEMIR) 100 UNIT/ML SYR SQ SCH (21:10)
[2023-03-22] MEDS: INSULIN ASPART (NovoLOG) 100 UNIT/ML VIAL SQ SCH (21:10)
[2023-03-23 05:58] LABS: Glucose,Whole Blood 185 mg/dL (70-110)
[2023-03-23] MEDS: LEVOTHYROXINE 75 MCG TAB PO SCH (06:28)
[2023-03-23 07:47] VITALS: BP 109/73; PULSE 100; RESP 17; TEMP 98.5
[2023-03-23] MEDS: PANTOPRAZOLE 40 MG TABLET PO SCH (08:14)
[2023-03-23] MEDS: APIXABAN 2.5 MG TABLET PO SCH (08:15)
[2023-03-23] MEDS: ATORVASTATIN 80 MG TAB PO SCH (08:16)
[2023-03-23] MEDS: DAPAGLIFLOZIN PROPANEDIOL 10 MG TABLET PO SCH (08:16)
[2023-03-23] MEDS: OLANZapine 10 MG TAB PO SCH (08:25)
--- NOTE | 2023-03-23 10:05 | P.PN ---
Progress Note - Text Progress Note Date: 03/23/23 Postoperative day # 1 status post total knee arthroplasty, on adductor canal perineural catheter placed for postoperative analgesia. Ropivacaine 0.2% 8 mL per hour through ON-Q pump continuous infusion. Pain is well controlled. On visual analog scale 3/10 Patient is taking PRN oral pain medications. Catheter site: Looks Ok. There is no erythema or tenderness. Continue with the current pain management plan and will follow.
[2023-03-23 11:28] LABS: Basophils # (A) 0.02 X 10*3/uL (0.00-0.10); Basophils % (A) 0.2 %; Eosinophils # (A) 0.16 X 10*3/uL (0.04-0.35); Eosinophils % (A) 1.8 %; HCT 33.5 % (37.2-46.3); HGB 10.6 g/dL (12.0-15.0); Lymphocytes # (A) 3.26 X 10*3/uL (0.90-5.00); Lymphocytes % (A) 35.7 %; MCH 26.8 pg (27.0-32.0); MCHC 31.6 g/dL (32.0-37.0); MCV 84.6 FL (80.0-97.0); Mean Platelet Volume 10.5 FL (9.5-12.2); Monocytes # (A) 0.96 X 10*3/uL (0.20-1.00); Monocytes % (A) 10.5 %; NRBC Per 100 WBC 0 X 10*3/uL (0.00-0.01); Neutrophils # (A) 4.69 X 10*3/uL (1.80-7.70); Neutrophils % (A) 51.5 %; Platelet Count 265 X 10*3/uL (140-440); RBC 3.96 X 10*6/uL (4.10-5.20); RDW 16.3 % (11.5-14.5); WBC 9.12 X 10*3/uL (4.50-10.00)
--- NOTE | 2023-03-23 11:58 | P.DS ---
Providers Expected date of discharge: 03/23/23 Attending physician: Austen Alcaraz Consults: 03/22/23 09:39 Consult Physician Routine Consulting Provider: Mingo Hansen Consult Reason/Comments: medical management Do you want consulting provider notified?: Yes Primary care physician: Patt Lopez - Discharge Diagnosis(es) (1) S/P total knee arthroplasty Current Visit: No Status: Acute (2) Osteoarthritis of left knee Current Visit: No Status: Acute Hospital Course: This is a 43-year-old female with known history of degenerative arthritis of the left knee. The patient presented for evaluation as an outpatient. After discussion and consideration patient elects to proceed with total knee arthroplasty. The patient is seen preoperatively by Dr. Alcaraz and medically cleared for surgery by their primary care physician. Patient is admitted to [facility] on 03/22/2023 for total knee arthroplasty. The procedure is performed without complication or sequelae. The patient is doing well postoperatively. Labs and vital signs are stable on day of discharge. On day of discharge patient's knee incision is healing well. There is minimal erythema. There is no drainage noted at this time. There is minimal soft tissue swelling to the knee. Patient has full foot and ankle motion without difficulty or pain. Calf is soft and nontender to palpation. Neurovascular status to the left lower extremity is intact. Patient is discharged home in good condition. Patient is on Suboxone per her primary care physician, but plans to discontinue Suboxone while taking Atlantic for postoperative pain. Please see med rec for accurate list of home medications Plan - Discharge Summary Discharge Rx Participant: Yes New Discharge Prescriptions: New Sennosides [Senokot] 2 tab PO DAILY PRN #60 tablet PRN Reason: Constipation Apixaban [Eliquis] 2.5 mg PO BID 30 Days #60 tab HYDROcodone/APAP 7.5-325MG [Atlantic 7.5-325] 1 - 2 tab PO Q6H PRN #32 tab PRN Reason: Pain Continue Topiramate [Topamax] 200 mg PO TID Rizatriptan Odt [Maxalt ASSISTANT AUDITOR] 10 mg PO BID PRN PRN Reason: Migraine Headache Pantoprazole Sodium [Protonix] 40 mg PO QAM OLANZapine [ZyPREXA] 10 mg PO QAM Levothyroxine Sodium [Synthroid] 75 mcg PO QAM Gabapentin 1,200 mg PO TID Doxepin HCl 50 mg PO HS Buprenorphine HCl/Naloxone HCl [Suboxone 8 mg-2 mg Sl Film] 1 film SL TID Atorvastatin [Lipitor] 80 mg PO QAM busPIRone HCl [Buspar] 10 mg PO TID Dapagliflozin Propanediol [Farxiga] 10 mg PO QAM hydrOXYzine HCL [Atarax] 100 mg PO Q6H PRN PRN Reason: Anxiety Propranolol [Inderal] 10 mg PO TID PRN PRN Reason: MIGRAINES Varenicline [Chantix Starter Pack] 1 mg PO BID Tirzepatide [Mounjaro] 2.5 mg SQ TH Changed Insulin Glargine,Hum.rec.anlog [Lantus Solostar Pen] 30 unit SQ HS PRN #0 PRN Reason: only takes if BS 200-300 Discharge Medication List Atorvastatin [Lipitor] 80 mg PO QAM 02/08/20 [History] Buprenorphine HCl/Naloxone HCl [Suboxone 8 mg-2 mg Sl Film] 1 film SL TID 02/08/20 [History] Doxepin HCl 50 mg PO HS 02/08/20 [History] Gabapentin 1,200 mg PO TID 02/08/20 [History] Levothyroxine Sodium [Synthroid] 75 mcg PO QAM 02/08/20 [History] OLANZapine [ZyPREXA] 10 mg PO QAM 02/08/20 [History] Pantoprazole Sodium [Protonix] 40 mg PO QAM 02/08/20 [History] Rizatriptan Odt [Maxalt ASSISTANT AUDITOR] 10 mg PO BID PRN 02/08/20 [History] Topiramate [Topamax] 200 mg PO TID 02/08/20 [History] Dapagliflozin Propanediol [Farxiga] 10 mg PO QAM 02/18/21 [History] busPIRone HCl [Buspar] 10 mg PO TID 02/18/21 [History] Propranolol [Inderal] 10 mg PO TID PRN 12/29/21 [History] Varenicline [Chantix Starter Pack] 1 mg PO BID 12/29/21 [History] hydrOXYzine HCL [Atarax] 100 mg PO Q6H PRN 12/29/21 [History] Tirzepatide [Mounjaro] 2.5 mg SQ TH 03/17/23 [History] Apixaban [Eliquis] 2.5 mg PO BID 30 Days #60 tab 03/23/23 [Rx] HYDROcodone/APAP 7.5-325MG [Atlantic 7.5-325] 1 - 2 tab PO Q6H PRN #32 tab 03/23/23 [Rx] Insulin Glargine,Hum.rec.anlog [Lantus Solostar Pen] 30 unit SQ HS PRN #0 03/23/23 [Rx] Sennosides [Senokot] 2 tab PO DAILY PRN #60 tablet 03/23/23 [Rx] Follow up Appointment(s)/Referral(s): [facility] [NON-STAFF] - 1-2 Days ([facility] will call you to schedule your in home physical therapy visits. ) [facility],Equipment [NON-STAFF] - As Needed (Please call [facility] once home to arrange delivery of the Continuous Passive Motion (CPM) machine. ) Austen Alcaraz DO [Doctor of Osteopathic Medicine] - 04/05/23 2:20 pm Patient Instructions/Handouts: Knee Replacement (DC) Activity/Diet/Wound Care/Special Instructions: Weightbearing as tolerated with a walker. CPM 5-6h daily as tolerated. Leave dressing intact. Dressing may be removed by home care nurse or by patient in 7 days. Then change dressing twice daily until follow up. May shower with initial dressing intact and after removal. If dressing become saturated, please remove. Recommend use of compression stockings daily until follow up to help prevent swelling and blood clots. May remove at night before sleeping. Please take Eliquis twice daily for 30 days to prevent blood clots. Please follow up with [facility] and call with any questions or concerns, . Discharge Disposition: HOME WITH HOME HEALTH SERVICES
--- NOTE | 2023-03-23 21:25 | P.PN ---
Progress Note - Text Progress Note Date: 03/23/23 - Chief Complaint Left knee surgery - History of Present Illness This is a pleasant 43-year-old patient who follows with Dr. Patt Lopez. Chronic stable medical conditions include diabetes, GERD, , hyperlipidemia. Had COVID previously with multiple PEs. Bilateral neuropathy in lower extremity, chronic back pain, arthritis of multiple joints, IBS, hypothyroid, and previous drug addiction. Also history of bipolar/PTSD. Patient underwent left total knee arthroplasty. Some pain at operative site. No nausea vomiting. No chest pain. Laying in bed. March 23: Pain at the operative site. No new issues. Discussed with patient. Did tolerate some diet. Follow-up with PCP upon discharge. Social history: Lives with her and children. Smoked for many years 2 packs a day. For last 6 months down to about 1/4 pack a day. Also has picked up vaping. In the past patient has done methamphetamines and opiates. None since 2017. Used to also take Adderall. Stopped drinking alcohol 10 years ago. Physical examination: VITAL SIGNS: 98.5, 100, 17, 109 x 73, 96% room air GENERAL: Sitting at the edge of the bed. EYES: Pupils equal. Conjunctiva savannah l. HEENT: External appearance of nose and ears normal, oral cavity grossly normal. NECK: JVD not raised; masses not palpable. HEART: First and second heart sounds are normal; no edema. LUNGS: Respiratory rate normal; clear to auscultation. ABDOMEN: Soft, nontender, liver spleen not palpable, no masses palpable. PSYCH: Alert and oriented x3; mood and affect anxious a l. MUSCULOSKELETAL:No Clubbing/cyanosis;muscles-grossly intact. Dressing over the left knee INVESTIGATIONS, reviewed in the clinical context: March 23: White count 9.1 hemoglobin 10.6 platelets 265 February 22, 2023: White count 8.1 hemoglobin 11.8 platelets 311 sodium 141 potassium 4 creatinine 0.7 EKG tracing personally reviewed by me-February 22: Sinus rhythm Assessment plan: -Left total knee arthroplasty Eliquis resumed. Pain controlled. -Bipolar disorder BuSpar doxepin Zyprexa -Chronic nicotine dependence cigarette smoker Chantix -Acute postprocedure blood loss anemia expected from surgery -GERD Protonix -Hypothyroid Synthroid -Diabetes mellitus type 2 chronically insulin Resume Levemir. Follow Accu-Cheks. -Chronic pulm embolism Eliquis resumed -Chronic osteoarthritis multiple joints -Peripheral neuropathy -IBS -Chronic pain syndrome Suboxone Patient to follow-up with PCP upon discharge. Thank Dr. Alcaraz Past Medical History Past Medical History: Diabetes Mellitus, GERD/Reflux, Hyperlipidemia, Osteoarthritis (OA), Pneumonia, Pulmonary Embolus (PE) Additional Past Medical History / Comment(s): 01/26/21 covid pneumonia hospitalized at [facility]-multiple PE's, NIDDM type II, neuropathy bilateral feet/legs, past drug addiction, frequent migraines, chronic back pain, arthritis in multiple joints, IBS, hypothyroid, rhinitis. History of Any Multi-Drug Resistant Organisms: None Reported Past Surgical History: Appendectomy, Back Surgery, Cholecystectomy, Hysterectomy, Orthopedic Surgery Additional Past Surgical History / Comment(s): multiple L knee surgeries, colonoscopy/benign polypectomy, lumbar fusion 2021 Past Anesthesia/Blood Transfusion Reactions: No Reported Reaction Past Psychological History: ADD/ADHD, Anxiety, Bipolar, Depression, PTSD Additional Psychological History / Comment(s): Pt resides with her spouse and 3 children. glucometer. Smoking Status: Former smoker, Vaper Past Alcohol Use History: None Reported Additional Past Alcohol Use History / Comment(s): Pt started smoking in 1997 and quit 01/2021. started smoking again, ppweek, does vape Past Drug Use History: Methamphetamine, Opiates Additional Drug Use History / Comment(s): Pt has not used drugs since 2017
== END 2023-03-23 11:32 | disposition home health service (06) ==
LOC: OR 06:32 → 4SSUR 09:40 → OR 03-23 11:32
PROVIDERS: ATTEND Orthopaedic Surgery
DX: M17.12 Unilateral primary osteoarthritis, left knee (principal); G89.18 Other acute postprocedural pain; E11.9 Type 2 diabetes mellitus without complications; F41.9 Anxiety disorder, unspecified; F32.A Depression, unspecified; M79.7 Fibromyalgia; F17.290 Nicotine dependence, other tobacco product, uncomplicated; Z79.84 Long term (current) use of oral hypoglycemic drugs; Z79.4 Long term (current) use of insulin; Z79.85 Long-term (current) use of injectable non-insulin antidiabetic drugs; Z79.899 Other long term (current) drug therapy; Z88.5 Allergy status to narcotic agent; Z88.6 Allergy status to analgesic agent; Z88.8 Allergy status to other drugs, medicaments and biological substances; Z90.49 Acquired absence of other specified parts of digestive tract; Z98.890 Other specified postprocedural states
CPT/HCPCS: 27447; 97161; 64999; 64448; 85025; 73560; C1713; C1776; C1751; J2250; J3370; J1100; J0690 ×2; J3010; J1170 ×3; J2795

== ENCOUNTER 2023-03-28 18:34 | Emergency (ER) | payer MEDICARE, BC ==
--- NOTE | 2023-03-28 18:54 | ED ---
General Adult HPI - General Chief complaint: Recheck/Abnormal Lab/Rx Stated complaint: post op complications-left knee Time Seen by Provider: 03/28/23 18:53 Source: patient Mode of arrival: ambulatory Limitations: no limitations - History of Present Illness Initial comments: Gissell is a 43 yo F who underwent left total knee with Dr. Austen owens on . Patient returns to the ER today for evaluation of worsening pain and swelling of the leg. Patient states she been doing well postoperatively, she has been following with physical therapy at home. Today she noted increased pain and redness from her knee down the left lateral side of her leg as well as increased swelling and decreased range of motion. Patient states she has been compliant with her Eliquis. Visiting nurse at the house today noted the worsening swelling and decrease in range of motion and recommended the patient be seen in the emergency department. Patient denies fevers or chills. She states she took 1 Colmar earlier today but she is trying to use them less so she has not taken one since early this morning. - Related Data Home Medications Medication Instructions Recorded Confirmed Buprenorphine HCl/Naloxone HCl 1 film SL TID 02/08/20 03/28/23 [Suboxone 8 mg-2 mg Sl Film] Doxepin HCl 50 mg PO HS 02/08/20 03/28/23 Gabapentin 1,200 mg PO TID 02/08/20 03/28/23 Levothyroxine Sodium [Synthroid] 75 mcg PO DAILY 02/08/20 03/28/23 OLANZapine [ZyPREXA] 10 mg PO DAILY 02/08/20 03/28/23 Pantoprazole Sodium [Protonix] 40 mg PO DAILY 02/08/20 03/28/23 Rizatriptan Odt [Maxalt HOT PLATE PRESS OPERATOR] 10 mg PO BID PRN 02/08/20 03/28/23 Topiramate [Topamax] 200 mg PO TID 02/08/20 03/28/23 Dapagliflozin Propanediol [Farxiga] 10 mg PO DAILY 02/18/21 03/28/23 busPIRone HCl [Buspar] 10 mg PO TID 02/18/21 03/28/23 Propranolol [Inderal] 10 mg PO TID PRN 12/29/21 03/28/23 Varenicline [Chantix Starter Pack] 1 mg PO BID 12/29/21 03/28/23 hydrOXYzine HCL [Atarax] 100 mg PO Q6H PRN 12/29/21 03/28/23 Tirzepatide [Mounjaro] 2.5 mg SQ TH 03/17/23 03/28/23 Atorvastatin [Lipitor] 80 mg PO DAILY 03/28/23 03/28/23 Previous Rx's Medication Instructions Recorded Apixaban [Eliquis] 2.5 mg PO BID 30 Days #60 tab 03/23/23 HYDROcodone/APAP 7.5-325MG [Colmar 1 - 2 tab PO Q6H PRN #32 tab 03/23/23 7.5-325] Insulin Glargine,Hum.rec.anlog 30 unit SQ HS PRN #0 03/23/23 [Lantus Solostar Pen] Sennosides [Senokot] 2 tab PO DAILY PRN #60 tablet 03/23/23 Cephalexin [Keflex] 500 mg PO Q6HR 1 Days #4 cap 03/28/23 Allergies Allergy/AdvReac Type Severity Reaction Status Date / Time lamotrigine [From Lamictal] Allergy tachycardia Verified 03/28/23 18:48 ,rash morphine Allergy Hallucinati Verified 03/28/23 18:48 ons ondansetron HCl Allergy Anaphylaxis Verified 03/28/23 18:48 [From Zofran (as hydrochloride)] prochlorperazine Allergy Anaphylaxis Verified 03/28/23 18:48 [From Compazine] terbutaline sulfate Allergy Anaphylaxis Verified 03/28/23 18:48 [From Brethine] magnesium sulfate Allergy Anaphylaxis Uncoded 03/28/23 18:48 Review of Systems ROS Statement: Those systems with pertinent positive or pertinent negative responses have been documented in the HPI. ROS Other: All systems not noted in ROS Statement are negative. Past Medical History Past Medical History: Diabetes Mellitus, GERD/Reflux, Hyperlipidemia, Osteoarthritis (OA), Pneumonia Additional Past Medical History / Comment(s): 01/26/[address] [facility], NIDDM type II, neuropathy bilateral feet/legs, past drug addiction, migraines, chronic back pain/herniated disc, arthritis in multiple joints, IBS, hypothyroid, rhinitis. History of Any Multi-Drug Resistant Organisms: None Reported Past Surgical History: Appendectomy, Cholecystectomy, Hysterectomy, Joint Replacement, Orthopedic Surgery Additional Past Surgical History / Comment(s): chronic back pain herniated discs, multiple L knee surgeries, colonoscopy/benign polypectomy. Past Anesthesia/Blood Transfusion Reactions: No Reported Reaction Past Psychological History: ADD/ADHD, Anxiety, Bipolar, Depression Smoking Status: Current every day smoker Past Alcohol Use History: Occasional Past Drug Use History: None Reported - Past Family History Father Family Medical History: No Reported History Additional Family Medical History / Comment(s): Father is healthy Mother Family Medical History: No Reported History Additional Family Medical History / Comment(s): Mother is healthy Family Family Medical History: No Reported History General Exam Limitations: no limitations General appearance: alert, other (Appears uncomfortable but nontoxic) Head exam: Present: atraumatic, normocephalic Eye exam: Present: normal appearance, PERRL ENT exam: Present: normal exam Respiratory exam: Absent: respiratory distress Cardiovascular Exam: Present: regular rate GI/Abdominal exam: Absent: distended Rectal exam: Present: deferred Left Knee exam: Present: tenderness, swelling, effusion. Absent: crepitus Lower Leg exam: Present: tenderness, swelling, erythema. Absent: palpable cord Ankle exam: Present: full ROM Course Vital Signs 03/28/23 03/28/23 03/28/23 18:46 21:50 22:00 Temperature 98.1 F 98.7 F Pulse Rate 88 62 88 Respiratory 20 13 18 Rate Blood Pressure 113/79 115/78 114/102 O2 Sat by Pulse 99 95 98 Oximetry Medical Decision Making - Medical Decision Making Was pt. sent in by a medical professional or institution (, PA, GLOBAL SECURITY ARCHITECT, urgent care, hospital, or intermediate...) When possible be specific @ -No Did you speak to anyone other than the patient for history (EMS, parent, family, police, friend...)? What history was obtained from this source @ -No Did you review nursing and triage notes (agree or disagree)? Why? @ -I reviewed and agree with nursing and triage notes Were old charts reviewed (outside hosp., previous admission, EMS record, old EKG, old radiological studies, urgent care reports/EKG's, intermediate records)? Report findings @ -Operative notes were reviewed Differential Diagnosis (chest pain, altered mental status, abdominal pain women, abdominal pain men, vaginal bleeding, weakness, fever, dyspnea, syncope, headache, dizziness, GI bleed, back pain, seizure, CVA, palpatations, mental health)? @ -Differential includes postoperative infection, DVT, new injury, EKG interpreted by me (3pts min.). @ -As above X-rays interpreted by me (1pt min.). @ -None done CT interpreted by me (1pt min.). @ -None done U/S interpreted by me (1pt. min.). @ -None done What testing was considered but not performed or refused? (CT, X-rays, U/S, labs)? Why? @ -None What meds were considered but not given or refused? Why? @ -None Did you discuss the management of the patient with other professionals (professionals i.e. , PA, GLOBAL SECURITY ARCHITECT, lab, RT, psych nurse, social scientist, rough rounder, te acher, special police officer, hospice case manager)? Give summary @ -No Was smoking cessation discussed for >3mins.? @ -No Was critical care preformed (if so, how long)? @ -No Were there social determinants of health that impacted care today? How? (Homelessness, low income, unemployed, alcoholism, drug addiction, transportation, low edu. Level, literacy, decrease access to med. care, custodial, rehab)? @ -No Was there de-escalation of care discussed even if they declined (Discuss DNR or withdrawal of care, Hospice)? DNR status @ -No What co-morbidities impacted this encounter? (DM, HTN, Smoking, COPD, CAD, C ancer, CVA, ARF, Chemo, Hep., AIDS, mental health diagnosis, sleep apnea, morbid obesity)? @ -None Was patient admitted / discharged? Hospital course, mention meds given and route, prescriptions, significant lab abnormalities, going to OR and other pertinent info. @ -Discharged The patient was seen and evaluated. History is obtained from patient. Well- appearing nontoxic 43-year-old female with pain and redness of her left calf after having a knee replacement last week. Ultrasound was performed to rule out DVT and was negative. Labs were unremarkable. I discussed with patient that I suspect she may be developing some early cellulitis in her left lower extremity distal to the incision site. Patient does report a history of recurrent cellulitis she will be started on Keflex. I advised her to contact Dr. Alcaraz office tomorrow for follow-up. Undiagnosed new problem with uncertain prognosis? @ -No Drug Therapy requiring intensive monitoring for toxicity (Heparin, Nitro, Insulin, Cardizem)? @ -No Were any procedures done? @ -No Diagnosis/symptom? @ -Cellulitis left lower extremity Acute, or Chronic, or Acute on Chronic? @ -Acute Uncomplicated (without systemic symptoms) or Complicated (systemic symptoms)? @ -Uncomplicated Side effects of treatment? @ -No Exacerbation, Progression, or Severe Exacerbation? @ -No Poses a threat to life or bodily function? How? (Chest pain, [place], [place], pneumonia, PE, COPD, DKA, ARF, appy, cholecystitis, CVA, Diverticulitis, Homicidal, Suicidal, threat to staff... and all critical care pts) @ -Unlikely - Lab Data Result diagrams: 03/28/23 19:49 03/28/23 21:00 Lab Results 03/28/23 03/28/23 Range/Units 19:49 21:00 WBC 8.4 (3.8-10.6) k/uL RBC 4.11 (3.80-5.40) m/uL Hgb 11.3 L (11.4-16.0) gm/dL Hct 34.4 (34.0-46.0) % MCV 83.7 (80.0-100.0) fL MCH 27.6 (25.0-35.0) pg MCHC 33.0 (31.0-37.0) g/dL RDW 16.0 H (11.5-15.5) % Plt Count 308 (150-450) k/uL MPV 8.8 Neutrophils % 53 % Lymphocytes % 35 % Monocytes % 5 % Eosinophils % 4 % Basophils % 1 % Neutrophils # 4.5 (1.3-7.7) k/uL Lymphocytes # 3.0 (1.0-4.8) k/uL Monocytes # 0.5 (0-1.0) k/uL Eosinophils # 0.4 (0-0.7) k/uL Basophils # 0.0 (0-0.2) k/uL Hypochromasia Slight Poikilocytosis Slight Sodium 141 (137-145) mmol/L Potassium 3.9 (3.5-5.1) mmol/L Chloride 104 (98-107) mmol/L Carbon Dioxide 24 (22-30) mmol/L Anion Gap 13 mmol/L BUN 11 (7-17) mg/dL Creatinine 0.70 (0.52-1.04) mg/dL Est GFR (CKD-EPI)AfAm >90 (>60 ml/min/1.73 sqM) Est GFR (CKD-EPI)NonAf >90 (>60 ml/min/1.73 sqM) Glucose 128 H (74-99) mg/dL Calcium 9.9 (8.4-10.2) mg/dL Total Bilirubin 0.6 (0.2-1.3) mg/dL AST 22 (14-36) U/L ALT 18 (4-34) U/L Alkaline Phosphatase 128 H (38-126) U/L Total Protein 7.5 (6.3-8.2) g/dL Albumin 4.5 (3.5-5.0) g/dL Disposition Clinical Impression: Left leg cellulitis Disposition: HOME SELF-CARE Condition: Stable Additional Instructions: Call Dr Alcaraz tomorrow for follow up Prescriptions: Cephalexin [Keflex] 500 mg PO Q6HR 1 Days #4 cap Is patient prescribed a controlled substance at d/c from ED?: No Referrals: Patt Lopez MD [Primary Care Provider] - 1-2 days Austen Alcaraz DO [Doctor of Osteopathic Medicine] - 1-2 days
[2023-03-28 20:23] LABS: Basophils % (A) 1 %; Eosinophils # (A) 0.4 k/uL (0-0.7); Eosinophils % (A) 4 %; HCT 34.4 % (34.0-46.0); HGB 11.3 gm/dL (11.4-16.0); Hypochromasia Slight; Lymphocytes % (A) 35 %; MCH 27.6 pg (25.0-35.0); MCV 83.7 fL (80.0-100.0); Mean Platelet Volume 8.8; Monocytes # (A) 0.5 k/uL (0-1.0); Monocytes % (A) 5 %; Neutrophils # (A) 4.5 k/uL (1.3-7.7); Neutrophils % (A) 53 %; Platelet Count 308 k/uL (150-450); Poikilocytosis Slight; RBC 4.11 m/uL (3.80-5.40); WBC 8.4 k/uL (3.8-10.6)
[2023-03-28] MEDS: HYDROmorphone 1 MG/ML 1 ML SYRINGE IVP STA (20:36)
--- NOTE | 2023-03-28 20:59 | US ---
EXAMINATION TYPE: US venous doppler duplex LE LT DATE OF EXAM: 03/28/2023 8:44 PM COMPARISON: US CLINICAL INDICATION: Female, 43 years old with history of edema, post op; PAIN S/P KNEE REPLACEMENT SIDE PERFORMED: Left TECHNIQUE: The lower extremity deep venous system is examined utilizing real time linear array sonog herve with graded compression, doppler sonography and color-flow sonography. VESSELS IMAGED: Common Femoral Vein Deep Femoral Vein Greater Saphenous Vein * Femoral Vein Popliteal Vein Small Saphenous Vein * Proximal Calf Veins (* superficial vessels) Left Leg: Negative for DVT IMPRESSION: Grayscale, color doppler, spectral doppler imaging performed of the deep veins of the lo wer extremities. There is normal flow, compressibility, vascular waveforms.
[2023-03-28 21:34] LABS: ALT 18 U/L (4-34); AST 22 U/L (14-36); African American GFR (CKD) >90 (>60 ml/min/1.73 sqM); Albumin 4.5 g/dL (3.5-5.0); Alkaline Phosphatase 128 U/L (38-126); Anion Gap 13 mmol/L; Blood Urea Nitrogen 11 mg/dL (7-17); Calcium 9.9 mg/dL (8.4-10.2); Carbon Dioxide 24 mmol/L (22-30); Chloride 104 mmol/L (98-107); Glucose 128 mg/dL (74-99); Non-African American GFR(CKD) >90 (>60 ml/min/1.73 sqM); Potassium 3.9 mmol/L (3.5-5.1); Sodium 141 mmol/L (137-145); Total Bilirubin 0.6 mg/dL (0.2-1.3); Total Protein 7.5 g/dL (6.3-8.2)
[2023-03-28] MEDS: CEPHALEXIN 500MG STARTER PACK 4 CAP BTL PO STA (22:38)
[2023-03-28] MEDS: HYDROmorphone 0.5 MG/0.5 ML SYRINGE IVP STA (22:40)
[2023-03-28 22:49] VITALS: BP 114/102; PULSE 88; RESP 18; TEMP 98.7
== END 2023-03-28 22:52 | disposition home or self-care (01) ==
LOC: EC 18:34
DX: L03.116 Cellulitis of left lower limb (principal); E11.9 Type 2 diabetes mellitus without complications; E03.9 Hypothyroidism, unspecified; E78.5 Hyperlipidemia, unspecified; K21.9 Gastro-esophageal reflux disease without esophagitis; F41.9 Anxiety disorder, unspecified; F31.9 Bipolar disorder, unspecified; F90.9 Attention-deficit hyperactivity disorder, unspecified type; F17.200 Nicotine dependence, unspecified, uncomplicated; Z79.899 Other long term (current) drug therapy; Z79.890 Hormone replacement therapy; Z88.5 Allergy status to narcotic agent; Z88.8 Allergy status to other drugs, medicaments and biological substances
CPT/HCPCS: 36415; 80053; 85025; 87040; 93971; 99284; 96374; J1170 ×2

== ENCOUNTER → 2023-10-25 | Outpatient (CLI) | payer MEDICARE, BC ==
--- NOTE | 2023-10-25 17:15 | CT ---
EXAMINATION TYPE: CT knee LT wo con DATE OF EXAM: 10/25/2023 COMPARISON: None HISTORY: Pain in left knee, has been giving out. Hx of knee replacement sx. CT DLP: 435 mGycm Automated exposure control for dose reduction was used. FINDINGS: There is a total left knee replacement. There is no fracture or dislocation. There is near anatomic alignment of the prosthesis. There is no periprosthetic osteolysis IMPRESSION: TOTAL LEFT KNEE REPLACEMENT WITH NO SIGNIFICANT ABNORMALITY SEEN [facility], , 10/25/2023 5:12 PM
== END | disposition home or self-care (01) ==
LOC: RADCTMAIN 15:52
PROVIDERS: ATTEND Orthopaedic Surgery
DX: M25.562 Pain in left knee

== ENCOUNTER → 2023-12-20 | Outpatient (CLI) | payer MEDICARE, BC ==
[2023-12-20 11:04] LABS: Partial Thromboplastin Time 24.3 sec (22.0-30.0); Prothrombin Time 11.1 sec (10.0-12.5)
[2023-12-20 15:41] LABS: ALT 14 U/L (8-44); AST 14 U/L (13-35); Albumin 4.7 g/dL (3.8-4.9); Albumin/Globulin Ratio 1.68 Ratio (1.60-3.17); Alkaline Phosphatase 110 U/L (41-126); BUN/Creat Ratio 24.33 Ratio (12.00-20.00); Blood Urea Nitrogen 21.9 mg/dL (9.0-27.0); Calcium 10.8 mg/dL (8.7-10.3); Carbon Dioxide 26.2 mmol/L (21.6-31.8); Chloride 96 mmol/L (96-109); Globulin 2.8 g/dL (1.6-3.3); Glucose 197 mg/dL (70-110); Potassium 3.3 mmol/L (3.5-5.5); Sodium 137 mmol/L (135-145); Total Bilirubin 0.4 mg/dL (0.3-1.2); Total Protein 7.5 g/dL (6.2-8.2)
[2023-12-20 15:43] LABS: HGB 13.8 g/dL (12.0-15.0); MCH 26.4 pg (27.0-32.0); MCHC 32.9 g/dL (32.0-37.0); MCV 80.3 FL (80.0-97.0); NRBC Per 100 WBC 0 X 10*3/uL (0.00-0.01); Platelet Count 271 X 10*3/uL (140-440); RBC 5.23 X 10*6/uL (4.10-5.20); WBC 7.67 X 10*3/uL (4.50-10.00)
== END | disposition home or self-care (01) ==
LOC: LABWHC1 09:26
PROVIDERS: ATTEND Orthopaedic Surgery
DX: Z01.812 Encounter for preprocedural laboratory examination (principal); T84.84XA Pain due to internal orthopedic prosthetic devices, implants and grafts, initial encounter; Y82.9 Unspecified medical devices associated with adverse incidents
CPT/HCPCS: 36415; 80053; 85027; 85610; 85730; 87070

== ENCOUNTER 2024-01-18 05:33 | Inpatient (IN) | payer MEDICARE, BC ==
[2024-01-12 15:29] VITALS: BMI 32.2
[~2024-01-18 05:33] MED LIST changes: +GABAPENTIN 300 MG CAP PO PRN; -LIDOCAINE 1% (10MG/ML) FOR IV START INTRADERMA PRN; -fentaNYL (PF) 50 MCG/ML 2 ML AMP IV PRN
[2024-01-18 06:24] LABS: Glucose,Whole Blood 119 mg/dL (70-110)
[2024-01-18] MEDS: MELOXICAM 7.5 MG TAB PO PRN (06:24)
[2024-01-18] MEDS: ACETAMINOPHEN TAB 500 MG TAB PO PRN (06:24)
[2024-01-18] MEDS: DEXAMETHASONE SOD PHOSPHATE 4 MG/ML 1 ML VIAL IV ONE (06:24)
[2024-01-18] MEDS: ONDANSETRON ODT 4 MG TAB PO STA (06:35)
[2024-01-18] MEDS: SCOPOLAMINE 1 MG/72 HR PATCH TRANSDERM ONE (06:35)
[2024-01-18] MEDS: VANCOMYCIN 1,500 MG in SODIUM CHLORIDE 0.9% 500 ML 500 ML IVPB PRN (06:36)
[2024-01-18] MEDS: LACTATED RINGERS 1,000 ML IV SCH (06:36)
[2024-01-18] MEDS: MIDAZOLAM 2 MG/2 ML VIAL IVP ONE (06:46)
[2024-01-18] MEDS ORDERED: MIDAZOLAM 2 MG/2 ML VIAL IV PRN (07:00)
[2024-01-18] MEDS: IV FLUID CONTINUATION 1,000 ML IV ONE (07:08)
[2024-01-18] MEDS: ceFAZolin 1,000 MG in SODIUM CHLORIDE 0.9% 1,000 ML IRRIGATION ONE (07:10)
[2024-01-18] MEDS ORDERED: PROPOFOL 10 MG/ML 20 ML VIAL IV ONE (07:10)
[2024-01-18] MEDS ORDERED: MIDAZOLAM 2 MG/2 ML VIAL ONE (07:10)
[2024-01-18] MEDS ORDERED: SODIUM CHLORIDE 0.9% (PF) 10 ML VIAL ONE (07:10)
[2024-01-18] MEDS ORDERED: LIDOCAINE 1% INJ 10MG/ML (20 ML MDV) ONE (07:10)
[2024-01-18] MEDS ORDERED: ROPIVACAINE 5 MG/ML 30 ML VIAL ONE (07:10)
[2024-01-18] MEDS ORDERED: TRANEXAMIC 1,000 MG/100ML-NACL PREMIX BAG ONE (07:10)
--- NOTE | 2024-01-18 07:55 | P.ANPRN ---
Procedure Note - Anesthesia - Nerve Block Performed Left Adductor Canal Infusion Time Out Performed: Yes (0645) Date of Procedure: 01/18/24 Procedure Start Time: 06:45 Procedure Stop Time: 06:56 Location of Patient: PreOp Indication: Acute Post-Operative Pain, Requested by Surgeon Sedation Type: Sedate with meaningful contact maintained Preparation: Sterile Prep, Sterile Dressing Position: Supine Catheter: Indwelling Needle Types: On-Q Needle Gauge: 18 Ultrasound used to visualize needle placement: Yes Ultrasound used to observe medication spread: Yes Injectate: 0.5% Ropivacaine (see comment for volume) (15 mL of 0.5% ropivacaine mixed with 5 mL of preservative-free normal saline) Blood Aspirated: No Pain Paresthesia on Injection Noted: No Resistance on Injection: Normal Image Stored and Saved: Yes Events: Uneventful and Well Tolerated
--- NOTE | 2024-01-18 07:56 | P.ANPRN ---
Procedure Note - Anesthesia - Nerve Block Performed Left iPack Single Time Out Performed: Yes (0645) Date of Procedure: 01/18/24 Procedure Start Time: 06:45 Procedure Stop Time: 06:56 Location of Patient: PreOp Indication: Acute Post-Operative Pain, Requested by Surgeon Sedation Type: Sedate with meaningful contact maintained Preparation: Sterile Prep, Sterile Dressing Position: Supine Catheter: None Needle Types: Pajunk Needle Gauge: 21 Ultrasound used to visualize needle placement: Yes Ultrasound used to observe medication spread: Yes Injectate: 0.5% Ropivacaine (see comment for volume) Blood Aspirated: No Pain Paresthesia on Injection Noted: No Resistance on Injection: Normal Image Stored and Saved: Yes Events: Uneventful and Well Tolerated (20 mL of block solution containing 15 mL of 0.5% ropivacaine mixed with 5 mL of preservative-free normal saline)
--- NOTE | 2024-01-18 08:02 | P.OP ---
Date of Procedure: 01/18/24 Preoperative Diagnosis: 1. Painful left total knee arthroplasty 2. Ligamentous instability, left total knee arthroplasty Postoperative Diagnosis: 1. Painful left total knee arthroplasty 2. Ligamentous instability, left total knee arthroplasty 3. Intra-articular scar tissue Procedure(s) Performed: 1. Revision left total knee arthroplasty with polyethylene exchange 2. Excision intra-articular scar tissue Implants: [employer] Journey II, XLPE Deep Dished articular insert, size 11 mm, Size 3-4, left The articulation is Oxinium on polyethylene Anesthesia: spinal Surgeon: Austen Alcaraz Hand Turner #1: Diane Beltran Estimated Blood Loss (ml): 25 Pathology: none sent Condition: stable Disposition: PACU Indications for Procedure: This is a 43-year-old female that had a left total knee arthroplasty performed on 03/22/2023. She initially did well but had a fall where she hyperflexed her knee. Since the fall, she is continuously has pain in her knee, and also demonstrates ligamentous instability. The operation of revision knee replacement has been discussed at length in the office, as well as potential risks and complications. These are inclusive of, but not limited to: Infection, bleeding, scarring, discomfort, stiffness, blood vessel and nerve damage, need for further surgery, failure to relieve symptoms, persistence, recurrence, or worsening of problems, loosening, dislocation, wear, blood clot, pulmonary embolism, , gait dysfunction, stiffness, and other risks as discussed in the office. Patient elects to proceed and the consent form has been signed. Operative Findings: The operative findings are consistent with mild medial to lateral ligamentous instability of the left total knee. The implants were well fixed and positioned. There was moderate amount of scar tissue and no signs of infection. Description of Procedure: Patient was seen in the preoperative area consent was reviewed and operative site was marked with a skin marker. An adductor canal pain catheter was placed by anesthesia in the preoperative area. Patient was then brought to the operating room and given preoperative antibiotics intravenously. A general anesthetic was administered by the anesthesia department. A tourniquet was placed on the upper thigh and the lower extremity was prepped and draped in usual sterile fashion. A gram of transexamic acid was given. A universal timeout was then performed which confirmed the patient's name, surgical site, ALLERGIES, and consent. The lower extremity was then exsanguinated and tourniquet was inflated to 250 mmHg. A standard and anterior midline approach to the knee was performed. The skin and subcutaneous tissue was dissected down to the patellar tendon, with the prior scar being excised. A medial parapatellar arthrotomy was then performed. A moderate amount of clear fluid was encountered. The knee was then extended, the patellar was everted, and the knee was again flexed. the knee was then examined. The components were well fixed and positioned. There is no evidence of any loosening or problems with either the femoral, tibial, or patellar components. The knee was then examined under anesthesia. The knee was able to fully extend and there was some mild medial to lateral instability. There was no significant anterior or posterior instability. At this point, the polyethylene was then removed and because the components were well fixed and positioned, the decision was reached to not remove the femoral or tibial components. A polyethylene insert was then placed which was 11 mm. The original polyethylene insert was 9 mm. Examination with the 11 mm dished trial revealed significant improvement in the medial lateral instability. This time, the decision was reached to do a polyethylene exchange and not remove the entire knee replacement. The 11 mm dish insert was then opened in inserted in the knee with component locking confirmed. Examination of the knee revealed full extension with flexion to 130. The knee was stable both medial laterally and anterior posteriorly. The cut surfaces of bone were then irrigated with pulsatile lavage. The knee was also irrigated with Irrisept solution. The tourniquet was released, and hemostasis was obtained. A second gram of transexamic acid was given. The knee was again irrigated. The knee was again taken through range of motion and found to be stable throughout all range of motion of 0-130. The fascia was then closed with #2 strata fix suture. The subcutaneous tissue was closed with 3-0 Vicryl and 3-0 moncryl. Exofin glue was used for the skin and placed with the knee in flexion. The patient was placed in a sterile silver dressing. Patient was then transferred to recovery room in stable condition. The customer service assistant KELLI Garcia was required due the complexity surgery and the need for a skilled surgical manager. She assisted in positioning, draping, retraction, and closure of the wound.and closure of the wound.
[2024-01-18] MEDS ORDERED: NALOXONE 0.4 MG/ML 1 ML VIAL IV PRN (08:30)
[2024-01-18] MEDS ORDERED: hydrOXYzine pamoate 25 MG CAP PO PRN (08:30)
[2024-01-18] MEDS ORDERED: bisacodyL 10 MG SUPP RECTAL PRN (08:30)
[2024-01-18] MEDS ORDERED: NA PHOS,M-B/NA PHOS,DI-BA 133 ML ENEMA RECTAL PRN (08:30)
[2024-01-18] MEDS ORDERED: MAGNESIUM HYDROXIDE 2,400 MG/30 ML CUP PO PRN (08:30)
[2024-01-18] MEDS ORDERED: HYDROmorphone 0.5 MG/0.5 ML SYRINGE IVP PRN (08:30)
[2024-01-18] MEDS ORDERED: HYDROcodone/APAP 7.5-325MG 1 EACH TAB PO PRN (08:33)
[2024-01-18 08:48] LABS: Glucose,Whole Blood 95 mg/dL (70-110)
[2024-01-18] MEDS: KETOROLAC 15 MG/ML 1 ML VIAL IVP STA (09:14)
[2024-01-18] MEDS: fentaNYL (PF) 50 MCG/ML 2 ML AMP IV PRN (09:33)
--- NOTE | 2024-01-18 09:56 | XR ---
EXAMINATION TYPE: XR knee limited LT DATE OF EXAM: 01/18/2024 9:40 AM COMPARISON: 03/22/2023 CLINICAL INDICATION: Female, 43 years old with history of Evaluation for Postop abnormality and align ment; PHH, pain TECHNIQUE: XR knee limited LT 2 views submitted. FINDINGS: Status post total knee arthroplasty changes with hardware in appropriate alignment and in tact. No evidence of fracture. Subcutaneous lucencies and lucencies within the joint consistent with surgical changes. IMPRESSION: Status post total knee arthroplasty changes with hardware intact and appropriate alignment. No fractu res identified. [facility], , 01/18/2024 9:53 AM
[2024-01-18] MEDS: SODIUM CHLORIDE 0.9% 1,000 ML IV SCH (12:40)
[2024-01-18] MEDS: APIXABAN 5 MG TAB PO SCH (12:46)
[2024-01-18] MEDS: HYDROmorphone 0.5 MG/0.5 ML SYRINGE IVP PRN (14:53)
[2024-01-18 16:41] LABS: Glucose,Whole Blood 122 mg/dL (70-110)
[2024-01-18] MEDS: GABAPENTIN 400 MG CAP PO SCH (17:12)
[2024-01-18] MEDS: busPIRone HCl 10 MG TAB PO SCH (17:12)
[2024-01-18] MEDS ORDERED: DEXTROSE 50% SYRINGE 50 ML IVP PRN ×2 (18:17)
--- NOTE | 2024-01-18 18:18 | P.CONS ---
History of Present Illness - Reason for Consult Consult date: 01/18/24 Medical management Requesting physician: Austen Alcaraz - Chief Complaint Left knee surgery - History of Present Illness Very pleasant 43-year-old patient, follows with Dr. Patt Lopez. Chronic medical conditions include diabetes, GERD, hyperlipidemia, prior pulmonary embolism currently not on anticoagulation, hypothyroid, the pulmonary embolism was from COVGA in January 2021. Peripheral neuropathy in hands and feet. Prior history of drug addiction. Crohn's colitis with averaging about 2 bowel movements a month. Also has bipolar. Patient is undergone left knee revision surgery. Had surgery about a year ago then took a fall. With injury. Postprocedure pain is controlled. No nausea vomiting. No chest pain. Review of systems: GEN.: A bit tired EYES: None HEENT: None NECK: None RESPIRATORY: None CARDIOVASCULAR: None GASTROINTESTINAL: [As above GENITOURINARY: None MUSCULOSKELETAL: Joint pains LYMPHATICS: None HEMATOLOGICAL: None PSYCHIATRY: None NEUROLOGICAL: None Social history: Started smoking in 1997. Down to 2 cigarettes a day from 2 packs a day. No alcohol in over 20 years. No drug use since 2018. Physical examination: VITAL SIGNS: 97.6, 77, 18, 117 x 83, 100% on 2 L GENERAL: BMI 32.7, reclining bed awake not in distress. EYES: Pupils equal. Conjunctiva savannah l. HEENT: External appearance of nose and ears normal, oral cavity grossly normal. NECK: JVD not raised; masses not palpable. HEART: First and second heart sounds are normal; no edema. LUNGS: Respiratory rate normal; clear to auscultation. ABDOMEN: Soft, nontender, liver spleen not palpable, no masses palpable. PSYCH: Alert and oriented x3; mood and affect savannah l. MUSCULOSKELETAL:No Clubbing/cyanosis;muscles-grossly intact. Dressing of the left knee NEUROLOGICAL: Cranial nerves grossly intact; no facial asymmetry, power and sensation grossly intact. LYMPHATICS: No lymph nodes palpable in the axilla and neck INVESTIGATIONS, reviewed in the clinical context: December 20, 2023: White count 7.6 hemoglobin 13.8 platelets 271 sodium 137 BUN 21.9 creatinine 0.9 Assessment plan: -Revision left knee arthroplasty. Secondary to fall. With a prior history of arthroplasty Eliquis for DVT prophylaxis. Received IV cefazolin for infection prophylaxis. -Chronic Crohn's colitis At baseline has about 2 bowel movements a month -Bipolar disorder BuSpar. Zyprexa. -Hyperlipidemia Lipitor -Diabetes mellitus type 2 on oral hypoglycemic Glimepiride. Farxiga. Mounjaro -Obesity BMI 32.7 On Mounjaro -Peripheral neuropathy Gabapentin -Chronic insomnia Doxepin -Chronic nicotine dependence, cigarette smoker Chantix Care was discussed with the patient. Questions answered. Accu-Cheks with sliding scale. Thank Dr. Alcaraz Past Medical History Past Medical History: Diabetes Mellitus, GERD/Reflux, Hyperlipidemia, Osteoarthritis (OA), Pneumonia, Pulmonary Embolus (PE), Thyroid Disorder Additional Past Medical History / Comment(s): Born with hole in heart, has had no problems. 01/26/21 Covid Pneumonia and PE's in both lungs. Neuropathy in bilateral feet/legs, past drug addiction, migraines, chronic back pain/herniated disc, arthritis in multiple joints, IBS, hypothyroid, rhinitis. History of Any Multi-Drug Resistant Organisms: None Reported Past Surgical History: Appendectomy, Back Surgery, Cholecystectomy, Hysterectomy, Joint Replacement, Orthopedic Surgery Additional Past Surgical History / Comment(s): Cage in back Dec 2021, multiple left knee surgeries, colonoscopy/benign polypectomy, left knee replacement. Past Anesthesia/Blood Transfusion Reactions: No Reported Reaction Additional Past Anesthesia/Blood Transfusion Reaction / Comm: No hx blood transfusion. Smoking Status: Current every day smoker - Past Family History Father Family Medical History: No Reported History Additional Family Medical History / Comment(s): Father is healthy Mother Family Medical History: Cancer Additional Family Medical History / Comment(s): Lung cancer. 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] 10 mg PO BID PRN 02/08/20 01/18/24 History Dapagliflozin Propanediol [Farxiga] 10 mg PO DAILY 02/18/21 01/18/24 History busPIRone HCl [Buspar] 10 mg PO TID 02/18/21 01/18/24 History Varenicline [Chantix Starter Pack] 1 mg PO BID 12/29/21 01/18/24 History hydrOXYzine HCL [Atarax] 100 mg PO Q6H PRN 12/29/21 01/18/24 History Atorvastatin [Lipitor] 80 mg PO DAILY 03/28/23 01/18/24 History Fenofibrate 54 mg PO DAILY 01/12/24 01/18/24 History Glimepiride 4 mg PO DAILY 01/12/24 01/18/24 History HYDROcodone/APAP 7.5-325MG [[place] 1 - 2 tab PO TID PRN 01/12/24 01/18/24 History 7.5-325] Ondansetron [Zofran] 4 mg PO TID PRN 01/12/24 01/18/24 History Tirzepatide [Mounjaro] 12.5 mg SQ TU 01/12/24 01/18/24 History Topiramate [Topamax] 100 mg PO BID 01/12/24 01/18/24 History Apixaban [Eliquis] 2.5 mg PO BID 30 Days #60 tab 01/18/24 Rx HYDROcodone/APAP 7.5-325MG [[place] 1 - 2 tab PO Q6H PRN #32 tab 01/18/24 Rx 7.5-325] Sennosides [Senokot] 2 tab PO DAILY PRN #60 tablet 01/18/24 Rx Allergies Allergy/AdvReac Type Severity Reaction Status Date / Time lamotrigine [From Lamictal] Allergy tachycardia Verified 01/18/24 06:02 ,rash morphine Allergy Hallucinati Verified 01/18/24 06:02 ons ondansetron HCl Allergy Anaphylaxis Verified 01/18/24 06:02 [From Zofran (as hydrochloride)] prochlorperazine Allergy Anaphylaxis Verified 01/18/24 06:02 [From Compazine] terbutaline sulfate Allergy Anaphylaxis Verified 01/18/24 06:02 [From Brethine] magnesium sulfate Allergy Anaphylaxis Uncoded 01/18/24 06:02 Physical Exam Vitals: Vital Signs Temp Pulse Resp BP Pulse Ox 01/18/24 12:55 97.6 F 77 18 117/83 100 01/18/24 12:30 74 14 90/53 100 01/18/24 12:00 70 14 91/50 100 01/18/24 11:30 72 12 90/55 100 01/18/24 11:00 75 12 96/65 100 01/18/24 10:45 85 12 95/54 100 01/18/24 10:30 77 12 90/67 100 01/18/24 10:15 75 12 95/51 100 01/18/24 09:57 74 8 L 97/54 100 01/18/24 09:42 75 10 L 95/54 99 01/18/24 09:27 72 10 L 105/67 96 01/18/24 09:12 75 10 L 106/65 95 01/18/24 08:58 75 10 L 101/55 99 01/18/24 08:43 77 12 99/58 98 01/18/24 08:28 84 9 L 103/55 97 01/18/24 06:55 71 16 112/54 98 01/18/24 06:15 98.0 F 80 16 124/64 98 Intake and Output 01/18/24 01/18/24 01/18/24 06:59 14:59 22:59 Intake Total 701 Output Total 25 Balance 676 Intake: IV 701 Output: Estimated Blood Loss 25 Other: # Voids 2 Weight 97.6 kg Results CBC & Chem 7: 01/18/24 06:14 Labs: Abnormal Lab Results - Last 24 Hours (Table) 01/18/24 01/18/24 Range/Units 06:22 16:40 POC Glucose (mg/dL) 119 H 122 H (70-110) mg/dL
[2024-01-18] MEDS: HYDROcodone/APAP 7.5-325MG 1 EACH TAB PO PRN (18:49)
[2024-01-18 20:09] LABS: Glucose,Whole Blood 185 mg/dL (70-110)
[2024-01-18] MEDS: SENNOSIDES-DOCUSATE SODIUM 1 EACH TAB PO SCH (20:23)
[2024-01-18] MEDS: VARENICLINE 1 MG TAB PO SCH (20:23)
[2024-01-18] MEDS: TOPIRAMATE 100 MG TAB PO SCH (20:23)
[2024-01-18] MEDS: INSULIN ASPART (NovoLOG) 100 UNIT/ML VIAL SQ SCH (20:23)
[2024-01-18] MEDS: DOXEPIN 25 MG CAP PO SCH (20:23)
[2024-01-18] MEDS: HYDROmorphone 1 MG/ML 1 ML SYRINGE IVP PRN (20:24)
[2024-01-19] MEDS: LEVOTHYROXINE 75 MCG TAB PO SCH (05:37)
[2024-01-19 06:21] LABS: Glucose,Whole Blood 170 mg/dL (70-110)
--- NOTE | 2024-01-19 06:46 | P.PN ---
Progress Note - Text Progress Note Date: 01/19/24 patient was seen and evaluated at bedside. Status post postoperative day 1 for Left total knee arthroplasty patient had adductor canal catheter for postop pain control. Patient rated pain at rest 4 out of 10 in severity. Patient describes pain is aching, throbbing type on the sides of the knee and back of the knee. Patient started walking with support. With activity patient pain levels are 6-7 out of 10 in severity. With the help of oral pain medications pain levels are tolerable. Patient denied any weakness/ numbness in lower extremities. patient denied any fever, pain over the catheter site. Physical exam: Patient vital signs stable Patient is alert awake oriented 3 responding to all questions appropriately Examination of the catheter site showed dressing intact, no leaking fluid around the catheter, no redness, no tenderness over the catheter insertion area. plan: status post postoperative day 1 for left total knee arthroplasty with adductor canal catheter for pain control. Patient was discussed to continue the medication at the rate of 8 mL per hour until the pump is completely empty and instructed the patient how to discontinue the catheter
[2024-01-19 07:52] VITALS: BP 123/78; PULSE 90; RESP 16; TEMP 97.9
[2024-01-19 09:04] LABS: Basophils # (A) 0.02 X 10*3/uL (0.00-0.10); Basophils % (A) 0.4 %; Eosinophils # (A) 0.17 X 10*3/uL (0.04-0.35); HCT 35.7 % (37.2-46.3); HGB 11.4 g/dL (12.0-15.0); Lymphocytes # (A) 2.18 X 10*3/uL (0.90-5.00); Lymphocytes % (A) 38.8 %; MCH 26.6 pg (27.0-32.0); MCHC 31.9 g/dL (32.0-37.0); MCV 83.4 FL (80.0-97.0); Mean Platelet Volume 10.1 FL (9.5-12.2); Monocytes # (A) 0.47 X 10*3/uL (0.20-1.00); Monocytes % (A) 8.4 %; NRBC Per 100 WBC 0 X 10*3/uL (0.00-0.01); Neutrophils # (A) 2.76 X 10*3/uL (1.80-7.70); Platelet Count 240 X 10*3/uL (140-440); RBC 4.28 X 10*6/uL (4.10-5.20); RDW 15.5 % (11.5-14.5); WBC 5.62 X 10*3/uL (4.50-10.00)
[2024-01-19] MEDS: DAPAGLIFLOZIN PROPANEDIOL 10 MG TABLET PO SCH (09:47)
[2024-01-19] MEDS: ATORVASTATIN 80 MG TAB PO SCH (09:47)
[2024-01-19] MEDS: OLANZapine 10 MG TAB PO SCH (09:47)
[2024-01-19] MEDS: APIXABAN 2.5 MG TABLET PO SCH (09:47)
[2024-01-19] MEDS: FENOFIBRATE 54 MG TAB PO SCH (09:48)
--- NOTE | 2024-01-19 10:09 | P.DS ---
Providers Date of admission: 01/18/24 05:33 Expected date of discharge: 01/19/24 Attending physician: Austen Alcaraz Consults: 01/18/24 08:30 Consult Physician Routine Consulting Provider: Mingo Hansen Consult Reason/Comments: medical management Do you want consulting provider notified?: Yes Primary care physician: Patt Lopez - Discharge Diagnosis(es) (1) History of total left knee replacement Current Visit: Yes Status: Acute (2) Status post revision of total replacement of left knee Current Visit: Yes Status: Acute Hospital Course: This is a 43-year-old female with a history of left total knee arthroplasty performed on 03/22/2023. The patient presented for evaluation as an outpatient after a fall causing her left knee to be unstable and painful. After discussion and consideration patient elects to proceed with revision left total knee arthroplasty. The patient is seen preoperatively by Dr. Alcaraz and medically cleared for surgery by their primary care physician. Patient is admitted to [facility] on 01/18/2024 for revision left total knee arthroplasty with polyethylene exchange. The procedure is performed without complication or sequelae. The patient is doing well postoperatively. Labs and vital signs are stable on day of discharge. On day of discharge patient's knee incision is healing well. There is minimal erythema. There is no drainage noted at this time. There is minimal soft tissue swelling to the knee. Patient has full foot and ankle motion without difficulty or pain. Calf is soft and nontender to palpation. Neurovascular status to the left lower extremity is intact. Patient is discharged home in good condition. Please see med rec for accurate list of home medications. Plan - Discharge Summary Discharge Rx Participant: No New Discharge Prescriptions: New Sennosides [Senokot] 2 tab PO DAILY PRN #60 tablet PRN Reason: Constipation Apixaban [Eliquis] 2.5 mg PO BID 30 Days #60 tab HYDROcodone/APAP 7.5-325MG [[place] 7.5-325] 1 - 2 tab PO Q6H PRN #32 tab PRN Reason: Pain No Action Rizatriptan Odt [Maxalt PAPER DELIVERER] 10 mg PO BID PRN PRN Reason: Migraine Headache OLANZapine [ZyPREXA] 10 mg PO QAM Levothyroxine Sodium [Synthroid] 75 mcg PO QAM Gabapentin 1,200 mg PO TID Doxepin HCl 50 mg PO HS Buprenorphine HCl/Naloxone HCl [Suboxone 8 mg-2 mg Sl Film] 0.5 film SL QAM busPIRone HCl [Buspar] 10 mg PO TID Topiramate [Topamax] 100 mg PO BID Tirzepatide [Mounjaro] 12.5 mg SQ TU HYDROcodone/APAP 7.5-325MG [[place] 7.5-325] 1 - 2 tab PO TID PRN PRN Reason: Pain Fenofibrate 54 mg PO DAILY Dapagliflozin Propanediol [Farxiga] 10 mg PO DAILY hydrOXYzine HCL [Atarax] 100 mg PO Q6H PRN PRN Reason: Anxiety Varenicline [Chantix Starter Pack] 1 mg PO BID Atorvastatin [Lipitor] 80 mg PO DAILY Ondansetron [Zofran] 4 mg PO TID PRN PRN Reason: Nausea Glimepiride 4 mg PO DAILY Discharge Medication List Buprenorphine HCl/Naloxone HCl [Suboxone 8 mg-2 mg Sl Film] 0.5 film SL QAM 02/08/20 [History] Doxepin HCl 50 mg PO HS 02/08/20 [History] Gabapentin 1,200 mg PO TID 02/08/20 [History] Levothyroxine Sodium [Synthroid] 75 mcg PO QAM 02/08/20 [History] OLANZapine [ZyPREXA] 10 mg PO QAM 02/08/20 [History] Rizatriptan Odt [Maxalt PAPER DELIVERER] 10 mg PO BID PRN 02/08/20 [History] Dapagliflozin Propanediol [Farxiga] 10 mg PO DAILY 02/18/21 [History] busPIRone HCl [Buspar] 10 mg PO TID 02/18/21 [History] Varenicline [Chantix Starter Pack] 1 mg PO BID 12/29/21 [History] hydrOXYzine HCL [Atarax] 100 mg PO Q6H PRN 12/29/21 [History] Atorvastatin [Lipitor] 80 mg PO DAILY 03/28/23 [History] Fenofibrate 54 mg PO DAILY 01/12/24 [History] Glimepiride 4 mg PO DAILY 01/12/24 [History] HYDROcodone/APAP 7.5-325MG [[place] 7.5-325] 1 - 2 tab PO TID PRN 01/12/24 [History] Ondansetron [Zofran] 4 mg PO TID PRN 01/12/24 [History] Tirzepatide [Mounjaro] 12.5 mg SQ TU 01/12/24 [History] Topiramate [Topamax] 100 mg PO BID 01/12/24 [History] Apixaban [Eliquis] 2.5 mg PO BID 30 Days #60 tab 01/18/24 [Rx] HYDROcodone/APAP 7.5-325MG [[place] 7.5-325] 1 - 2 tab PO Q6H PRN #32 tab 01/18/24 [Rx] Sennosides [Senokot] 2 tab PO DAILY PRN #60 tablet 01/18/24 [Rx] Follow up Appointment(s)/Referral(s): Austen Alcaraz DO [Doctor of Osteopathic Medicine] - 2 Weeks Activity/Diet/Wound Care/Special Instructions: Weightbearing as tolerated with a walker. CPM 5-6h daily as tolerated. Leave dressing intact. Dressing may be removed by home care nurse or by patient in 7 days. Then change dressing twice daily until follow up. May shower with initial dressing intact and after removal. If dressing become saturated, please remove. Recommend use of compression stockings daily until follow up to help prevent swelling and blood clots. May remove at night before sleeping. Please take Eliquis twice daily for 30 days to prevent blood clots. Please follow up with [facility] and call with any questions or concerns, . Discharge Disposition: HOME WITH HOME HEALTH SERVICES
--- NOTE | 2024-01-19 18:13 | P.PN ---
Progress Note - Text Progress Note Date: 01/19/24 - Chief Complaint Left knee surgery - History of Present Illness Very pleasant 43-year-old patient, follows with Dr. Patt Lopez. Chronic medical conditions include diabetes, GERD, hyperlipidemia, prior pulmonary embolism currently not on anticoagulation, hypothyroid, the pulmonary embolism was from COV[facility] in January 2021. Peripheral neuropathy in hands and feet. Prior history of drug addiction. Crohn's colitis with averaging about 2 bowel movements a month. Also has bipolar. Patient is undergone left knee revision surgery. Had surgery about a year ago then took a fall. With injury. Postprocedure pain is controlled. No nausea vomiting. No chest pain. January 18: Pain in the operative site. Did tolerate a diet. Family at the bedside. No cardiac symptoms. Otherwise doing fine. Social history: Started smoking in 1997. Down to 2 cigarettes a day from 2 packs a day. No alcohol in over 20 years. No drug use since 2017. Physical examination: VITAL SIGNS: 97.9, 90, 16, 123 x 78, 98% room air GENERAL: Sitting up in bed, not in distress EYES: Pupils equal. Conjunctiva savannah l. HEENT: External appearance of nose and ears normal, oral cavity grossly normal. NECK: JVD not raised; masses not palpable. HEART: First and second heart sounds are normal; no edema. LUNGS: Respiratory rate normal; clear to auscultation. ABDOMEN: Soft, nontender, liver spleen not palpable, no masses palpable. PSYCH: Alert and oriented x3; mood and affect savannah l. MUSCULOSKELETAL:No Clubbing/cyanosis;muscles-grossly intact. Dressing of the left knee INVESTIGATIONS, reviewed in the clinical context: January 18: White count 5.6 hemoglobin 11.4 platelets 240 December 20, 2023: White count 7.6 hemoglobin 13.8 platelets 271 sodium 137 BUN 21.9 creatinine 0.9 Assessment plan: -Revision left knee arthroplasty. Secondary to fall. With a prior history of arthroplasty Eliquis for DVT prophylaxis. Received IV cefazolin for infection prophylaxis. -Chronic Crohn's colitis At baseline has about 2 bowel movements a month -Acute postprocedure blood loss anemia expected from surgery Take ferrous sulfate [id number] -Bipolar disorder BuSpar. Zyprexa. -Hyperlipidemia Lipitor -Diabetes mellitus type 2 on oral hypoglycemic Glimepiride. Farxiga. Mounjaro -Obesity BMI 32.7 On Mounjaro -Peripheral neuropathy Gabapentin -Chronic insomnia Doxepin -Chronic nicotine dependence, cigarette smoker Chantix Discussed. Questions answered. Follow-up with PCP. Thank Dr. Alcaraz Past Medical History Past Medical History: Diabetes Mellitus, GERD/Reflux, Hyperlipidemia, Osteoarthritis (OA), Pneumonia, Pulmonary Embolus (PE), Thyroid Disorder Additional Past Medical History / Comment(s): Born with hole in heart, has had no problems. 01/26/21 Covid Pneumonia and PE's in both lungs. Neuropathy in bilateral feet/legs, past drug addiction, migraines, chronic back pain/herniated disc, arthritis in multiple joints, IBS, hypothyroid, rhinitis. History of Any Multi-Drug Resistant Organisms: None Reported Past Surgical History: Appendectomy, Back Surgery, Cholecystectomy, Hysterectomy, Joint Replacement, Orthopedic Surgery Additional Past Surgical History / Comment(s): Cage in back Dec 2021, multiple left knee surgeries, colonoscopy/benign polypectomy, left knee replacement. Past Anesthesia/Blood Transfusion Reactions: No Reported Reaction Additional Past Anesthesia/Blood Transfusion Reaction / Comm: No hx blood transfusion. Smoking Status: Current every day smoker
== END 2024-01-19 12:03 | disposition home health service (06) | DRG 488 ==
LOC: 2ORMAIN 05:33 → 4SSUR 12:24
PROVIDERS: ADMIT Orthopaedic Surgery; ATTEND Orthopaedic Surgery
PROC: 0SUW09Z Supplement Left Knee Joint, Tibial Surface with Liner, Open Approach (ICD-10-PCS; 2024-01-18)
PROC: 3E0T3BZ Introduction of Anesthetic Agent into Peripheral Nerves and Plexi, Percutaneous Approach (ICD-10-PCS; 2024-01-18)
PROC: 0SPD09Z Removal of Liner from Left Knee Joint, Open Approach (ICD-10-PCS; principal; 2024-01-18 07:00)
DX: T84.84XA Pain due to internal orthopedic prosthetic devices, implants and grafts, initial encounter (principal); D62 Acute posthemorrhagic anemia; K50.10 Crohn's disease of large intestine without complications; T84.023A Instability of internal left knee prosthesis, initial encounter; K21.9 Gastro-esophageal reflux disease without esophagitis; E11.42 Type 2 diabetes mellitus with diabetic polyneuropathy; F17.210 Nicotine dependence, cigarettes, uncomplicated; E78.5 Hyperlipidemia, unspecified; F51.04 Psychophysiologic insomnia; M79.7 Fibromyalgia; E03.9 Hypothyroidism, unspecified; Z88.5 Allergy status to narcotic agent; Z88.8 Allergy status to other drugs, medicaments and biological substances; W19.XXXA Unspecified fall, initial encounter; Y83.1 Surgical operation with implant of artificial internal device as the cause of abnormal reaction of the patient, or of later complication, without mention of misadventure at the time of the procedure; M25.362 Other instability, left knee; Z79.01 Long term (current) use of anticoagulants; M62.81 Muscle weakness (generalized); Z79.84 Long term (current) use of oral hypoglycemic drugs; Z79.890 Hormone replacement therapy; Z79.899 Other long term (current) drug therapy; Z86.16 Personal history of COVID-19; Z86.711 Personal history of pulmonary embolism; Z87.01 Personal history of pneumonia (recurrent); Z90.710 Acquired absence of both cervix and uterus; Z87.19 Personal history of other diseases of the digestive system; Y79.2 Prosthetic and other implants, materials and accessory orthopedic devices associated with adverse incidents
CPT/HCPCS: 64448; 64999; 84132; 85025

== ENCOUNTER → 2024-08-03 | Outpatient (CLI) | payer MEDICARE, BC ==
[2024-08-03 15:05] LABS: HCT 39.9 % (37.2-46.3); HGB 13.2 g/dL (12.0-15.0); MCH 26.5 pg (27.0-32.0); MCHC 33.1 g/dL (32.0-37.0); MCV 80.1 FL (80.0-97.0); Mean Platelet Volume 10.4 FL (9.5-12.2); NRBC Per 100 WBC 0 X 10*3/uL (0.00-0.01); Platelet Count 297 X 10*3/uL (140-440); RBC 4.98 X 10*6/uL (4.10-5.20); RDW 14.9 % (11.5-14.5); WBC 9.89 X 10*3/uL (4.50-10.00)
[2024-08-03 15:30] LABS: Lymphocytes # (M) 5.64 X 10*3/uL (0.90-5.00); Neutrophils # (M) 3.26 X 10*3/uL (1.80-7.70); Neutrophils % (M) 33 %; Nucleated Red Blood Cells 1 /100 WBCS; RBC Morphology Normal (Normal)
[2024-08-03 15:42] LABS: Erythrocyte Sedimentation Rate 13 mm/Hr (0-20)
== END | disposition home or self-care (01) ==
LOC: LABWHC1 09:18
PROVIDERS: ATTEND Internal Medicine
DX: J98.4 Other disorders of lung (principal)
CPT/HCPCS: 36415; 85025; 85652; 86038